=== PATIENT | male | born 1980 | race Caucasian/White ===

== ENCOUNTER 2016-10-19 15:09 | Emergency (ER) | payer OTHER ==
[2016-10-19 16:30] VITALS: BP 153/84
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
[2016-10-19] MEDS: Ibuprofen TAB* 400 MG PO ONE (16:56)
[2016-10-19] MEDS ORDERED: Ibuprofen TAB* 400 MG ONE (16:58)
== END 2016-10-19 17:45 | disposition home or self-care (01) ==
LOC: UCEAST 15:09
DX: H61.22 Impacted cerumen, left ear (principal); H92.01 Otalgia, right ear; H91.91 Unspecified hearing loss, right ear; F17.210 Nicotine dependence, cigarettes, uncomplicated; Z71.6 Tobacco abuse counseling
CPT/HCPCS: 99203; A9270-GY; G0463

== ENCOUNTER 2017-03-23 13:06 | Emergency (ER) | payer SELFPAY ==
[2017-03-23 13:47] VITALS: BP 110/72
--- NOTE | 2017-03-23 16:43 | UC ---
Johnson Barton Benjamin, scribed for Dudley Rainey MD on 03/23/17 at 1600 . Skin Complaint HPI - HPI Summary HPI Summary: 36yo male c/o of a tick bite on the left inner thigh Pt found the tick on him on Thursday. Pt reports BERGMAN and body ache, also had red rash initially, but not now. Hx of previous Lyme dz. - History of Current Complaint Chief Complaint: UCSkin Time Seen by Provider: 03/23/17 15:54 Stated Complaint: TICK BITE Hx Obtained From: Patient Onset/Duration: Sudden Onset, Lasting Days - 3 days, Still Present, Worse Since - progressing Timing: Constant Onset Severity: Mild Current Severity: Moderate Pain Scale Used: 0-10 Numeric Location: Other - left thigh Aggravating: Nothing Alleviating: Nothing Associated Signs & Symptoms: Positive: Rash - red rash on left thigh - Allergy/Home Medications Allergies/Adverse Reactions: Allergies Allergy/AdvReac Type Severity Reaction Status Date / Time No Known Allergies Allergy Verified 05/24/15 14:53 Home Medications: Home Medications Acetaminophen [Tylenol] 325 mg PO 03/23/17 [History] Ibuprofen TAB* [Advil TAB*] 400 mg PO Q6H PRN 03/23/17 [History Confirmed ] Review of Systems Constitutional: Fatigue Skin: Negative Eyes: Negative ENT: Negative Respiratory: Negative Cardiovascular: Negative Gastrointestinal: Negative Genitourinary: Negative Motor: Negative Neurovascular: Negative Musculoskeletal: Other: - neck tenderness Neurological: Negative, Other - Headache Psychological: Negative All Other Systems Reviewed And Are Negative: Yes PMH/Surg Hx/FS Hx/Imm Hx Previously Healthy: No - Lyme Dz. - Surgical History Surgical History: None - Family History Known Family History: Positive: Diabetes Negative: Cardiac Disease, Hypertension - Social History Alcohol Use: None Substance Use Type: None Smoking Status (MU): Heavy Every Day Tobacco Smoker Type: Cigarettes Amount Used/How Often: 1 ppd Length of Time of Smoking/Using Tobacco: Began at 27 years of age Have You Smoked in the Last Year: Yes - Immunization History Most Recent Influenza Vaccination: "not sure" Most Recent Tetanus Shot: 2010 Most Recent Pneumonia Vaccination: "not sure" Physical Exam Triage Information Reviewed: Yes Appearance: Well-Appearing, No Pain Distress, Well-Nourished Vital Signs: Initial Vital Signs Temp 98.3 F 03/23/17 13:41 Pulse 81 03/23/17 13:41 Resp 18 03/23/17 13:41 BP 110/72 03/23/17 13:41 Pulse Ox 100 03/23/17 13:41 Vital Signs Reviewed: Yes Eyes: Positive: Conjunctiva Clear ENT: Positive: Normal ENT inspection Neck: Positive: Supple, Nontender Respiratory: Positive: Chest non-tender, Lungs clear, Normal breath sounds Cardiovascular: Positive: RRR, No Murmur Musculoskeletal: Positive: Strength Intact, ROM Intact Neurological: Positive: Alert, Muscle Tone Normal Psychological: Positive: Age Appropriate Behavior Skin: Negative: rashes Course/Dx - Course Course Of Treatment: Reviewed medications list. PATIENT REPORTS THE SAME SX PRIOR LYME DISEASE AFTER A TICK BITE. WILL TREAT FOR LYME. - Diagnoses Provider Diagnoses: TICK BITE, ARTHRALGIA Discharge - Discharge Plan Condition: Stable Disposition: HOME Prescriptions: DOXYcycline CAP(*) [DOXYcycline 100MG CAP(*)] 100 mg PO BID #42 cap Patient Education Materials: Tick Bite (ED) Referrals: No Primary Care Phys,NOPCP [Primary Care Provider] - Additional Instructions: FOLLOW UP WITH YOUR DOCTOR. GO TO THE EMERGENCY DEPARTMENT FOR ANY WORSENING OF YOUR CONDITION OR QUESTIONS OR CONCERNS. The documentation as recorded by the Johnson barker Benjamin accurately reflects the service I personally performed and the decisions made by , Dudley Rainey MD.
== END 2017-03-23 16:14 | disposition home or self-care (01) ==
LOC: UCEAST 13:06
DX: S70.362A Insect bite (nonvenomous), left thigh, initial encounter (principal); W57.XXXA Bitten or stung by nonvenomous insect and other nonvenomous arthropods, initial encounter; Y92.9 Unspecified place or not applicable; M25.50 Pain in unspecified joint; F17.210 Nicotine dependence, cigarettes, uncomplicated
CPT/HCPCS: 99212; G0463

== ENCOUNTER 2018-02-16 02:42 | Inpatient (IN) | payer OTHER ==
[2018-02-16 03:26] LABS: ABS Basophils 0 10^3/ul (0-0.2); ABS Eosinophils 0.1 10^3/ul (0-0.6); ABS Lymphocytes 2.1 10^3/ul (1.0-4.8); ABS Monocytes 0.5 10^3/ul (0-0.8); ABS Neutrophils 4.2 10^3/ul (1.5-7.7); ABS Nucleated RBC 0 10^3/ul; Hematocrit 42 % (42-52); Hemoglobin 14.3 g/dl (14.0-18.0); Lymphocyte % 30.4 % (25-47); Mean Corpuscular HGB Conc 34 g/dl (31-36); Mean Corpuscular Hemoglobin 32 pg (27-31); Mean Corpuscular Volume 94 fL (80-94); Mean Platelet Volume 8.4 um3 (7.4-10.4); Nucleated Red Blood Cells % 0; Platelet Count 191 10^3/ul (150-450); Red Blood Count 4.46 10^6/ul (4.0-5.4); Red Cell Distribution Width 14 % (10.5-15); White Blood Count 6.8 10^3/ul (3.5-10.8)
[2018-02-16 03:27] LABS: Urine Appearance Clear; Urine Blood Negative (Negative); Urine Color Straw; Urine Ketones Negative (Negative); Urine Protein Negative (Negative); Urine Specific Gravity 1.006 (1.010-1.030); Urine Urobilinogen Negative (Negative)
[2018-02-16 03:43] LABS: EGFR Non-African American 81.7 (>60)
--- NOTE | 2018-02-16 06:51 | ED ---
Jyoti Barton Emily, scribed for Jordan Hough MD on 02/16/18 at 0319 . Psychiatric Complaint - HPI Summary HPI Summary: This patient is a 37 year old M presenting to [facility] with a chief complaint of SI with plan that began SUSTAINABLE AGRICULTURE FACULTY. Pt reports [place] bridge [place] 2 hours SUSTAINABLE AGRICULTURE FACULTY thinking about hanging himself. The patient rates the pain 0/10 in severity. Symptoms aggravated by nothing. Symptoms alleviated by nothing. Patient denies auditory hallucination. Pt reports he does not take his medication because it doesnt change his outcome. - History Of Current Complaint Chief Complaint: EDMentalHealth Hx Obtained From: Patient Onset/Duration: Sudden Onset, Lasting Hours, Still Present Timing: Constant Severity Initially: Moderate Severity Currently: Moderate Character: Depressed Aggravating Factor(s): Nothing Alleviating Factor(s): Nothing Has Suicidal: Reports: Thoughts, With A Plan - Allergies/Home Medications Allergies/Adverse Reactions: Allergies Allergy/AdvReac Type Severity Reaction Status Date / Time No Known Allergies Allergy Verified 02/16/18 04:16 Home Medications: Home Medications Wellbutrin TAB* 02/16/18 [History] PMH/Surg Hx/FS Hx/Imm Hx Previously Healthy: No Musculoskeletal History: Reports: Other Musculoskeletal History - broke right hand last year Neurological History: Denies: Hx Dementia, Hx Developmental Delay, Hx Headaches, Hx Migraine, Hx Nerve Disease, Hx Seizures, Hx Spinal Cord Injury, Hx Transient Ischemic Attacks (TIA), Other Neuro Impairments/Disorders Psychiatric History: Denies: Hx Eating Disorder, Hx of Violent Episodes Against Others Infectious Disease History: No Infectious Disease History: Denies: Hx Clostridium Difficile, Hx Hepatitis, Hx Human Immunodeficiency Virus (HIV), Hx of Known/Suspected MRSA, Hx Shingles, Hx Tuberculosis, Hx Known/ Suspected VRE, Hx Known/Suspected VRSA, History Other Infectious Disease, Traveled Outside the [place] in Last 30 Days - Family History Known Family History: Positive: Diabetes Negative: Cardiac Disease, Hypertension - Social History Occupation: Employed Full-time Lives: Long Term Alcohol Use: None Hx Substance Use: No Substance Use Type: Reports: None Hx Tobacco Use: Yes Smoking Status (MU): Heavy Every Day Tobacco Smoker Type: Cigarettes Amount Used/How Often: 1 ppd Length of Time of Smoking/Using Tobacco: Began at 27 years of age Have You Smoked in the Last Year: Yes Review of Systems Negative: Fever Psychological: Other - Positive SI All Other Systems Reviewed And Are Negative: Yes Physical Exam - Summary Physical Exam Summary: VITAL SIGNS: Reviewed. GENERAL: ~Patient is a well-developed and nourished male who is lying comfortable in the stretcher. Patient is not in any acute respiratory distress. HEAD AND FACE: No signs of trauma. No ecchymosis, hematomas or skull depressions. No sinus tenderness. EYES: PERRLA, EOMI x 2, No injected conjunctiva, no nystagmus. EARS: Hearing grossly intact. Ear canals and tympanic membranes are within normal limits. MOUTH: Oropharynx within normal limits. NECK: Supple, trachea is midline, no adenopathy, no JVD, no carotid bruit, no c- spine tenderness, neck with full ROM. CHEST: Symmetric, no tenderness at palpation LUNGS: Clear to auscultation bilaterally. No wheezing or crackles. CVS: Regular rate and rhythm, S1 and S2 present, no murmurs or gallops appreciated. ABDOMEN: Soft, non-tender. No signs of distention. No rebound no guarding, and no masses palpated. Bowel sounds are normal. EXTREMITIES: FROM in all major joints, no edema, no cyanosis or clubbing. NEURO: Alert and oriented x 3. No acute neurological deficits. Speech is normal and follows commands. PSYCH: Cooperative, seems sad, withdrawn SKIN: Dry and warm Triage Information Reviewed: Yes Vital Signs On Initial Exam: Initial Vitals Temp Pulse Resp BP Pulse Ox 97.5 F 93 16 140/89 98 02/16/18 02:44 02/16/18 02:44 02/16/18 02:44 02/16/18 02:44 02/16/18 02:44 Vital Signs Reviewed: Yes Diagnostics - Vital Signs Vital Signs Temp Pulse Resp BP Pulse Ox 02/16/18 02:44 97.5 F 93 16 140/89 98 - Laboratory Result Diagrams: 02/16/18 03:13 02/16/18 03:13 Lab Statement: Any lab studies that have been ordered have been reviewed, and results considered in the medical decision making process. Course/Dx - Course Course Of Treatment: This patient is a 37 year old M presenting to [facility] with a chief complaint of SI with plan that began SUSTAINABLE AGRICULTURE FACULTY. Pt reports [place] was [place] bridge for 2 hours SUSTAINABLE AGRICULTURE FACULTY thinking about hanging himself. Per [facility], the patient will be admitted for further evaluation. The patient is agreeable with this plan. - Differential Dx/Clinical Impression Provider Diagnosis: Depression Discharge - Sign-Out/Discharge Documenting (check all that apply): Discharge/Admit/Transfer - Admit to [facility] [place] - Discharge Plan Condition: Stable Disposition: ADMITTED TO [facility] documentation as recorded by the Jyoti barker Emily accurately reflects the service I personally performed and the decisions made by me, Jordan Hough MD.
[2018-02-16] MEDS ORDERED: Acetaminophen TAB* 325 MG PO ONE (06:52)
--- NOTE | 2018-02-16 07:27 | PN ---
ED Flex Patient Progress Note Subjective: This is a 37 year-old M who is pending admission to [facility] secondary to SI w/ plan . Pt offers no complaints at this time. Admits he's not been taking his Wellbutrin for the past month. Has not had anything to eat or drink since he's been here but would like breakfast this morning. Objective: Vitals: Most recent vital signs documented below. General patient sleeping upon entrance term however he is easily arousable with vocal stimulation - NAD, Alert and oriented x3. Heart: rrr, S1-S2 Lungs: CTA, breathing easily AB: Soft, nontender to palpation, positive bowel sounds Integ: Warm, dry, well perfused Assessment: SI with plan Plan: Pending psychiatric admit (voluntary). While in ED Will follow up daily . Vital Signs Temp Pulse Resp BP Pulse Ox 97.5 F 93 16 140/89 98 02/16/18 02:44 02/16/18 02:44 02/16/18 02:44 02/16/18 02:44 02/16/18 02:44 Lab Results - Entire Visit 02/16/18 02/16/18 02/16/18 03:13 03:13 03:13 WBC RBC Hgb Hct MCV MCH MCHC RDW Plt Count MPV Neut % (Auto) Lymph % (Auto) [place] % (Auto) Eos % (Auto) Baso % (Auto) Absolute Neuts (auto) Absolute Lymphs (auto) Absolute Monos (auto) Absolute Eos (auto) Absolute Basos (auto) Absolute Nucleated RBC Nucleated RBC % Sodium 141 Potassium 3.9 Chloride 107 Carbon Dioxide 24 Anion Gap 10 BUN 15 Creatinine 1.02 Est GFR ( Amer) 105.1 Est GFR (Non-Af Amer) 81.7 BUN/Creatinine Ratio 14.7 Glucose 106 H Calcium 8.7 Total Bilirubin 0.60 AST 32 ALT 31 Alkaline Phosphatase 45 Total Protein 6.7 Albumin 4.3 Globulin 2.4 Albumin/Globulin Ratio 1.8 TSH 1.45 Urine Color Straw Urine Appearance Clear Urine pH 6.0 Ur Specific [place] 1.006 L Urine Protein Negative Urine Ketones Negative Urine Blood Negative Urine Nitrate Negative Urine Bilirubin Negative Urine Urobilinogen Negative Ur Leukocyte Esterase Negative Urine Glucose Negative Salicylates < 2.50 Urine Opiates Screen None detected Acetaminophen < 15 Ur Barbiturates Screen None detected Ur Phencyclidine Scrn None detected Ur Amphetamines Screen None detected U Benzodiazepines Scrn None detected [place] < 0.10 L Urine Cocaine Screen Presumptive positive A U Cannabinoids Screen None detected Serum Alcohol 144 H 02/16/18 03:13 WBC 6.8 RBC 4.46 Hgb 14.3 Hct 42 MCV 94 MCH 32 H MCHC 34 RDW 14 Plt Count 191 MPV 8.4 Neut % (Auto) 61.3 Lymph % (Auto) 30.4 [place] % (Auto) 6.8 Eos % (Auto) 1.0 Baso % (Auto) 0.5 Absolute Neuts (auto) 4.2 Absolute Lymphs (auto) 2.1 Absolute Monos (auto) 0.5 Absolute Eos (auto) 0.1 Absolute Basos (auto) 0 Absolute Nucleated RBC 0 Nucleated RBC % 0 Sodium Potassium Chloride Carbon Dioxide Anion Gap BUN Creatinine Est GFR ( Amer) Est GFR (Non-Af Amer) BUN/Creatinine Ratio Glucose Calcium Total Bilirubin AST ALT Alkaline Phosphatase Total Protein Albumin Globulin Albumin/Globulin Ratio TSH Urine Color Urine Appearance Urine pH Ur Specific [place] Urine Protein Urine Ketones Urine Blood Urine Nitrate Urine Bilirubin Urine Urobilinogen Ur Leukocyte Esterase Urine Glucose Salicylates Urine Opiates Screen Acetaminophen Ur Barbiturates Screen Ur Phencyclidine Scrn Ur Amphetamines Screen U Benzodiazepines Scrn [place] Urine Cocaine Screen U Cannabinoids Screen Serum Alcohol
[2018-02-16] MEDS ORDERED: Nicotine Inhaler* 10 MG AMP INH PRN (10:54)
[2018-02-16] MEDS ORDERED: Al Hydrox/Mg Hydrox/Simet LIQ* 30 ML UDC PO PRN (10:54)
[2018-02-16] MEDS ORDERED: Acetaminophen TAB* 325 MG PO PRN (10:54)
[2018-02-16] MEDS ORDERED: Mouth Piece, Nicotine* 1 EACH CARTRIDGE INH ONE (11:00)
[2018-02-16] MEDS: Vitamin THERAPEUTIC TAB PO SCH (13:10)
[2018-02-16] MEDS: Nicotine GUM* 2 MG PO PRN ×2 (15:12→19:04)
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
[2018-02-16] MEDS: Lithium Carbonate TAB* 300 MG PO SCH (21:47)
[2018-02-17] MEDS: Nicotine PATCH 21 MG/24 HR* PATCH TRANSDERM SCH (08:46)
[2018-02-17] MEDS: buPROPion SR TAB.SR* 100 MG PO SCH (08:47)
[2018-02-17] MEDS: Vitamin THERAPEUTIC TAB PO SCH (08:47)
[2018-02-17] MEDS: Nicotine GUM* 2 MG PO PRN ×5 (08:47→23:21)
--- NOTE | 2018-02-17 16:05 | PN ---
Subjective - Subjective Date of Service: 02/17/18 Service Type: 29739 Hosp care 25 min moderate complexity Subjective: Patient reports continued frustrated mood in regards to stressor of family court. He minimizes recent use of alcohol and cocaine and blames various external factors. Patient identifies needing spirituality and that his discussion with chief deputyAlan was extremely helpful. Patient denies need for medications and cites history of months at a time of sobriety and mental stability without prescription medications. Patient denies suicidal ideation or passive wish. Executive Marketing Assistant discussed importance of 1-2 years of abstinence to differentiate between substance induced mood disorders and other psychiatric diagnoses. Objective - Appearance Appearance: Well Developed/Nourished Dysmorphic Features: No Hygiene: Normal Grooming: Well Kept - Behavior Psychomotor Activities: Normal Exhibits Abnormal Movement: No - Attitude and Relatedness Attitude and Relatedness: Superficially Cooperative Eye Contact: Good - Speech Quality: Unpressured Latencies: Normal Quantity: Appropriate - Mood Patient's Decription of Mood: "frustrated" - Affect Observed Affect: Good Affect Consistent with: Euthymia - Thought Process Patient's Thought Process: Coherent, Goal Directed Thought Content: No Passive Wish, No Suicidal Planning, No Homicidal Ideation, No Paranoid Ideation - Sensorium Experiencing Hallucinations: No, Sensorium is Clear Type of Hallucinations: Visual: No, Auditory: No, Command: No - Level of Consciousness Level of Consciousness: Alert Orientation: Yes Intact, Yes Orientated to Time, Yes Orientated to Place, Yes Orientated to Person - Impulse Control Impulse Control: Intact - Insight and Judgement Insight and Judgement: Fair - Group Participation Particating in Group Activities: Yes - Medication Management Medication Management Adherence: Yes Assessment - Assessment Merits Inpatient Hospitalization: For Immediate Safety, For Stabilization, For Discharge Planning Inpatient DSM-V Dx: F43.25 Clinical Impression: 37yo white male who presented to ED with suicidal ideation and recent relapse with alcohol and cocaine. He is court-ordered to probation and [facility] outpatient treatment. He merits hospitalization for immediate safety and stabilization. Plan - Plan Treatment Plan: Name: BRITTNEY RICE Birthdate: 1980 [id number] continue acute intensive psychiatric treatment. continue medications as prescribed. discharge planning to include outpatient providers. Continued Medication Management: Different Medication Medications: Current Medications Acetaminophen (Tylenol Tab*) 650 mg PO Q4H PRN PRN Reason: for pain; or Temp >101 F Last Admin: 02/16/18 15:11 Dose: 650 mg Al Hydrox/Mg Hydrox/Simethicone (Maalox Plus*) 30 ml PO Q4H PRN PRN Reason: INDIGESTION Bupropion HCl (Wellbutrin Sr Tab*) 100 mg PO DAILY [facility] Last Admin: 02/17/18 08:47 Dose: 100 mg Witt Carbonate (Witt Carbonate Tab*) 300 mg PO BEDTIME [facility] Last Admin: 02/16/18 21:47 Dose: 300 mg Multivitamins (Theragran Tab*) 1 tab PO DAILY [facility] Last Admin: 02/17/18 08:47 Dose: 1 tab Nicotine (Nicotine Inhaler*) 10 mg INH Q2H PRN PRN Reason: CRAVING Nicotine (Nicotine Patch 21 Mg/24 Hr*) 1 patch TRANSDERM DAILY@0800 [facility] Last Admin: 02/17/18 08:46 Dose: 1 patch Nicotine Polacrilex (Nicotine Gum*) 2 mg PO Q2H PRN PRN Reason: CRAVING Last Admin: 02/17/18 12:11 Dose: 2 mg Pharmacy Profile Note (Nicotine Patch Removal Note*) 1 note PATCH OFF 2100 [facility] - Discharge Plan Discharge Plan: Outpatient Follow Up Outpatient Program: Private Clinician(s)
[2018-02-17] MEDS ORDERED: Nicotine Patch Removal NOTE PATCH OFF SCH (21:00)
[2018-02-17] MEDS: Lithium Carbonate TAB* 300 MG PO SCH (21:02)
[2018-02-17] MEDS ORDERED: diPHENhydraMINE PO* 50 MG PO PRN (21:24)
[2018-02-18 07:29] VITALS: BP 114/63
[2018-02-18] MEDS: buPROPion SR TAB.SR* 100 MG PO SCH (09:35)
[2018-02-18] MEDS: Vitamin THERAPEUTIC TAB PO SCH (09:35)
[2018-02-18] MEDS: Nicotine PATCH 21 MG/24 HR* PATCH TRANSDERM SCH (09:36)
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
== END 2018-02-18 14:15 | disposition home or self-care (01) | DRG 755 ==
LOC: ED 02:42 → BSU 10:34
PROVIDERS: ADMIT Psychiatry & Neurology Psychiatry; ATTEND Psychiatry & Neurology Psychiatry
DX: F43.25 Adjustment disorder with mixed disturbance of emotions and conduct (principal); R45.851 Suicidal ideations; Y90.6 Blood alcohol level of 120-199 mg/100 ml; F17.210 Nicotine dependence, cigarettes, uncomplicated; F90.9 Attention-deficit hyperactivity disorder, unspecified type; F31.9 Bipolar disorder, unspecified; F14.94 Cocaine use, unspecified with cocaine-induced mood disorder; Z91.14 Patient's other noncompliance with medication regimen; Z91.5 Personal history of self-harm; Z91.19 Patient's noncompliance with other medical treatment and regimen; Z91.410 Personal history of adult physical and sexual abuse; Z72.89 Other problems related to lifestyle; Z83.3 Family history of diabetes mellitus
CPT/HCPCS: 36415; 80053; 80061; 80178; 80307; 80320; 80329; 81003; 83036; 84443; 85025; 99222; 99232; 99238; 99284; A9270-GY; G0480

== ENCOUNTER 2018-08-09 20:59 | Inpatient (IN) | payer OTHER ==
--- NOTE | 2018-08-09 21:16 | ED ---
Psychiatric Complaint - HPI Summary HPI Summary: A 37 y/o M presents to ED brought in by ambulance and police for 941 mental health evaluation, SI with attempt. Per EMS: pt made attempts to hang himself today. At bedside, pt is handcuffed, avoiding eye contact and answering questions quietly. He states drinking ETOH today but denies using drugs. Pt is not medication compliant. Mother told nurse that patient took an unknown amount of Klonopin tonight. Pert PMHx: anxiety, ADHD, in-patient mental health treatment, suicide attempts. - History Of Current Complaint Chief Complaint: EDMentalHealth Time Seen by Provider: 08/09/18 21:10 Hx Obtained From: Patient, EMS, Other: - nurse Onset/Duration: Still Present Timing: Constant Related History: Positive For: Prior Psychiatric Issues Has Suicidal: Reports: Thoughts, Demonstrates Gesture - Allergies/Home Medications Allergies/Adverse Reactions: Allergies Allergy/AdvReac Type Severity Reaction Status Date / Time No Known Allergies Allergy Verified 08/09/18 22:49 Home Medications: Home Medications NK [No Home Medications Reported] 08/09/18 [History Confirmed 08/09/18] PMH/Surg Hx/FS Hx/Imm Hx Previously Healthy: No Musculoskeletal History: Reports: Other Musculoskeletal History - broke right hand last year Sensory History: Denies: Hx Contacts or Glasses, Hx Hearing Aid Opthamlomology History: Denies: Hx Contacts or Glasses Neurological History: Denies: Hx Dementia, Hx Developmental Delay, Hx Headaches, Hx Migraine, Hx Nerve Disease, Hx Seizures, Hx Spinal Cord Injury, Hx Transient Ischemic Attacks (TIA), Other Neuro Impairments/Disorders Psychiatric History: Reports: Hx Anxiety, Hx Attention Deficit Hyperactivity Disorder, Hx Depression, Hx Inpatient Treatment, Hx Community Mental Health Tx, Hx Suicide Attempt, Hx Substance Abuse Denies: Hx Eating Disorder, Hx of Violent Episodes Against Others Infectious Disease History: No Infectious Disease History: Reports: History Other Infectious Disease - varicella as a kid Denies: Hx Clostridium Difficile, Hx Hepatitis, Hx Human Immunodeficiency Virus (HIV), Hx of Known/Suspected MRSA, Hx Shingles, Hx Tuberculosis, Hx Known/ Suspected VRE, Hx Known/Suspected VRSA, Traveled Outside the [place] in Last 30 Days - Family History Known Family History: Positive: Diabetes Negative: Cardiac Disease, Hypertension - Social History Occupation: Unemployed - OTHER Lives: With Family Alcohol Use: ETOH 144 Hx Substance Use: No Substance Use Type: Reports: Cocaine Substance Use Comment - Amount & Last Used: Lab results was positive for cocaine Hx Tobacco Use: Yes Smoking Status (MU): Heavy Every Day Tobacco Smoker Type: Cigarettes Amount Used/How Often: 1 ppd Length of Time of Smoking/Using Tobacco: Began at 27 years of age Have You Smoked in the Last Year: Yes Review of Systems Negative: Fever Negative: Cough Psychological: Other - pos: SI with gesture All Other Systems Reviewed And Are Negative: Yes Physical Exam - Summary Physical Exam Summary: Appearance: Well-appearing, Well-nourished, lying in bed comfortable Skin: Warm, dry, no obvious rash Eyes: sclera anicteric, no conjunctival pallor ENT: mucous membranes moist Neck: deferred Respiratory: No signs of respiratory distress Cardiovascular: Appears well perfused, pulses are nml Abdomen: deferred Musculoskeletal: Moving all 4 extremities without obvious discomfort Neurological: Awake and alert, mentation is normal, speech is fluent and appropriate Psychiatric: affect is guarded Triage Information Reviewed: Yes Vital Signs On Initial Exam: Initial Vitals Temp Pulse Resp BP Pulse Ox 99.2 F 91 16 129/89 97 08/09/18 21:06 08/09/18 21:06 08/09/18 21:06 08/09/18 21:06 08/09/18 21:06 Vital Signs Reviewed: Yes Diagnostics - Vital Signs Vital Signs Temp Pulse Resp BP Pulse Ox 08/09/18 21:06 99.2 F 91 16 129/89 97 - Laboratory Result Diagrams: 08/09/18 21:38 08/09/18 21:38 Lab Statement: Any lab studies that have been ordered have been reviewed, and results considered in the medical decision making process. Course/Dx - Course Course Of Treatment: This is a 29-year-old male with history of mental illness presents with suicidal behaviors. His lab work is unremarkable with an alcohol level that is only 40. He is medically cleared for mental health evaluation. At 0135, spoke with network lead: pt will be an involuntary admission per Dr. Kaye, psych. - Differential Dx/Clinical Impression Provider Diagnosis: Substance induced mood disorder Discharge - Sign-Out/Discharge Documenting (check all that apply): Patient Departure - ADM - BHU - Discharge Plan Condition: Fair Disposition: PSYCHIATRIC FACILITY-[facility] Referrals: No Primary Care Phys,NOPCP [Primary Care Provider] - - Billing Disposition and Condition Condition: FAIR Disposition: Psychiatric Facility [facility] - Attestation Statements Document Initiated by Lucero: Yes Documenting Scribe: Krystin Gordillo Provider For Whom Lucero is Documenting (Include Credential): Dr. Elliott Levi MD Scribe Attestation: IKrystin, scribed for Dr. Elliott Levi MD on 08/10/18 at 0512. Scribe Documentation Reviewed: Yes Provider Attestation: The documentation as recorded by the lucero, Krystin Gordillo accurately reflects the service I personally performed and the decisions made by me, Dr. Elliott Levi MD
[2018-08-09 21:48] LABS: ABS Basophils 0.1 10^3/ul (0-0.2); ABS Eosinophils 0.1 10^3/ul (0-0.6); ABS Lymphocytes 2.4 10^3/ul (1.0-4.8); ABS Monocytes 0.6 10^3/ul (0-0.8); ABS Neutrophils 4.5 10^3/ul (1.5-7.7); ABS Nucleated RBC 0 10^3/ul; Eosinophil % 0.8 %; Hematocrit 42 % (42-52); Hemoglobin 14.3 g/dl (14.0-18.0); Lymphocyte % 30.8 %; Mean Corpuscular HGB Conc 34 g/dl (31-36); Mean Corpuscular Hemoglobin 32 pg (27-31); Mean Corpuscular Volume 95 fL (80-94); Mean Platelet Volume 7.9 fL (7.4-10.4); Nucleated Red Blood Cells % 0.1; Platelet Count 232 10^3/ul (150-450); Red Blood Count 4.44 10^6/ul (4.00-5.40); Red Cell Distribution Width 14 % (10.5-15); White Blood Count 7.6 10^3/ul (3.5-10.8)
[2018-08-09 21:53] LABS: Urine Appearance Clear; Urine Blood Negative (Negative); Urine Color Yellow; Urine Ketones Negative (Negative); Urine Protein Negative (Negative); Urine Specific Gravity 1.009 (1.010-1.030); Urine Urobilinogen Negative (Negative)
[2018-08-09 22:08] LABS: EGFR Non-African American 80.8 (>60); Lithium < 0.10 mmol/L (0.6-1.2)
[2018-08-09] MEDS ORDERED: Mouth Piece, Nicotine* 1 EACH CARTRIDGE INH ONE (23:00)
[2018-08-10] MEDS ORDERED: Nicotine Inhaler* 10 MG AMP INH PRN (07:58)
[2018-08-10] MEDS ORDERED: Al Hydrox/Mg Hydrox/Simet LIQ* 30 ML UDC PO PRN (07:58)
[2018-08-10] MEDS ORDERED: Acetaminophen TAB* 325 MG PO PRN (07:58)
[2018-08-10] MEDS ORDERED: Mouth Piece, Nicotine* 1 EACH CARTRIDGE INH SCH (07:58)
[2018-08-10] MEDS: Nicotine GUM* 2 MG PO PRN ×4 (13:35→21:19)
[2018-08-10] MEDS: Nicotine Inhaler* 10 MG AMP INH PRN ×2 (13:36→19:08)
[2018-08-10] MEDS: Vitamin THERAPEUTIC TAB PO SCH (13:39)
[2018-08-10] MEDS: Nicotine PATCH 21 MG/24 HR* PATCH TRANSDERM SCH (13:39)
[2018-08-10] MEDS ORDERED: Nicotine Patch Removal NOTE PATCH OFF SCH (21:00)
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
[2018-08-11 10:44] VITALS: BP 106/52
[2018-08-11] MEDS: Nicotine PATCH 21 MG/24 HR* PATCH TRANSDERM SCH (10:50)
[2018-08-11] MEDS: Vitamin THERAPEUTIC TAB PO SCH (10:51)
--- NOTE | 2018-08-12 10:54 | DS ---
DISCHARGE SUMMARY: DATE OF ADMISSION: 08/10/18 DATE OF DISCHARGE: 08/11/18 SUPERVISING PSYCHIATRIST: Teja Rascon MD DIAGNOSES: 1. Substance-induced mood disorder. 2. Adjustment disorder. 3. Tobacco use disorder. 4. Cocaine use disorder. 5. Alcohol use disorder. CONDITION AT THE TIME OF DISCHARGE: Unchanged. Patient denies depression, gilma. He reports suicidal ideation contingent upon being placed in longterm. Investigation Division Lieutenant has informed law enforcement of patient's statements and suggested increased monitoring while patient is incarcerated. He was discharged to [place] [employer] and is knowledgeable of pending legal implications. The patient has declined offers for mental health or substance use treatment. The patient has declined release of information to speak with any family members or providers. He has refused offer of medications and denies mental health symptoms. Without giving specific details, teletypewriter installer spoke with psychiatrist who covers senior living to inform him of patient's reason for hospitalization. MENTAL STATUS EXAM: The patient is lying in bed upon approach, easy to rouse. During conversation, he participates in superficial ADLs. He is alert and oriented x3. Eye contact is poor. Speech is soft and mumbled. He declines to engage in conversation. Mood is irritable. Affect is restricted. Thought process is circumstantial. Thought content is negative for AH, VH, or delusions. He denies HI or . He threatened suicidal ideation if placed in longterm. Concentration is adequate. Memory is 3/3. Insight and judgment are fair. Fund of knowledge is adequate. INSTRUCTIONS GIVEN TO PATIENT: A. Medications: None. B. Diet is regular. C. Activity: Ambulation as tolerated. Tobacco cessation declined by patient. There are no pending labs or diagnostic studies at the time of discharge. D. Followup Care: The patient declines offer of followup. He is actively engaged in probation and most recently [facility]. E. Substance use followup: The patient is a client of [facility]. He declined offer of medications for alcohol or substance use disorder. HOSPITAL COURSE: Part A: Reason for admission: Please see full H and P dictated by this teletypewriter installer on 08/10/18. The patient presented to the emergency department via police after his mother phoned due to concern of suicidal ideation and an interrupted attempt. The patient was admitted to the adult behavioral services unit on an involuntary status. Code status was full. He was placed on 15-minute checks for his safety. Part B: Psychiatric treatment rendered: The patient was encouraged to participate in supportive milieu, individual sessions with staff and psychoeducational groups. He was resistant to meeting with treatment team or other staff members. He declined offer of medications. He declined mental health symptoms. He declined to sign release of information for family members or outpatient providers. The patient was seclusive to his room. He refused meals. He was notified of information obtained from [place] [employer] that he will be discharged to them and stated prior knowledge of this. During discharge process, the patient was irritable, but cooperative. As stated above, teletypewriter installer notified police officers of patient's threats. ISAAC MUNGUIA, KENISHA [id number]/CPS #: [id number] [place]
== END 2018-08-11 11:32 | DRG 774 ==
LOC: ED 20:59 → BSU 08-10 01:25
PROVIDERS: ADMIT Psychiatry & Neurology Psychiatry; ATTEND Psychiatry & Neurology Psychiatry
DX: F14.94 Cocaine use, unspecified with cocaine-induced mood disorder (principal); R45.851 Suicidal ideations; F10.10 Alcohol abuse, uncomplicated; Y90.2 Blood alcohol level of 40-59 mg/100 ml; F12.90 Cannabis use, unspecified, uncomplicated; F17.210 Nicotine dependence, cigarettes, uncomplicated; F60.2 Antisocial personality disorder; Z83.3 Family history of diabetes mellitus
CPT/HCPCS: 36415; 80053; 80178; 80307; 80320; 80329; 81003; 84443; 85025; 99284; A9270-GY; G0480

== ENCOUNTER 2018-10-12 23:00 | Emergency (ER) | payer OTHER ==
--- NOTE | 2018-10-12 23:21 | ED ---
Substance Abuse/Use - HPI Summary HPI Summary: Pt is a 37 y/o male brought in by EMS and police who presents to the ED s/p overdose. He took 5-6 pills each around 1 hour ago of the following medications : .1 mg Clonidine, 5 mg Valium, and 350 mg Soma. Police brought a bottle of Demorest as well, but pt denies taking any pills. Pt states he took the pills because he ran out of heroin and is suicidal. He was recently in longterm and was on suicide watch while in there. Pt was brought here by ambulance 1.5 months ago for a suicide attempt via hanging. At that time, he overdosed on Klonopin. He is currently on house arrest. PMHx anxiety, depression, bipolar disorder, and ADHD. - History Of Current Complaint Stated Complaint: OVERDOSE Time Seen by Provider: 10/12/18 23:05 Hx Obtained From: Patient, EMS Ingestion History: Type/Name Of Drug - Soma, clonidine, diazepam, Amount Ingested - 5-6 pills each, Approximate Time Of Ingestion - 1 hour ago Overdose Characteristics: Oral Character: Lethargic Aggravating Factor(s): Nothing Alleviating Factor(s): Nothing Associated Signs And Symptoms: Intentional Ingestion, Other: - SI Related Hx: Suicidal: Prior Attempt(s), Prior Psych Admission, Suicidal: Thoughts, Suicidal: Gesture - Allergies/Home Medications Allergies/Adverse Reactions: Allergies Allergy/AdvReac Type Severity Reaction Status Date / Time No Known Allergies Allergy Verified 10/12/18 23:17 Home Medications: Home Medications Diazepam TAB(*) 5 mg PO BID 10/13/18 [History Confirmed 10/13/18] Demorest Carbonate ER TAB* 300 mg PO QAM 10/13/18 [History Confirmed 10/13/18] Demorest Carbonate ER TAB* 600 mg PO BEDTIME 10/13/18 [History Confirmed 10/13/18 ] Soma TAB* 350 mg PO QID 10/13/18 [History Confirmed 10/13/18] cloNIDine TAB* 0.1 mg PO QID PRN MDD 4 10/13/18 [History Confirmed 10/13/18] PMH/Surg Hx/FS Hx/Imm Hx Endocrine/Hematology History: Denies: Hx Diabetes Musculoskeletal History: Reports: Other Musculoskeletal History - broke right hand last year Sensory History: Denies: Hx Contacts or Glasses, Hx Hearing Aid Opthamlomology History: Denies: Hx Contacts or Glasses Neurological History: Denies: Hx Dementia, Hx Developmental Delay, Hx Headaches, Hx Migraine, Hx Nerve Disease, Hx Seizures, Hx Spinal Cord Injury, Hx Transient Ischemic Attacks (TIA), Other Neuro Impairments/Disorders Psychiatric History: Reports: Hx Anxiety, Hx Attention Deficit Hyperactivity Disorder, Hx Depression, Hx Inpatient Treatment, Hx Community Mental Health Tx, Hx Bipolar Disorder, Hx Suicide Attempt, Hx Substance Abuse - alcohol and cocaine Denies: Hx Eating Disorder, Hx of Violent Episodes Against Others Infectious Disease History: No Infectious Disease History: Reports: Hx Hepatitis - Hep C, History Other Infectious Disease - varicella as a kid Denies: Hx Clostridium Difficile, Hx Human Immunodeficiency Virus (HIV), Hx of Known/Suspected MRSA, Hx Shingles, Hx Tuberculosis, Hx Known/Suspected VRE, Hx Known/Suspected VRSA, Traveled Outside the [place] in Last 30 Days - Family History Known Family History: Positive: Diabetes Negative: Cardiac Disease, Hypertension - Social History Alcohol Use: Daily Hx Substance Use: Yes Substance Use Type: Reports: Cocaine Substance Use Comment - Amount & Last Used: Lab results was positive for cocaine Hx Tobacco Use: Yes Smoking Status (MU): Current Every Day Smoker Type: Cigarettes Amount Used/How Often: 1 ppd Length of Time of Smoking/Using Tobacco: Began at 27 years of age Have You Smoked in the Last Year: Yes Review of Systems Negative: Fever Positive: Other - SI All Other Systems Reviewed And Are Negative: Yes Physical Exam - Summary Physical Exam Summary: Appearance: Well appearing, no pain distress Skin: warm, dry, reflects adequate perfusion Head/face: normal Eyes: EOMI, CARLOS ENRIQUE ENT: mucous membranes moist Neck: supple, non-tender Respiratory: CTA, breath sounds present Cardiovascular: bradycardic but regular rhythm, pulses symmetrical Abdomen: non-tender, soft Bowel Sounds: present Musculoskeletal: normal, strength/ROM intact Neuro: sensory motor intact, A&Ox3, drowsy Psych: SI Triage Information Reviewed: Yes Vital Signs On Initial Exam: Initial Vitals Temp Pulse Resp BP Pulse Ox 97.3 F 68 16 115/80 99 10/12/18 23:00 10/12/18 23:00 10/12/18 23:00 10/12/18 23:00 10/12/18 23:00 Vital Signs Reviewed: Yes Diagnostics - Vital Signs Vital Signs Temp Pulse Resp BP Pulse Ox 10/12/18 23:07 58 16 115/80 98 10/12/18 23:06 54 11 97 10/12/18 23:00 97.3 F 68 16 115/80 99 - Laboratory Result Diagrams: 10/12/18 23:15 10/12/18 23:15 Lab Statement: Any lab studies that have been ordered have been reviewed, and results considered in the medical decision making process. - EKG 23:07 Cardiac Rate: Bradycardia - 57 bpm EKG Rhythm: Sinus Rhythm ST Segment: Normal Summary of EKG Findings: Nl axis, nl intervals Re-Evaluation - Re-Evaluation First Eval Re-Evaluation Time: 03:30 Change: Unchanged Comment: Pt is stable and arousable. His vital signs remain stable. Second Eval Re-Evaluation Time: 05:50 Change: Unchanged Comment: Pt is medically cleared for a MHE. Course/Dx - Course Course Of Treatment: Nurse's notes reviewed. Patient with mixed ingestion 1 hour prior to arrival. Patient is drowsy but able to give us some history. He is persistently suicidal and has recently been discharged from the mental health su. Following discussion with poison control they recommend 6 hour observation in the ER as well as lithium to be repeated at 4 hours. His levels were nontoxic 2. Patient also reports recent heroin use. His vital signs remained stable over about a hours of observation pending mental health evaluation. He was cleared medically for mental health evaluation which is expected to occur after the 7:00 shift change. Patient will be signed out to oncoming ER physician Dr. Travis. - Diagnoses Differential Diagnosis/HQI/PQRI: Positive: Acute Psychosis, Alcohol Abuse, Alcohol Withdrawal, Bipolar Disorder, Depression, Drug Abuse, Suicidal Risk, Other - Suicide attempt, polypharmacy ingestion, cardiovascular collapse/shock Provider Diagnoses: Suicide attempt, Polysubstance overdose - Physician Notifications Discussed Care Of Patient With: Savita Poison Control Time Discussed With Above Provider: 23:30 Instructed by Provider To: Other - Observe for 6 hours. Repeat Demorest test in 4 hours. Narcan as needed for hypotension. Atropine and benzos as needed. - Critical Care Time Critical Care Time: 30-74 min - CCT is EXCLUSIVE of separately billable procedures. Discharge - Sign-Out/Discharge Documenting (check all that apply): Sign-Out Patient Signing out patient TO: Carlos Travis - Discharge Plan Condition: Stable Referrals: No Primary Care Phys,NOPCP [Primary Care Provider] - - Billing Disposition and Condition Condition: STABLE - Attestation Statements Document Initiated by Miranda: Yes Documenting Scribe: Claudia Marr Provider For Whom Miranda is Documenting (Include Credential): Santos Hawthorne MD Scribe Attestation: Claudia Barton, scribed for Santos Hawthorne MD on 10/13/18 at 0611. Scribe Documentation Reviewed: Yes Provider Attestation: The documentation as recorded by the Claudia barker accurately reflects the service I personally performed and the decisions made by me, Santos Hawthorne MD Status of Scribe Document: Viewed
[2018-10-12] MEDS ORDERED: NS 0.9% 1000 ML** 1,000 ML IV ONE ×2 (23:25→23:26)
[2018-10-12] MEDS ORDERED: Charcoal ACTIVATED* 25 GM/120 ML BTL PO ONE (23:27)
[2018-10-12] MEDS: NS 0.9% 1000 ML** 1,000 ML IV ONE (23:32)
[2018-10-12 23:36] LABS: ABS Basophils 0 10^3/ul (0-0.2); ABS Eosinophils 0.1 10^3/ul (0-0.6); ABS Lymphocytes 1.8 10^3/ul (1.0-4.8); ABS Monocytes 0.5 10^3/ul (0-0.8); ABS Neutrophils 3.4 10^3/ul (1.5-7.7); ABS Nucleated RBC 0 10^3/ul; Eosinophil % 1.7 %; Hematocrit 43 % (42-52); Hemoglobin 14.5 g/dl (14.0-18.0); Lymphocyte % 30.8 %; Mean Corpuscular HGB Conc 34 g/dl (31-36); Mean Corpuscular Hemoglobin 32 pg (27-31); Mean Corpuscular Volume 95 fL (80-94); Mean Platelet Volume 8.4 fL (7.4-10.4); Nucleated Red Blood Cells % 0; Platelet Count 205 10^3/ul (150-450); Red Blood Count 4.56 10^6/ul (4.00-5.40); Red Cell Distribution Width 13 % (10.5-15); White Blood Count 5.9 10^3/ul (3.5-10.8)
[2018-10-12 23:55] LABS: ALT 19 U/L (7-52); AST 14 U/L (13-39); Albumin/Globulin Ratio 1.7 (1-3); Alkaline Phosphatase 54 U/L (34-104); Anion Gap 7 mmol/L (2-11); BUN/Creatinine Ratio 12.1 (8-20); Blood Urea Nitrogen 14 mg/dL (6-24); CO2 Carbon Dioxide 27 mmol/L (22-32); Calcium 9.3 mg/dL (8.6-10.3); Chloride 105 mmol/L (101-111); Creatine Kinase 53 U/L (10-223); EGFR African American 85.3 (>60); EGFR Non-African American 70.5 (>60); Globulin 2.3 g/dL (2-4); Glucose 96 mg/dL (70-100); Potassium 3.8 mmol/L (3.5-5.0); Sodium 139 mmol/L (135-145); Total Protein 6.3 g/dL (6.4-8.9)
[2018-10-13 00:03] LABS: Acetaminophen < 15 mcg/mL; Alcohol < 10 mg/dL (<10); Lithium < 0.10 mmol/L (0.6-1.2); Salicylate < 2.50 mg/dL (<30)
[2018-10-13 00:18] LABS: TSH (Thyroid Stimulating Horm) 0.42 mcIU/mL (0.34-5.60)
[2018-10-13 06:19] VITALS: BP 113/71
[2018-10-13 06:38] LABS: Urine Appearance Clear; Urine Bilirubin Negative (Negative); Urine Blood Negative (Negative); Urine Color Yellow; Urine Glucose Negative (Negative); Urine Ketones Negative (Negative); Urine Nitrite Negative (Negative); Urine Protein Negative (Negative); Urine Specific Gravity 1.013 (1.010-1.030); Urine Urobilinogen Negative (Negative)
[2018-10-13 06:54] LABS: Barbiturates Urine Screen None Detected (None Detect); Benzodiazepine Urine Screen Presumptive Positive (None Detect); Urine Cannabinoids Screen Presumptive Positive (None Detect)
--- NOTE | 2018-10-13 07:07 | ED ---
Progress - Progress Note Progress Note: This patient was signed out from Dr. Hawthorne to Dr. Travis upon shift change at 07:00 10/14/[address] Rascon, the patient has been cleared for discharge. Dx: malingering. Course/Dx - Course Course Of Treatment: This patient was signed out from Dr. Hawthorne to Dr. Travis upon shift change at 07:00 10/14/[address] Rascon, the patient has been cleared for discharge. Dx: malingering. - Diagnoses Provider Diagnoses: Malingering - Provider Notifications Discussed Care Of Patient With: Teja Rascon Time Discussed With Above Provider: 09:17 Instructed by Provider To: Other - Per Dr. Rascon, the patient has been cleared for discharge. Dx: malingering. Discharge - Sign-Out/Discharge Documenting (check all that apply): Patient Departure - DC Patient Received Moderate/Deep Sedation with Procedure: No - Discharge Plan Condition: Stable Disposition: HOME Referrals: [facility] [Outside] - Billing Disposition and Condition Condition: STABLE Disposition: Home - Attestation Statements Document Initiated by Scribe: Yes Documenting Scribe: Karsten Mullins Provider For Whom Scribe is Documenting (Include Credential): Carlos Travis MD Scribe Attestation: Karsten Barton scribed for Carlos Travis MD on 10/13/18 at 1744. Scribe Documentation Reviewed: Yes Provider Attestation: The documentation as recorded by the Karsten barker accurately reflects the service I personally performed and the decisions made by Stephanie cruz MD Status of Scribe Document: Viewed
--- NOTE | 2018-10-13 15:04 | PN ---
Progress Note - Progress Note Date of Service: 10/13/18 Note: After this patient's departure from the ED this clinician received further collateral information pertaining to his case. I spoke with his outpatient psychiatric nurse practitioner, Genevieve Tony, who expressed significant concern about his safety. She last saw him in person on October 06 and spoke with him on the phone on October 10. She reports he is increasingly desperate, but was willing to pursue inpatient dual-diagnosis [substance abuse and mental health] treatment at the [facility] in [place], [place]. She had made the arrangements and the patient was accepted and offered a bed-date of October 22. Unfortunately, the sheet metal smith in the patient's felony case would not allow him to go [place] State lines. Ms. Tony strongly supports admission [facility] with follow on substance abuse inpatient rehab thereafter. This clinician then spoke in person to the patient's parents, Mother Fifi Lamas ([phone]) and step-Father Guanaco Abraham ([phone]), who had come to the hospital to alert us to Josse's dangerousness. They report that Josse posted a suicidal message on the social media site [employer] and showed me the posting which made clear reference to ending his own life. They are absolutely supportive of inpatient psychiatric care followed by inpatient drug rehabilitation. They report to me that Josse is likely back at his hotel, accompanied by another family member. I strongly advised them to have him return to the hospital where I agree to treat him as his attending. In the event that he refuses to come or they cannot locate him I encourage them to call the police and have him picked up. I have also collected the contact information for the patient's litigation attorney, Aniya Austin ([phone]), who would likely know more about what sheet metal smith is presiding over his criminal case.
== END 2018-10-13 12:14 | disposition home or self-care (01) ==
LOC: ED 23:00
DX: T46.5X2A Poisoning by other antihypertensive drugs, intentional self-harm, initial encounter (principal); T42.4X2A Poisoning by benzodiazepines, intentional self-harm, initial encounter; T42.8X2A Poisoning by antiparkinsonism drugs and other central muscle-tone depressants, intentional self-harm, initial encounter; Y92.009 Unspecified place in unspecified non-institutional (private) residence as the place of occurrence of the external cause; R00.1 Bradycardia, unspecified; F90.9 Attention-deficit hyperactivity disorder, unspecified type; F41.9 Anxiety disorder, unspecified; F17.210 Nicotine dependence, cigarettes, uncomplicated
CPT/HCPCS: 36415; 80053; 80178; 80307; 80320; 80329; 81003; 82550; 83605; 83930; 84443; 84484; 85025; 93005; 96360; 99284; A9270-GY; G0480

== ENCOUNTER 2018-10-13 16:46 | Inpatient (IN) | payer OTHER ==
[2018-10-13] MEDS ORDERED: Al Hydrox/Mg Hydrox/Simet LIQ* 30 ML UDC PO PRN (16:58)
--- NOTE | 2018-10-13 17:24 | ED ---
Psychiatric Complaint - HPI Summary HPI Summary: A 37 y/o male presents to [facility] with a chief complaint of requesting a mental health re-evaluation on 10/13/18. This patient was evaluated the night of post suicide attempt by overdosing on a mix of drugs. Per triage note, "Pt here for reevaluation post discharge, pt brought in by his sister in law and his mother Pt c/o full body pain "it's like I'm detoxing off of heroin"". The patient claims that he is "pissed off" because he was discharged when he thought he should have been admitted. He claims that this is the 5th or 6th time he has been hospitalized. He has a Hx of depression. He denies any current SI, but is just "pissed off". - History Of Current Complaint Chief Complaint: EDMentalHealth Hx Obtained From: Patient, Family/Battery Repairer Onset/Duration: Sudden Onset, Lasting Hours Timing: Hours Severity Initially: Mild Severity Currently: Mild Character: Angry Aggravating Factor(s): Nothing Alleviating Factor(s): Nothing Associated Signs And Symptoms: Positive: Hostile Has Suicidal: Denies: Thoughts Has Homicidal: Denies: Thoughts - Allergies/Home Medications Allergies/Adverse Reactions: Allergies Allergy/AdvReac Type Severity Reaction Status Date / Time No Known Allergies Allergy Verified 10/13/18 16:52 PMH/Surg Hx/FS Hx/Imm Hx Endocrine/Hematology History: Denies: Hx Diabetes Musculoskeletal History: Reports: Other Musculoskeletal History - broke right hand last year Sensory History: Denies: Hx Contacts or Glasses, Hx Hearing Aid Opthamlomology History: Denies: Hx Contacts or Glasses Neurological History: Denies: Hx Dementia, Hx Developmental Delay, Hx Headaches, Hx Migraine, Hx Nerve Disease, Hx Seizures, Hx Spinal Cord Injury, Hx Transient Ischemic Attacks (TIA), Other Neuro Impairments/Disorders Psychiatric History: Reports: Hx Anxiety, Hx Attention Deficit Hyperactivity Disorder, Hx Depression, Hx Inpatient Treatment, Hx Community Mental Health Tx, Hx Bipolar Disorder, Hx Suicide Attempt, Hx Substance Abuse - alcohol and cocaine Denies: Hx Eating Disorder, Hx of Violent Episodes Against Others Infectious Disease History: No Infectious Disease History: Reports: Hx Hepatitis - Hep C, History Other Infectious Disease - varicella as a kid Denies: Hx Clostridium Difficile, Hx Human Immunodeficiency Virus (HIV), Hx of Known/Suspected MRSA, Hx Shingles, Hx Tuberculosis, Hx Known/Suspected VRE, Hx Known/Suspected VRSA, Traveled Outside the [place] in Last 30 Days - Family History Known Family History: Positive: Diabetes Negative: Cardiac Disease, Hypertension - Social History Alcohol Use: Daily Hx Substance Use: Yes Substance Use Type: Reports: Cocaine Substance Use Comment - Amount & Last Used: Lab results was positive for cocaine Hx Tobacco Use: Yes Smoking Status (MU): Current Every Day Smoker Type: Cigarettes Amount Used/How Often: 1 ppd Length of Time of Smoking/Using Tobacco: Began at 27 years of age Have You Smoked in the Last Year: Yes Review of Systems Negative: Fever Psychological: Other - Negative: SI Positive: Other - Positive: "pissed off" All Other Systems Reviewed And Are Negative: Yes Physical Exam - Summary Physical Exam Summary: GENERAL: Patient is a well-developed and nourished M who is lying comfortable in the stretcher. Patient is not in any acute respiratory distress. HEAD AND FACE: Normocephalic EYES: PERRLA, EOMI x 2. EARS: Hearing grossly intact. MOUTH: Oropharynx within normal limits. NECK: Supple, trachea is midline, no adenopathy, no JVD, no carotid bruit. CHEST: Symmetric, no tenderness at palpation LUNGS: Clear to auscultation bilaterally. No wheezing or crackles. CVS: Regular rate and rhythm, S1 and S2 present, no murmurs or gallops appreciated. ABDOMEN: Soft, non-tender. Bowel sounds are normal. No abdominal abnormal pulsations. EXTREMITIES: Full ROM in all major joints, no edema, no cyanosis or clubbing. NEURO: Alert and oriented x 3. No acute neurological deficits. Speech is normal and follows commands. SKIN: Dry and warm Triage Information Reviewed: Yes Vital Signs On Initial Exam: Initial Vitals Temp Pulse Resp BP Pulse Ox 97.1 F 82 19 165/93 100 10/13/18 16:50 10/13/18 16:50 10/13/18 16:50 10/13/18 16:50 10/13/18 16:50 Vital Signs Reviewed: Yes Diagnostics - Vital Signs Vital Signs Temp Pulse Resp BP Pulse Ox 10/13/18 16:50 97.1 F 82 19 165/93 100 - Laboratory Lab Statement: Any lab studies that have been ordered have been reviewed, and results considered in the medical decision making process. Re-Evaluation - Re-Evaluation First Eval Re-Evaluation Time: 17:20 Change: Unchanged Comment: Cleared for MHE. Course/Dx - Course Course Of Treatment: A 37 y/o male presents to [facility] with a chief complaint of requesting a mental health re-evaluation on 10/13/18. This patient was evaluated the night of 10/12/18 post suicide attempt by overdosing on a mix of drugs. Workup is unremarkable. The physical exam was unremarkable. He denied any currnet SI just claiming that he is currently "pissed off". Per ice cream scooper, Dr. Rascon has decided that the patient will be an involuntary admit. Dx: bipolar - Differential Dx/Clinical Impression Provider Diagnosis: Bipolar disorder - Physician Notifications Discussed Care Of Patient With: Teja Rascon Time Discussed With Above Provider: 17:35 Instructed by Provider To: Other - Per ice cream scooper, Dr. Rascon has decided that the patient will be an involuntary admit. Dx: bipolar Discharge - Sign-Out/Discharge Documenting (check all that apply): Patient Departure - admit - Discharge Plan Condition: Fair Disposition: [facility]CHIATRIC FACILITY[facility] [place] - Billing Disposition and Condition Condition: FAIR Disposition: Psychiatric Facility [facility] [place] - Attestation Statements Document Initiated by Scribe: Yes Documenting Scribe: Karsten Mullins Provider For Whom Miranda is Documenting (Include Credential): Carlos Travis Scribe Attestation: IKarsten, scribed for Carlos Travis on 10/13/18 at 1747. Scribe Documentation Reviewed: Yes Provider Attestation: The documentation as recorded by the Karsten barker accurately reflects the service I personally performed and the decisions made by Stephanie cruz Status of Scribe Document: Viewed
[2018-10-13] MEDS ORDERED: Mouth Piece, Nicotine* 1 EACH CARTRIDGE INH ONE (18:00)
[2018-10-13] MEDS: Lithium Carbonate ER (NF) 300 MG TAB.ER PO SCH (21:59)
[2018-10-13] MEDS: cloNIDine TAB* 0.1 MG PO PRN (23:45)
[2018-10-13] MEDS: Acetaminophen TAB* 325 MG PO PRN (23:45)
[2018-10-13] MEDS: hydrOXYzine HCL TAB* 50 MG PO PRN (23:45)
[2018-10-14] MEDS ORDERED: Carisoprodol TAB* 350 MG ONE (00:53)
[2018-10-14] MEDS ORDERED: LORazepam TAB(*) 1 MG ONE (00:56)
[2018-10-14] MEDS ORDERED: Loperamide CAP* 2 MG ONE (00:56)
[2018-10-14] MEDS ORDERED: Loperamide CAP* 2 MG PO ONE (02:05)
[2018-10-14] MEDS ORDERED: Carisoprodol TAB* 350 MG PO ONE (02:10)
[2018-10-14] MEDS: Acetaminophen TAB* 325 MG PO PRN ×3 (09:25→20:50)
[2018-10-14] MEDS: LORazepam PO 0-6 for WAM protocol PO SCH ×3 (09:26→22:17)
[2018-10-14] MEDS: Lithium Carbonate ER (NF) 300 MG TAB.ER PO SCH ×2 (09:26→20:47)
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
[2018-10-14] MEDS: ARIPiprazole TAB* 5 MG PO SCH (20:48)
[2018-10-14] MEDS: Nicotine GUM* 2 MG PO PRN (20:51)
[2018-10-15] MEDS: hydrOXYzine HCL TAB* 50 MG PO PRN (02:36)
[2018-10-15 08:18] LABS: HDL Cholesterol 42.9 mg/dL
[2018-10-15] MEDS: Lithium Carbonate ER (NF) 300 MG TAB.ER PO SCH ×2 (10:48→21:17)
--- NOTE | 2018-10-15 11:25 | PN ---
Subjective - Subjective Date of Service: 10/15/18 Service Type: 68136 Hosp care 25 min moderate complexity Subjective: I spoke with Josse this morning about a number of issues, starting with his suicidal gesture early this morning, in which he fashioned a noose out of a bed sheet and alerted staff that he had tried to hang himself with it. Josse was promptly placed on constant observations and remains on such at this time. He is sleeping when I enter and I point out that he is missing group therapy, which is essential to his treatment. "Oh, what group is it? I guess they did not tell me." Later, this assertion is contradicted by the 1:1 aide outside his door. 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 With that said, he is taking aripiprazole and lithium as directed and remains accepting of inpatient drug rehab referral. I did speak with unit SW Inga Apple, who contacted [facility] and discovered that they have no knowledge of the patient and do not have a bed date for him on October 22, as was suggested by Josse's outpatient Nurse Practitioner, Genevieve Tony. I left a message with Ms. Tony to clarify. The patient continues to endorse passive SI at this time, saying "I've tried all of this before. It's not going to work." He is encouraged to go to group but falls back asleep after our encounter. Objective - Appearance Appearance: Well Developed/Nourished Dysmorphic Features: No Hygiene: Normal Grooming: Well Kept - Behavior Psychomotor Activities: Abnormal-Decreased Exhibits Abnormal Movement: No - Attitude and Relatedness Attitude and Relatedness: Cooperative Eye Contact: Fair - Speech Quality: Unpressured Latencies: Normal Quantity: Terse - Mood Patient's Decription of Mood: "Irritable" - Affect Observed Affect: Tense Affect Consistent with: Dysphoria - Thought Process Patient's Thought Process: Coherent Thought Content: Yes Passive Wish, No Suicidal Planning, No Homicidal Ideation, No Paranoid Ideation - Sensorium Experiencing Hallucinations: No, Sensorium is Clear Type of Hallucinations: Visual: No, Auditory: No, Command: No - Level of Consciousness Level of Consciousness: Alert Orientation: Yes Intact, Yes Orientated to Time, Yes Orientated to Place, Yes Orientated to Person - Impulse Control Impulse Control: Poor - Insight and Judgement Insight and Judgement: Impaired - Group Participation Particating in Group Activities: No - Medication Management Medication Management Adherence: Yes Assessment - Assessment Merits Inpatient Hospitalization: For Immediate Safety, For Stabilization Inpatient DSM-V Dx: F31.4 Clinical Impression: 37 y.o. , white male with a history of bipolar disorder and polysubstance misuse (opioids, cocaine, alcohol and cannabis) arrives brought in by his parents, seeking admission due to depressed mood, hopelessness about his pending felony legal situation, and suicidal thoughts with recent intentional overdose on alcohol and medication. BSU: Problem List - Patient Problems (1) Bipolar affective, depress, severe Current Visit: Yes Status: Acute Code(s): F31.4 - BIPOLAR DISORD, CRNT EPSD DEPRESS, SEV, W/O PSYCH FEATURES SNOMED Code(s): 534522432 Plan - Plan Treatment Plan: Name: JOSSE RICE Birthdate: 1980 [id number] The patient is on constant observations due to suicidal gestures on the unit. We have resumed bipolar medications including lithium 300mg PO qam/600mg PO qhs and aripiprazole 5mg PO qhs. He is receiving WAM and clonidine detox protocols for alcohol/benzo and opioid withdrawals respectively. He presents as drug- seeking but also acknowledging the need for substance abuse recovery. We will send referrals to various inpatient rehab facilities, including [facility]. Continue to encourage group participation. Continue inpatient level care. Continued Medication Management: Start Medication Medications: Current Medications Acetaminophen (Tylenol Tab*) 650 mg PO Q4H PRN PRN Reason: for pain; or Temp >101 F Last Admin: 10/14/18 20:50 Dose: 650 mg Al Hydrox/Mg Hydrox/Simethicone (Maalox Plus*) 30 ml PO Q4H PRN PRN Reason: INDIGESTION Aripiprazole (Abilify Tab*) 5 mg PO BEDTIME SHALA Last Admin: 10/14/18 20:48 Dose: 5 mg Clonidine HCl (Catapres Tab*) 0.1 mg PO QID PRN PRN Reason: AGITATION Last Admin: 10/13/18 23:45 Dose: 0.1 mg Hydroxyzine HCl (Atarax Tab*) 50 mg PO Q6H PRN PRN Reason: ANXIETY Last Admin: 10/15/18 02:36 Dose: 50 mg [place] Carbonate ([place] Carbonate Er (Nf)) 300 mg PO QAM [facility] Last Admin: 10/15/18 10:48 Dose: 300 mg [place] Carbonate ([place] Carbonate Er (Nf)) 600 mg PO BEDTIME [facility] Last Admin: 10/14/18 20:47 Dose: 600 mg Lorazepam (Ativan Tab(*)) 0 - 6 mg PO .PER [place] PARAMETERS [facility]; Protocol Last Admin: 10/14/18 22:17 Dose: 2 mg Nicotine (Nicotine Inhaler*) 10 mg INH Q2H PRN PRN Reason: CRAVING Nicotine Polacrilex (Nicotine Gum*) 2 mg PO Q2H PRN PRN Reason: CRAVING Last Admin: 10/14/18 20:51 Dose: 2 mg - Discharge Plan Discharge Plan: Drug/Alcohol Rehab Lab Results - Lab Results Lab Results: 10/15/18 10/15/18 07:17 07:18 Hemoglobin A1c 4.9 Triglycerides 144 Cholesterol 138 LDL Cholesterol 66 HDL Cholesterol 42.9
[2018-10-15] MEDS ORDERED: Nicotine PATCH 21 MG/24 HR* PATCH ONE (12:59)
[2018-10-15] MEDS: Acetaminophen TAB* 325 MG PO PRN (12:59)
[2018-10-15] MEDS: Nicotine PATCH 21 MG/24 HR* PATCH TRANSDERM SCH (14:23)
[2018-10-15] MEDS: LORazepam PO 0-6 for WAM protocol PO SCH ×2 (16:04→21:18)
[2018-10-15] MEDS: Nicotine Patch Removal NOTE PATCH OFF SCH (21:17)
[2018-10-15] MEDS: ARIPiprazole TAB* 5 MG PO SCH (21:17)
[2018-10-15] MEDS: Carisoprodol TAB* 350 MG PO SCH (21:17)
[2018-10-15] MEDS: Nicotine GUM* 2 MG PO PRN (21:21)
[2018-10-16] MEDS: LORazepam PO 0-6 for WAM protocol PO SCH ×4 (00:41→18:38)
[2018-10-16] MEDS: Nicotine PATCH 21 MG/24 HR* PATCH TRANSDERM SCH (08:33)
[2018-10-16] MEDS: Lithium Carbonate ER (NF) 300 MG TAB.ER PO SCH ×2 (08:33→20:11)
[2018-10-16] MEDS: Nicotine GUM* 2 MG PO PRN ×6 (10:06→22:03)
[2018-10-16] MEDS: Acetaminophen TAB* 325 MG PO PRN (13:14)
[2018-10-16] MEDS: hydrOXYzine HCL TAB* 50 MG PO PRN ×2 (13:14→22:03)
--- NOTE | 2018-10-16 18:58 | PN ---
Subjective - Subjective Date of Service: 10/16/18 Service Type: 98350 Hosp care 35 min high complexity Subjective: Mr Lamas reports feeling anxious and is feeling uncomfortable with a reduction of dose of carisoprodol from 4x the FDA maximum dose he had been receiving as an outpatient to the 1x FDA maximum dose he is receiving here. he would like to be able to have a visit with a 3 yo daughter on the unit. He requests also resumption of 5 mg bid Valium that he had been getting from his outpatient prescriber: he wants this in addition to the Ativan he receives on a [place] protocol. He would like to start suboxone. He would like to have the 1:1 stopped that was started after his suicidal gesture on the unit. He agrees to a trial of mirtazapine 15 mg HS against insomnia, reporting past trials of Seroquel had a paradoxical stimulating effect. He reports that he had his last suicidal thoughts 36 hours ago. Objective - Appearance Appearance: Well Developed/Nourished Dysmorphic Features: No Hygiene: Normal Grooming: Disheveled - Behavior Psychomotor Activities: Abnormal-Decreased Exhibits Abnormal Movement: No - Attitude and Relatedness Attitude and Relatedness: Cooperative Eye Contact: Fair - Speech Quality: Unpressured Latencies: Long Quantity: Appropriate - Mood Patient's Decription of Mood: "Anxious" - Affect Observed Affect: Depressed Affect Consistent with: Dysphoria - Thought Process Patient's Thought Process: Coherent, Goal Directed Thought Content: No Passive Wish, No Suicidal Planning, No Homicidal Ideation, No Paranoid Ideation - Sensorium Experiencing Hallucinations: No, Sensorium is Clear - Level of Consciousness Level of Consciousness: Lethargic Orientation: Yes Intact, Yes Orientated to Time, Yes Orientated to Place, Yes Orientated to Person - Impulse Control Impulse Control: Tenuous - Insight and Judgement Insight and Judgement: Poor - Group Participation Particating in Group Activities: Yes - Medication Management Medication Management Adherence: Yes Assessment - Assessment Merits Inpatient Hospitalization: For Immediate Safety, For Stabilization Inpatient DSM-V Dx: F31.4 Clinical Impression: 37 y.o. , white male with a history of bipolar disorder and polysubstance misuse (opioids, cocaine, alcohol and cannabis) arrives brought in by his parents, seeking admission due to depressed mood, hopelessness about his pending felony legal situation, and suicidal thoughts with recent intentional overdose on alcohol and medication. Plan - Plan Treatment Plan: Name: BRITTNEY LAMAS Birthdate: 1980 [id number] The patient is on constant observations due to suicidal gestures on the unit. We have resumed bipolar medications including lithium 300mg PO qam/600mg PO qhs and aripiprazole 5mg PO qhs. He is receiving WAM and clonidine detox protocols for alcohol/benzo and opioid withdrawals respectively. He presents as drug- seeking but also acknowledging the need for substance abuse recovery. We will send referrals to various inpatient rehab facilities, including [facility]. Continue to encourage group participation. Continue inpatient level care. On Thursday evening, added mirtazapine 15 mg HS for insomnia. Did not add back Valium nor Soma dosing exceeding FDA maximum dosing. Will consider with treatment team in the morning allowing visit from 3 year-old daughter on the unit and lifting of 1:1 observation. Medications: Current Medications Acetaminophen (Tylenol Tab*) 650 mg PO Q4H PRN PRN Reason: for pain; or Temp >101 F Last Admin: 10/16/18 13:14 Dose: 650 mg Al Hydrox/Mg Hydrox/Simethicone (Maalox Plus*) 30 ml PO Q4H PRN PRN Reason: INDIGESTION Aripiprazole (Abilify Tab*) 5 mg PO BEDTIME SHALA Last Admin: 10/15/18 21:17 Dose: 5 mg Carisoprodol (Soma Tab*) 350 mg PO BEDTIME SHALA Last Admin: 10/15/18 21:17 Dose: 350 mg Clonidine HCl (Catapres Tab*) 0.1 mg PO QID PRN PRN Reason: AGITATION Last Admin: 10/13/18 23:45 Dose: 0.1 mg Hydroxyzine HCl (Atarax Tab*) 50 mg PO Q6H PRN PRN Reason: ANXIETY Last Admin: 10/16/18 13:14 Dose: 50 mg [place] Carbonate ([place] Carbonate Er (Nf)) 300 mg PO QAM [facility] Last Admin: 10/16/18 08:33 Dose: 300 mg [place] Carbonate ([place] Carbonate Er (Nf)) 600 mg PO BEDTIME SHALA Last Admin: 10/15/18 21:17 Dose: 600 mg Lorazepam (Ativan Tab(*)) 0 - 6 mg PO .PER WAM PARAMETERS [facility]; Protocol Last Admin: 10/16/18 18:38 Dose: 2 mg Mirtazapine (Remeron Tab*) 15 mg PO BEDTIME PRN PRN Reason: SLEEP Nicotine (Nicotine Inhaler*) 10 mg INH Q2H PRN PRN Reason: CRAVING Nicotine (Nicotine Patch 21 Mg/24 Hr*) 1 patch TRANSDERM DAILY [facility] Last Admin: 10/16/18 08:33 Dose: 1 patch Nicotine Polacrilex (Nicotine Gum*) 2 mg PO Q2H PRN PRN Reason: CRAVING Last Admin: 10/16/18 17:43 Dose: 2 mg Pharmacy Profile Note (Nicotine Patch Removal Note*) 1 note PATCH OFF [address] [facility] Last Admin: 10/15/18 21:17 Dose: 1 note - Discharge Plan Discharge Plan: Drug/Alcohol Rehab
[2018-10-16] MEDS: ARIPiprazole TAB* 5 MG PO SCH (20:11)
[2018-10-16] MEDS: Carisoprodol TAB* 350 MG PO SCH (20:11)
[2018-10-16] MEDS: Nicotine Patch Removal NOTE PATCH OFF SCH (22:00)
[2018-10-16] MEDS: Mirtazapine TAB* 15 MG PO PRN (22:03)
[2018-10-16] MEDS: cloNIDine TAB* 0.1 MG PO PRN (22:03)
[2018-10-17] MEDS: Nicotine PATCH 21 MG/24 HR* PATCH TRANSDERM SCH (09:08)
[2018-10-17] MEDS: Acetaminophen TAB* 325 MG PO PRN ×3 (09:09→19:43)
[2018-10-17] MEDS: Lithium Carbonate ER (NF) 300 MG TAB.ER PO SCH ×2 (09:09→21:28)
[2018-10-17] MEDS: Nicotine GUM* 2 MG PO PRN ×5 (10:05→21:33)
--- NOTE | 2018-10-17 12:35 | PN ---
Progress Note - Progress Note Date of Service: 10/17/18 Note: Met with patient after discussing case with weekend treatment team. will continue constant observation. will not order for 3 year-old daughter to visit on unit today. Encouraged use of clonidine against report of body aches, and did not add standing benzodiazepine as patient requested. Deferred to full treatment team decision re on unit visit with 3 year-old and reduction of level of observation, made patient aware of this. Mr Lamas continued to argue for receiving carisoprodol at dose beyond currenlty ordered FDA daily maximum and for valium. Explained to him that goal of treatment overall is to end dependence on addictive substances, and that benzodiazepine dependence risk is elevated in those with active abuse of opioids.
[2018-10-17] MEDS ORDERED: Mouth Piece, Nicotine* 1 EACH CARTRIDGE ONE (12:58)
[2018-10-17] MEDS: Nicotine Inhaler* 10 MG AMP INH PRN ×2 (13:00→16:56)
[2018-10-17] MEDS: cloNIDine TAB* 0.1 MG PO PRN ×3 (13:16→21:31)
[2018-10-17] MEDS: Carisoprodol TAB* 350 MG PO SCH (19:44)
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
[2018-10-17] MEDS: Ibuprofen TAB* 600 MG PO PRN (20:50)
[2018-10-17] MEDS: ARIPiprazole TAB* 5 MG PO SCH (21:28)
[2018-10-17] MEDS: Mirtazapine TAB* 15 MG PO PRN (21:31)
[2018-10-17] MEDS: hydrOXYzine HCL TAB* 50 MG PO PRN (21:31)
[2018-10-17] MEDS: Nicotine Patch Removal NOTE PATCH OFF SCH (21:35)
[2018-10-18] MEDS: Nicotine Inhaler* 10 MG AMP INH PRN ×3 (07:42→18:57)
[2018-10-18] MEDS: Lithium Carbonate ER (NF) 300 MG TAB.ER PO SCH ×2 (07:42→21:45)
[2018-10-18] MEDS: Nicotine PATCH 21 MG/24 HR* PATCH TRANSDERM SCH (07:42)
[2018-10-18] MEDS: Ibuprofen TAB* 600 MG PO PRN ×2 (07:42→18:57)
[2018-10-18] MEDS: Nicotine GUM* 2 MG PO PRN ×5 (07:42→18:57)
[2018-10-18] MEDS: cloNIDine TAB* 0.1 MG PO PRN ×3 (09:42→18:57)
[2018-10-18] MEDS: Acetaminophen TAB* 325 MG PO PRN (11:21)
--- NOTE | 2018-10-18 11:51 | PN ---
Subjective - Subjective Date of Service: 10/18/18 Service Type: 75149 Hosp care 25 min moderate complexity Subjective: Josse continues to be irritable and med-seeking, however, he states that his mood is improving and he has not voiced SI throughout the weekend. Today he demonstrates future oriented thinking, saying "I just want to get into rehab and move forward." I did ask him about a conflict with his mother over the weekend and he denies threatening her, presenting her as controlling and overly involved in his life. I also asked about the conflict with a peer yesterday and he states that he understands the young man is mentally ill and has "let it go." He continues to request further lorazepam and Soma. He is requesting visitation by his 3 y.o. daughter and states the child's grandfather can bring her in for a visit. He is tolerating his medications well and feels "more settled." Objective - Appearance Appearance: Well Developed/Nourished Dysmorphic Features: No Hygiene: Normal Grooming: Well Kept - Behavior Psychomotor Activities: Normal Exhibits Abnormal Movement: No - Attitude and Relatedness Attitude and Relatedness: Cooperative Eye Contact: Fair - Speech Quality: Unpressured Latencies: Normal Quantity: Appropriate - Mood Patient's Decription of Mood: "Fine" - Affect Observed Affect: Fair Affect Consistent with: Euthymia - Thought Process Patient's Thought Process: Coherent Thought Content: No Passive Wish, No Suicidal Planning, No Homicidal Ideation, No Paranoid Ideation - Sensorium Experiencing Hallucinations: No, Sensorium is Clear Type of Hallucinations: Visual: No, Auditory: No, Command: No - Level of Consciousness Level of Consciousness: Alert Orientation: Yes Intact, Yes Orientated to Time, Yes Orientated to Place, Yes Orientated to Person - Impulse Control Impulse Control: Poor - Insight and Judgement Insight and Judgement: Impaired - Group Participation Particating in Group Activities: No - Medication Management Medication Management Adherence: Yes Assessment - Assessment Merits Inpatient Hospitalization: For Immediate Safety, For Stabilization Inpatient DSM-V Dx: F31.4 Clinical Impression: 37 y.o. , white male with a history of bipolar disorder and polysubstance misuse (opioids, cocaine, alcohol and cannabis) arrives brought in by his parents, seeking admission due to depressed mood, hopelessness about his pending felony legal situation, and suicidal thoughts with recent intentional overdose on alcohol and medication. BSU: Problem List - Patient Problems (1) Bipolar affective, depress, severe Current Visit: Yes Status: Acute Code(s): F31.4 - BIPOLAR DISORD, CRNT EPSD DEPRESS, SEV, W/O PSYCH FEATURES SNOMED Code(s): 319388208 Plan - Plan Treatment Plan: Name: JOSSE RICE Birthdate: 1980 [id number] The patient was on constant observations due to suicidal gestures on the unit, however, he has gone 4 days without SI and we will place him back on q15min checks. We have resumed bipolar medications including lithium 300mg PO qam/ 600mg PO qhs and aripiprazole 5mg PO qhs. He is receiving WAM and clonidine detox protocols for alcohol/benzo and opioid withdrawals respectively. Mirtazapine was started over the weekend for sleep. He is being referred to inpatient drug rehab, which I think he would benefit from greatly. Continue to encourage group participation. Continue inpatient level care. Continued Medication Management: Start Medication Medications: Current Medications Acetaminophen (Tylenol Tab*) 650 mg PO Q4H PRN PRN Reason: for pain; or Temp >101 F Last Admin: 10/18/18 11:21 Dose: 650 mg Al Hydrox/Mg Hydrox/Simethicone (Maalox Plus*) 30 ml PO Q4H PRN PRN Reason: INDIGESTION Aripiprazole (Abilify Tab*) 5 mg PO BEDTIME [facility] Last Admin: 10/17/18 21:28 Dose: 5 mg Carisoprodol (Soma Tab*) 350 mg PO BEDTIME [facility] Last Admin: 10/17/18 19:44 Dose: 350 mg Clonidine HCl (Catapres Tab*) 0.1 mg PO QID PRN PRN Reason: AGITATION Last Admin: 10/18/18 09:42 Dose: 0.1 mg Hydroxyzine HCl (Atarax Tab*) 50 mg PO Q6H PRN PRN Reason: ANXIETY Last Admin: 10/17/18 21:31 Dose: 50 mg Ibuprofen (Motrin Tab*) 600 mg PO TID PRN PRN Reason: PAIN Last Admin: 10/18/18 07:42 Dose: 600 mg [place] Carbonate ([place] Carbonate Er (Nf)) 300 mg PO QAM [facility] Last Admin: 10/18/18 07:42 Dose: 300 mg [place] Carbonate ([place] Carbonate Er (Nf)) 600 mg PO BEDTIME [facility] Last Admin: 10/17/18 21:28 Dose: 600 mg Lorazepam (Ativan Tab(*)) 0 - 6 mg PO .PER WAM PARAMETERS [facility]; Protocol Last Admin: 10/16/18 18:38 Dose: 2 mg Mirtazapine (Remeron Tab*) 15 mg PO BEDTIME PRN PRN Reason: SLEEP Last Admin: 10/17/18 21:31 Dose: 15 mg Nicotine (Nicotine Inhaler*) 10 mg INH Q2H PRN PRN Reason: CRAVING Last Admin: 10/18/18 07:42 Dose: 10 mg Nicotine (Nicotine Patch 21 Mg/24 Hr*) 1 patch TRANSDERM DAILY [facility] Last Admin: 10/18/18 07:42 Dose: 1 patch Nicotine Polacrilex (Nicotine Gum*) 2 mg PO Q2H PRN PRN Reason: CRAVING Last Admin: 10/18/18 09:42 Dose: 2 mg Pharmacy Profile Note (Nicotine Patch Removal Note*) 1 note PATCH OFF 2100 [facility] Last Admin: 10/17/18 21:35 Dose: 1 note - Discharge Plan Discharge Plan: Drug/Alcohol Rehab
[2018-10-18] MEDS: Naproxen TAB* 250 MG PO SCH ×2 (12:23→21:46)
[2018-10-18] MEDS: ARIPiprazole TAB* 5 MG PO SCH (21:46)
[2018-10-18] MEDS: Carisoprodol TAB* 350 MG PO SCH (21:46)
[2018-10-18] MEDS: Nicotine Patch Removal NOTE PATCH OFF SCH (21:47)
[2018-10-19] MEDS: Nicotine PATCH 21 MG/24 HR* PATCH TRANSDERM SCH (08:45)
[2018-10-19] MEDS: Lithium Carbonate ER (NF) 300 MG TAB.ER PO SCH ×2 (08:46→20:40)
[2018-10-19] MEDS: Naproxen TAB* 250 MG PO SCH ×2 (08:46→20:41)
[2018-10-19] MEDS: Ibuprofen TAB* 600 MG PO PRN ×2 (08:48→14:44)
[2018-10-19] MEDS: Nicotine GUM* 2 MG PO PRN ×4 (10:04→20:44)
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
[2018-10-19] MEDS: Acetaminophen TAB* 325 MG PO PRN (12:35)
--- NOTE | 2018-10-19 13:12 | PN ---
Subjective - Subjective Date of Service: 10/19/18 Service Type: 19382 Hosp care 25 min moderate complexity Subjective: I met with Josse today, along with unit TOSHIA Xiong, to discuss his progress and strategize his future course of treatment. Josse continues to deny SI and is focussed on getting into an inpatient rehab. "Most of the time I'll tell you that I can get out of a place like this and not use, but not right now!" His mood is improving with time, medication and inpatient milieu care, however, he continues to crave drugs. 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 We have sent out referrals to inpatient rehab options and await a bed offer. Objective - Appearance Appearance: Well Developed/Nourished Dysmorphic Features: No Hygiene: Normal Grooming: Well Kept - Behavior Psychomotor Activities: Normal Exhibits Abnormal Movement: No - Attitude and Relatedness Attitude and Relatedness: Cooperative Eye Contact: Fair - Speech Quality: Unpressured Latencies: Normal Quantity: Appropriate - Mood Patient's Decription of Mood: "Good" - Affect Observed Affect: Good Affect Consistent with: Euthymia - Thought Process Patient's Thought Process: Coherent Thought Content: Yes Passive Wish, Yes Suicidal Planning, Yes Homicidal Ideation, Yes Paranoid Ideation - Sensorium Experiencing Hallucinations: Yes Type of Hallucinations: Visual: Yes, Auditory: Yes, Command: Yes - Level of Consciousness Level of Consciousness: Alert Orientation: Yes Intact, Yes Orientated to Time, Yes Orientated to Place, Yes Orientated to Person - Impulse Control Impulse Control: Tenuous - Insight and Judgement Insight and Judgement: Fair - Group Participation Particating in Group Activities: Yes - Medication Management Medication Management Adherence: Yes Assessment - Assessment Merits Inpatient Hospitalization: For Immediate Safety, For Stabilization Inpatient DSM-V Dx: F31.4 Clinical Impression: 37 y.o. , white male with a history of bipolar disorder and polysubstance misuse (opioids, cocaine, alcohol and cannabis) arrives brought in by his parents, seeking admission due to depressed mood, hopelessness about his pending felony legal situation, and suicidal thoughts with recent intentional overdose on alcohol and medication. BSU: Problem List - Patient Problems (1) Bipolar affective, depress, severe Current Visit: Yes Status: Acute Code(s): F31.4 - BIPOLAR DISORD, CRNT EPSD DEPRESS, SEV, W/O PSYCH FEATURES SNOMED Code(s): 111742453 Plan - Plan Treatment Plan: Name: JOSSE RICE Birthdate: 1980 [id number] The patient continues to deny SI and is now on q15min checks. We have resumed bipolar medications including lithium 300mg PO qam/600mg PO qhs and aripiprazole 5mg PO qhs. His lithium level this AM was subtherapeutic at 0.54 and we'll increase the dose to 600mg PO BID. He is receiving WAM and clonidine detox protocols for alcohol/benzo and opioid withdrawals respectively. Mirtazapine was started over the weekend for sleep. He is being referred to inpatient drug rehab, which I think he would benefit from greatly. Continue inpatient level care. Continued Medication Management: Start Medication Medications: Current Medications Acetaminophen (Tylenol Tab*) 650 mg PO Q4H PRN PRN Reason: for pain; or Temp >101 F Last Admin: 10/19/18 12:35 Dose: 650 mg Al Hydrox/Mg Hydrox/Simethicone (Maalox Plus*) 30 ml PO Q4H PRN PRN Reason: INDIGESTION Aripiprazole (Abilify Tab*) 5 mg PO BEDTIME [facility] Last Admin: 10/18/18 21:46 Dose: 5 mg Carisoprodol (Soma Tab*) 350 mg PO BEDTIME [facility] Last Admin: 10/18/18 21:46 Dose: 350 mg Clonidine HCl (Catapres Tab*) 0.1 mg PO QID PRN PRN Reason: AGITATION Last Admin: 10/18/18 18:57 Dose: 0.1 mg Hydroxyzine HCl (Atarax Tab*) 50 mg PO Q6H PRN PRN Reason: ANXIETY Last Admin: 10/17/18 21:31 Dose: 50 mg Ibuprofen (Motrin Tab*) 600 mg PO TID PRN PRN Reason: PAIN Last Admin: 10/19/18 08:48 Dose: 600 mg [place] Carbonate ([place] Carbonate Er (Nf)) 600 mg PO BID [facility] Mirtazapine (Remeron Tab*) 15 mg PO BEDTIME PRN PRN Reason: SLEEP Last Admin: 10/17/18 21:31 Dose: 15 mg Naproxen (Naprosyn Tab*) 250 mg PO BID [facility] Last Admin: 10/19/18 08:46 Dose: 250 mg Nicotine (Nicotine Inhaler*) 10 mg INH Q2H PRN PRN Reason: CRAVING Last Admin: 10/18/18 18:57 Dose: 10 mg Nicotine (Nicotine Patch 21 Mg/24 Hr*) 1 patch TRANSDERM DAILY [facility] Last Admin: 10/19/18 08:45 Dose: 1 patch Nicotine Polacrilex (Nicotine Gum*) 2 mg PO Q2H PRN PRN Reason: CRAVING Last Admin: 10/19/18 12:36 Dose: 2 mg Pharmacy Profile Note (Nicotine Patch Removal Note*) 1 note PATCH OFF 2100 [facility] Last Admin: 10/18/18 21:47 Dose: 1 note - Discharge Plan Discharge Plan: Drug/Alcohol Rehab Lab Results - Lab Results Lab Results: 10/19/18 08:08 [place] 0.54 L
[2018-10-19] MEDS: cloNIDine TAB* 0.1 MG PO PRN (14:47)
[2018-10-19] MEDS: ARIPiprazole TAB* 5 MG PO SCH (20:40)
[2018-10-19] MEDS: Carisoprodol TAB* 350 MG PO SCH (20:41)
[2018-10-19] MEDS: Nicotine Patch Removal NOTE PATCH OFF SCH (21:20)
[2018-10-19] MEDS: hydrOXYzine HCL TAB* 50 MG PO PRN (21:40)
[2018-10-19] MEDS ORDERED: Ondansetron ODT TAB* 4 MG PO PRN (22:30)
[2018-10-19] MEDS ORDERED: Ondansetron ODT TAB* 4 MG ONE (22:34)
--- NOTE | 2018-10-20 10:35 | PN ---
Subjective - Subjective Date of Service: 10/20/18 Service Type: [id number] Hosp care 15 min low complexity Subjective: Josse has a stomach bug and spent the night with significant nausea and vomiting. He regrets taking Zofran because, as he states it "It just kept all that yuck just gurgling inside me so that I couldn't get it out." He is fatigued and excused from group expectations for the remainder of today. My understanding is that he was accepted by [facility] with a bed date of October 26, which is next Thursday. I received a message from his senior officer, Le Dupont ([phone]) that she got approval from the software sales consultant to remove his ankle bracelet and allow [place] out of [place] for treatment, however, the electronic monitoring device must be refastened to his ankle upon his return to the community after rehab. Josse continues to deny SI and has been appropriate on the unit. Objective - Appearance Appearance: Well Developed/Nourished Dysmorphic Features: No Hygiene: Normal Grooming: Well Kept - Behavior Psychomotor Activities: Normal Exhibits Abnormal Movement: No - Attitude and Relatedness Attitude and Relatedness: Cooperative Eye Contact: Good - Speech Quality: Unpressured Latencies: Normal Quantity: Appropriate - Mood Patient's Decription of Mood: "Okay" - Affect Observed Affect: Fair Affect Consistent with: Euthymia - Thought Process Patient's Thought Process: Coherent Thought Content: No Passive Wish, No Suicidal Planning, No Homicidal Ideation, No Paranoid Ideation - Sensorium Experiencing Hallucinations: No, Sensorium is Clear Type of Hallucinations: Visual: No, Auditory: No, Command: No - Level of Consciousness Level of Consciousness: Alert Orientation: Yes Intact, Yes Orientated to Time, Yes Orientated to Place, Yes Orientated to Person - Impulse Control Impulse Control: Tenuous - Insight and Judgement Insight and Judgement: Fair - Group Participation Particating in Group Activities: Yes - Medication Management Medication Management Adherence: Yes Assessment - Assessment Merits Inpatient Hospitalization: For Immediate Safety, For Stabilization Inpatient DSM-V Dx: F31.4 Clinical Impression: 37 y.o. , white male with a history of bipolar disorder and polysubstance misuse (opioids, cocaine, alcohol and cannabis) arrives brought in by his parents, seeking admission due to depressed mood, hopelessness about his pending felony legal situation, and suicidal thoughts with recent intentional overdose on alcohol and medication. BSU: Problem List - Patient Problems (1) Bipolar affective, depress, severe Current Visit: Yes Status: Acute Code(s): F31.4 - BIPOLAR DISORD, CRNT EPSD DEPRESS, SEV, W/O PSYCH FEATURES SNOMED Code(s): 521996960 Plan - Plan Treatment Plan: Name: JOSSE RICE Birthdate: 1980 [id number] The patient continues to deny SI and is now on q15min checks. We will decrease observations status to q30min checks to reduce unit restrictions for him. Bipolar medications, including lithium 600mg PO BID and aripiprazole 5mg PO qhs , have been resumed. There is no longer evidence of opioid, alcohol or benzodiazepine withdrawal. Mirtazapine was started over the weekend for sleep. He is being referred to inpatient drug rehab, which I think he would benefit from greatly. Continue inpatient level care. Continued Medication Management: Start Medication Medications: Current Medications Acetaminophen (Tylenol Tab*) 650 mg PO Q4H PRN PRN Reason: for pain; or Temp >101 F Last Admin: 10/19/18 12:35 Dose: 650 mg Al Hydrox/Mg Hydrox/Simethicone (Maalox Plus*) 30 ml PO Q4H PRN PRN Reason: INDIGESTION Aripiprazole (Abilify Tab*) 5 mg PO BEDTIME [facility] Last Admin: 10/19/18 20:40 Dose: 5 mg Carisoprodol (Soma Tab*) 350 mg PO BEDTIME [facility] Last Admin: 10/19/18 20:41 Dose: 350 mg Clonidine HCl (Catapres Tab*) 0.1 mg PO QID PRN PRN Reason: AGITATION Last Admin: 10/19/18 14:47 Dose: 0.1 mg Hydroxyzine HCl (Atarax Tab*) 50 mg PO Q6H PRN PRN Reason: ANXIETY Last Admin: 10/19/18 21:40 Dose: 50 mg Ibuprofen (Motrin Tab*) 600 mg PO TID PRN PRN Reason: PAIN Last Admin: 10/19/18 14:44 Dose: 600 mg [place] Carbonate ([place] Carbonate Er (Nf)) 600 mg PO BID [facility] Last Admin: 10/19/18 20:40 Dose: 600 mg Mirtazapine (Remeron Tab*) 15 mg PO BEDTIME PRN PRN Reason: SLEEP Last Admin: 10/17/18 21:31 Dose: 15 mg Naproxen (Naprosyn Tab*) 250 mg PO BID [facility] Last Admin: 10/19/18 20:41 Dose: 250 mg Nicotine (Nicotine Inhaler*) 10 mg INH Q2H PRN PRN Reason: CRAVING Last Admin: 10/18/18 18:57 Dose: 10 mg Nicotine (Nicotine Patch 21 Mg/24 Hr*) 1 patch TRANSDERM DAILY [facility] Last Admin: 10/19/18 08:45 Dose: 1 patch Nicotine Polacrilex (Nicotine Gum*) 2 mg PO Q2H PRN PRN Reason: CRAVING Last Admin: 10/19/18 20:44 Dose: 2 mg Ondansetron HCl (Zofran Odt Tab*) 4 mg PO Q4H PRN PRN Reason: NAUSEA/VOMITING Pharmacy Profile Note (Nicotine Patch Removal Note*) 1 note PATCH OFF 2100 [facility] Last Admin: 10/19/18 21:20 Dose: 1 note - Discharge Plan Discharge Plan: Drug/Alcohol Rehab
[2018-10-20] MEDS: Naproxen TAB* 250 MG PO SCH ×2 (10:49→20:07)
[2018-10-20] MEDS: Lithium Carbonate ER (NF) 300 MG TAB.ER PO SCH ×2 (10:49→20:07)
[2018-10-20] MEDS: Nicotine PATCH 21 MG/24 HR* PATCH TRANSDERM SCH (10:53)
[2018-10-20] MEDS: Ibuprofen TAB* 600 MG PO PRN (14:50)
--- NOTE | 2018-10-20 16:00 | PN ---
MHU: Group Therapy Note - Service Type Service Type: [id number] Group Psychotherapy - Medication Education Group: Patient attended group and presented with flat affect that did not vary with discussion. Although responsive to direct prompts to respond to questions, patient did not engage in spontaneous conversation.
[2018-10-20] MEDS: Acetaminophen TAB* 325 MG PO PRN (16:59)
[2018-10-20] MEDS: cloNIDine TAB* 0.1 MG PO PRN (18:00)
[2018-10-20] MEDS: ARIPiprazole TAB* 5 MG PO SCH (20:08)
[2018-10-20] MEDS: Carisoprodol TAB* 350 MG PO SCH (20:08)
[2018-10-20] MEDS: Mirtazapine TAB* 15 MG PO PRN (20:09)
[2018-10-20] MEDS: Nicotine Patch Removal NOTE PATCH OFF SCH (20:10)
[2018-10-21] MEDS: Naproxen TAB* 250 MG PO SCH ×2 (10:12→21:57)
[2018-10-21] MEDS: Lithium Carbonate ER (NF) 300 MG TAB.ER PO SCH ×2 (10:12→21:56)
[2018-10-21] MEDS: Nicotine GUM* 2 MG PO PRN ×3 (10:13→17:28)
[2018-10-21] MEDS: Nicotine PATCH 21 MG/24 HR* PATCH TRANSDERM SCH (10:13)
--- NOTE | 2018-10-21 13:13 | PN ---
MHU: Group Therapy Note - Service Type Service Type: [id number] Group Psychotherapy - Cognitive Behavioral Group Therapy ( CBT):Patient was attentive and participatory in CBT programming this morning, and remained in good behavioral control. Patient expressed positive insights regarding relevant treatment interventions and goals.
[2018-10-21] MEDS: Ibuprofen TAB* 600 MG PO PRN ×2 (13:39→17:31)
[2018-10-21] MEDS: cloNIDine TAB* 0.1 MG PO PRN ×2 (15:11→21:58)
[2018-10-21] MEDS: Acetaminophen TAB* 325 MG PO PRN (15:11)
[2018-10-21] MEDS: ARIPiprazole TAB* 5 MG PO SCH (21:57)
[2018-10-21] MEDS: Carisoprodol TAB* 350 MG PO SCH (21:57)
[2018-10-21] MEDS: Mirtazapine TAB* 15 MG PO PRN (21:58)
[2018-10-21] MEDS: Nicotine Patch Removal NOTE PATCH OFF SCH (22:00)
[2018-10-22] MEDS: Naproxen TAB* 250 MG PO SCH ×2 (08:52→20:24)
[2018-10-22] MEDS: Lithium Carbonate ER (NF) 300 MG TAB.ER PO SCH ×2 (08:52→20:24)
[2018-10-22] MEDS: Nicotine PATCH 21 MG/24 HR* PATCH TRANSDERM SCH (08:52)
[2018-10-22] MEDS: Ibuprofen TAB* 600 MG PO PRN (08:52)
[2018-10-22] MEDS: Nicotine GUM* 2 MG PO PRN ×2 (08:53→18:07)
--- NOTE | 2018-10-22 14:27 | PN ---
Subjective - Subjective Date of Service: 10/22/18 Service Type: 87040 Hosp care 15 min low complexity Subjective: Josse has been cooperative and interactive on the unit, going to groups and taking medications as prescribed. He is requesting suboxone therapy, however, we have not yet gotten confirmation from [facility] that they would allow him to have this while in their rehab, where he is scheduled to be transferred to next Thursday (10/26). The patient admits that he would likely relapse on drugs and become suicidal again if discharged over the weekend while awaiting his bed at [place]. He denies active SI on the unit though. Objective - Appearance Appearance: Well Developed/Nourished Dysmorphic Features: No Hygiene: Normal Grooming: Well Kept - Behavior Psychomotor Activities: Normal Exhibits Abnormal Movement: No - Attitude and Relatedness Attitude and Relatedness: Cooperative Eye Contact: Fair - Speech Quality: Unpressured Latencies: Normal Quantity: Appropriate - Mood Patient's Decription of Mood: "Okay" - Affect Observed Affect: Fair Affect Consistent with: Euthymia - Thought Process Patient's Thought Process: Coherent Thought Content: No Passive Wish, No Suicidal Planning, No Homicidal Ideation, No Paranoid Ideation - Sensorium Experiencing Hallucinations: No, Sensorium is Clear Type of Hallucinations: Visual: No, Auditory: No, Command: No - Level of Consciousness Level of Consciousness: Alert Orientation: Yes Intact, Yes Orientated to Time, Yes Orientated to Place, Yes Orientated to Person - Impulse Control Impulse Control: Tenuous - Insight and Judgement Insight and Judgement: Fair - Group Participation Particating in Group Activities: Yes - Medication Management Medication Management Adherence: Yes Assessment - Assessment Merits Inpatient Hospitalization: For Immediate Safety, For Stabilization Inpatient DSM-V Dx: F31.4 Clinical Impression: 37 y.o. , white male with a history of bipolar disorder and polysubstance misuse (opioids, cocaine, alcohol and cannabis) arrives brought in by his parents, seeking admission due to depressed mood, hopelessness about his pending felony legal situation, and suicidal thoughts with recent intentional overdose on alcohol and medication. BSU: Problem List - Patient Problems (1) Bipolar affective, depress, severe Current Visit: Yes Status: Acute Code(s): F31.4 - BIPOLAR DISORD, CRNT EPSD DEPRESS, SEV, W/O PSYCH FEATURES SNOMED Code(s): 964229565 Plan - Plan Treatment Plan: Name: JOSSE RICE Birthdate: 1980 [id number] The patient has been resumed on lithium 600mg PO BID and aripiprazole 5mg PO qhs. Mirtazapine was started over the weekend for sleep. The patient has been accepted for a dual-diagnosis bed at the [facility] in [place], [place] and we are making arrangements with his family and the court to have him transferred there on October 26. Continue to treat on the unit to reduce risk of imminent relapse and to keep his alleged victim safe as his ankle monitoring device has been removed in advance of rehab. Continued Medication Management: Start Medication Medications: Current Medications Acetaminophen (Tylenol Tab*) 650 mg PO Q4H PRN PRN Reason: for pain; or Temp >101 F Last Admin: 10/21/18 15:11 Dose: 650 mg Al Hydrox/Mg Hydrox/Simethicone (Maalox Plus*) 30 ml PO Q4H PRN PRN Reason: INDIGESTION Aripiprazole (Abilify Tab*) 5 mg PO BEDTIME SHALA Last Admin: 10/21/18 21:57 Dose: 5 mg Carisoprodol (Soma Tab*) 350 mg PO BEDTIME SHALA Last Admin: 10/21/18 21:57 Dose: 350 mg Clonidine HCl (Catapres Tab*) 0.1 mg PO QID PRN PRN Reason: AGITATION Last Admin: 10/21/18 21:58 Dose: 0.1 mg Hydroxyzine HCl (Atarax Tab*) 50 mg PO Q6H PRN PRN Reason: ANXIETY Last Admin: 10/19/18 21:40 Dose: 50 mg Ibuprofen (Motrin Tab*) 600 mg PO TID PRN PRN Reason: PAIN Last Admin: 10/22/18 08:52 Dose: 600 mg [place] Carbonate ([place] Carbonate Er (Nf)) 600 mg PO BID SHALA Last Admin: 10/22/18 08:52 Dose: 600 mg Mirtazapine (Remeron Tab*) 15 mg PO BEDTIME PRN PRN Reason: SLEEP Last Admin: 10/21/18 21:58 Dose: 15 mg Naproxen (Naprosyn Tab*) 250 mg PO BID SHALA Last Admin: 10/22/18 08:52 Dose: 250 mg Nicotine (Nicotine Inhaler*) 10 mg INH Q2H PRN PRN Reason: CRAVING Last Admin: 10/18/18 18:57 Dose: 10 mg Nicotine (Nicotine Patch 21 Mg/24 Hr*) 1 patch TRANSDERM DAILY [facility] Last Admin: 10/22/18 08:52 Dose: 1 patch Nicotine Polacrilex (Nicotine Gum*) 2 mg PO Q2H PRN PRN Reason: CRAVING Last Admin: 10/22/18 08:53 Dose: 2 mg Ondansetron HCl (Zofran Odt Tab*) 4 mg PO Q4H PRN PRN Reason: NAUSEA/VOMITING Last Admin: 10/20/18 14:51 Dose: 4 mg Pharmacy Profile Note (Nicotine Patch Removal Note*) 1 note PATCH OFF 2099 [facility] Last Admin: 10/21/18 22:00 Dose: 1 note - Discharge Plan Discharge Plan: Drug/Alcohol Rehab
[2018-10-22] MEDS: Acetaminophen TAB* 325 MG PO PRN (18:06)
[2018-10-22] MEDS: Carisoprodol TAB* 350 MG PO SCH (20:24)
[2018-10-22] MEDS: ARIPiprazole TAB* 5 MG PO SCH (20:24)
[2018-10-22] MEDS: Mirtazapine TAB* 15 MG PO PRN (22:05)
[2018-10-22] MEDS: Nicotine Patch Removal NOTE PATCH OFF SCH (22:51)
[2018-10-23] MEDS: Naproxen TAB* 250 MG PO SCH ×2 (10:43→20:44)
[2018-10-23] MEDS: Lithium Carbonate ER (NF) 300 MG TAB.ER PO SCH ×2 (10:43→20:44)
[2018-10-23] MEDS: Nicotine PATCH 21 MG/24 HR* PATCH TRANSDERM SCH (10:44)
[2018-10-23] MEDS: Nicotine GUM* 2 MG PO PRN ×4 (10:45→19:16)
[2018-10-23] MEDS: Ibuprofen TAB* 600 MG PO PRN (13:01)
[2018-10-23] MEDS: Acetaminophen TAB* 325 MG PO PRN (15:54)
[2018-10-23] MEDS: ARIPiprazole TAB* 5 MG PO SCH (20:44)
[2018-10-23] MEDS: Carisoprodol TAB* 350 MG PO SCH (20:44)
[2018-10-23] MEDS: Nicotine Patch Removal NOTE PATCH OFF SCH (22:40)
[2018-10-23] MEDS: Mirtazapine TAB* 15 MG PO PRN (22:40)
[2018-10-24] MEDS: Ibuprofen TAB* 600 MG PO PRN (10:17)
[2018-10-24] MEDS: Lithium Carbonate ER (NF) 300 MG TAB.ER PO SCH ×2 (10:18→21:13)
[2018-10-24] MEDS: Naproxen TAB* 250 MG PO SCH ×2 (10:18→21:12)
[2018-10-24] MEDS: Nicotine PATCH 21 MG/24 HR* PATCH TRANSDERM SCH (10:19)
[2018-10-24] MEDS: Nicotine GUM* 2 MG PO PRN ×3 (11:26→21:16)
[2018-10-24] MEDS: Acetaminophen TAB* 325 MG PO PRN (15:14)
[2018-10-24] MEDS: ARIPiprazole TAB* 5 MG PO SCH (21:12)
[2018-10-24] MEDS: Carisoprodol TAB* 350 MG PO SCH (21:13)
[2018-10-24] MEDS: Mirtazapine TAB* 15 MG PO PRN (23:10)
[2018-10-24] MEDS: Nicotine Patch Removal NOTE PATCH OFF SCH (23:10)
[2018-10-25] MEDS: Naproxen TAB* 250 MG PO SCH ×2 (09:53→20:14)
[2018-10-25] MEDS: Lithium Carbonate ER (NF) 300 MG TAB.ER PO SCH ×2 (09:53→20:14)
[2018-10-25] MEDS: Nicotine PATCH 21 MG/24 HR* PATCH TRANSDERM SCH (10:14)
--- NOTE | 2018-10-25 11:50 | PN ---
MHU: Group Therapy Note - Service Type Service Type: 11057 Group Psychotherapy - Cognitive Behavioral Group Therapy ( CBT):Patient was attentive and participatory in CBT programming this morning, and remained in good behavioral control. Patient expressed positive insights regarding relevant treatment interventions and goals.
[2018-10-25] MEDS: Nicotine GUM* 2 MG PO PRN ×3 (12:15→20:14)
--- NOTE | 2018-10-25 12:30 | PN ---
Subjective - Subjective Date of Service: 10/25/18 Service Type: 97101 Hosp care 15 min low complexity Subjective: Josse continues to deny SI and is forward looking and eager to pursue and complete inpatient drug treatment at the [facility]. We were able to confirm independently that both Panda and Dr. Gillespie at [facility] were willing to continue buprenorphine treatment. We will therefor start a trial of this. We are working with Josse's mother to have her provide transportation to [place] tomorrow. Josse expresses understanding that his ankle bracelet monitoring device will need to be reattached once he's back in the [facility] after rehab. He's been adherent with milieu expectations over the weekend. Objective - Appearance Appearance: Well Developed/Nourished Dysmorphic Features: No Hygiene: Normal Grooming: Well Kept - Behavior Psychomotor Activities: Normal Exhibits Abnormal Movement: No - Attitude and Relatedness Attitude and Relatedness: Cooperative Eye Contact: Good - Speech Quality: Unpressured Latencies: Normal Quantity: Appropriate - Mood Patient's Decription of Mood: "Good" - Affect Observed Affect: Good Affect Consistent with: Euthymia - Thought Process Patient's Thought Process: Coherent Thought Content: No Passive Wish, No Suicidal Planning, No Homicidal Ideation, No Paranoid Ideation - Sensorium Experiencing Hallucinations: No, Sensorium is Clear Type of Hallucinations: Visual: No, Auditory: No, Command: No - Level of Consciousness Level of Consciousness: Alert Orientation: Yes Intact, Yes Orientated to Time, Yes Orientated to Place, Yes Orientated to Person - Impulse Control Impulse Control: Intact - Insight and Judgement Insight and Judgement: Good - Group Participation Particating in Group Activities: Yes - Medication Management Medication Management Adherence: Yes Assessment - Assessment Merits Inpatient Hospitalization: Consolidate Improvements, Pending Safe DC Plan Inpatient DSM-V Dx: F31.4 Clinical Impression: 37 y.o. , white male with a history of bipolar disorder and polysubstance misuse (opioids, cocaine, alcohol and cannabis) arrives brought in by his parents, seeking admission due to depressed mood, hopelessness about his pending felony legal situation, and suicidal thoughts with recent intentional overdose on alcohol and medication. BSU: Problem List - Patient Problems (1) Bipolar affective, depress, severe Current Visit: Yes Status: Acute Code(s): F31.4 - BIPOLAR DISORD, CRNT EPSD DEPRESS, SEV, W/O PSYCH FEATURES SNOMED Code(s): 805105659 Plan - Plan Treatment Plan: Name: JOSSE RICE Birthdate: 1980 [id number] The patient has been resumed on lithium 600mg PO BID and aripiprazole 5mg PO qhs. Mirtazapine was started over the weekend for sleep. The patient has been accepted for a dual-diagnosis bed at the [facility] in [place], [place] and we are making arrangements with his family and the court to have him transferred there tomorrow, October 26. Continued Medication Management: Start Medication Medications: Current Medications Acetaminophen (Tylenol Tab*) 650 mg PO Q4H PRN PRN Reason: for pain; or Temp >101 F Last Admin: 10/24/18 15:14 Dose: 650 mg Al Hydrox/Mg Hydrox/Simethicone (Maalox Plus*) 30 ml PO Q4H PRN PRN Reason: INDIGESTION Aripiprazole (Abilify Tab*) 5 mg PO BEDTIME SHALA Last Admin: 10/24/18 21:12 Dose: 5 mg Buprenorphine/Naloxone (Suboxone 8 Mg-2 Mg Sl Film) 1 each SL FILM DAILY [facility] Clonidine HCl (Catapres Tab*) 0.1 mg PO QID PRN PRN Reason: AGITATION Last Admin: 10/21/18 21:58 Dose: 0.1 mg Hydroxyzine HCl (Atarax Tab*) 50 mg PO Q6H PRN PRN Reason: ANXIETY Last Admin: 10/19/18 21:40 Dose: 50 mg Ibuprofen (Motrin Tab*) 600 mg PO TID PRN PRN Reason: PAIN Last Admin: 10/24/18 10:17 Dose: 600 mg [place] Carbonate ([place] Carbonate Er (Nf)) 600 mg PO BID SHALA Last Admin: 10/25/18 09:53 Dose: 600 mg Mirtazapine (Remeron Tab*) 15 mg PO BEDTIME PRN PRN Reason: SLEEP Last Admin: 10/24/18 23:10 Dose: 15 mg Naproxen (Naprosyn Tab*) 250 mg PO BID SHALA Last Admin: 10/25/18 09:53 Dose: 250 mg Nicotine (Nicotine Inhaler*) 10 mg INH Q2H PRN PRN Reason: CRAVING Last Admin: 10/18/18 18:57 Dose: 10 mg Nicotine (Nicotine Patch 21 Mg/24 Hr*) 1 patch TRANSDERM DAILY [facility] Last Admin: 10/25/18 10:14 Dose: 1 patch Nicotine Polacrilex (Nicotine Gum*) 2 mg PO Q2H PRN PRN Reason: CRAVING Last Admin: 10/25/18 12:15 Dose: 2 mg Ondansetron HCl (Zofran Odt Tab*) 4 mg PO Q4H PRN PRN Reason: NAUSEA/VOMITING Last Admin: 10/20/18 14:51 Dose: 4 mg Pharmacy Profile Note (Nicotine Patch Removal Note*) 1 note PATCH OFF 2100 [facility] Last Admin: 10/24/18 23:10 Dose: 1 note - Discharge Plan Discharge Plan: Drug/Alcohol Rehab
[2018-10-25] MEDS: Buprenorp/Nalox 8-2 MG FILM 1 EACH SL FILM SCH (12:42)
[2018-10-25] MEDS: ARIPiprazole TAB* 5 MG PO SCH (20:14)
[2018-10-25] MEDS: Mirtazapine TAB* 15 MG PO PRN (22:46)
[2018-10-25] MEDS: Nicotine Patch Removal NOTE PATCH OFF SCH (22:47)
[2018-10-26 08:12] VITALS: BP 125/71
[2018-10-26] MEDS: Lithium Carbonate ER (NF) 300 MG TAB.ER PO SCH (08:27)
[2018-10-26] MEDS: Naproxen TAB* 250 MG PO SCH (08:27)
[2018-10-26] MEDS: Buprenorp/Nalox 8-2 MG FILM 1 EACH SL FILM SCH (08:28)
[2018-10-26] MEDS: Nicotine PATCH 21 MG/24 HR* PATCH TRANSDERM SCH (08:30)
[2018-10-26] MEDS: Nicotine GUM* 2 MG PO PRN (08:31)
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
== END 2018-10-26 11:00 | DRG 753 ==
LOC: ED 16:46 → BSU 16:58
PROVIDERS: ADMIT Psychiatry & Neurology Psychiatry; ATTEND Psychiatry & Neurology Psychiatry
PROC: HZ2ZZZZ Detoxification Services for Substance Abuse Treatment (ICD-10-PCS; principal; 2018-10-14)
DX: F31.4 Bipolar disorder, current episode depressed, severe, without psychotic features (principal); R45.851 Suicidal ideations; F11.10 Opioid abuse, uncomplicated; F10.10 Alcohol abuse, uncomplicated; F14.10 Cocaine abuse, uncomplicated; F12.10 Cannabis abuse, uncomplicated; F17.210 Nicotine dependence, cigarettes, uncomplicated; Z81.8 Family history of other mental and behavioral disorders; Z81.1 Family history of alcohol abuse and dependence
CPT/HCPCS: 36415; 80061; 80178; 83036; 90834; 90853; 99222; 99231; 99232; 99233; 99238; 99284; A9270-GY

== ENCOUNTER 2019-02-25 13:40 | Emergency (ER) | payer OTHER ==
--- NOTE | 2019-02-25 14:22 | ED ---
Psychiatric Complaint - HPI Summary HPI Summary: 38-year-old presents with suicidal ideation for past 2 weeks. He states that he has started to drink more to deal with the increase depression. He states has never drank this much in his life. He states that he has been increasing his alcohol consumption to cope with the depression. He states he has gone through withdrawal before and has had seizures in the past but at that time also was going through opioid and cocaine withdrawal. He states his last drink was last night. He is currently seen by a therapist. He states he just feels anxious than normal. Admits to mild nausea. No vomiting. No headache. No hallucinations. - History Of Current Complaint Chief Complaint: EDMentalHealth Time Seen by Provider: 02/25/19 14:01 - Allergies/Home Medications Allergies/Adverse Reactions: Allergies Allergy/AdvReac Type Severity Reaction Status Date / Time No Known Allergies Allergy Verified 02/25/19 13:48 Home Medications: Home Medications Topiramate TAB(*) [Topamax 100 mg tab] 100 mg PO DAILY 02/25/19 [History Confirmed 02/25/19] PMH/Surg Hx/FS Hx/Imm Hx Endocrine/Hematology History: Denies: Hx Diabetes Musculoskeletal History: Reports: Other Musculoskeletal History - broke right hand last year Sensory History: Denies: Hx Contacts or Glasses, Hx Hearing Aid Opthamlomology History: Denies: Hx Contacts or Glasses Neurological History: Denies: Hx Dementia, Hx Developmental Delay, Hx Headaches, Hx Migraine, Hx Nerve Disease, Hx Seizures, Hx Spinal Cord Injury, Hx Transient Ischemic Attacks (TIA), Other Neuro Impairments/Disorders Psychiatric History: Reports: Hx Anxiety, Hx Attention Deficit Hyperactivity Disorder, Hx Depression, Hx Inpatient Treatment, Hx Community Mental Health Tx, Hx Bipolar Disorder, Hx Suicide Attempt, Hx Substance Abuse - alcohol and cocaine Denies: Hx Eating Disorder, Hx of Violent Episodes Against Others Infectious Disease History: No Infectious Disease History: Reports: Hx Hepatitis - Hep C, History Other Infectious Disease - varicella as a kid Denies: Hx Clostridium Difficile, Hx Human Immunodeficiency Virus (HIV), Hx of Known/Suspected MRSA, Hx Shingles, Hx Tuberculosis, Hx Known/Suspected VRE, Hx Known/Suspected VRSA, Traveled Outside the [place] in Last 30 Days - Family History Known Family History: Positive: Diabetes Negative: Cardiac Disease, Hypertension - Social History Alcohol Use: Pt states alcohol amount depends on drug use Hx Substance Use: Yes Substance Use Type: Reports: Cocaine, Heroin, Marijuana, Other Substance Use Comment - Amount & Last Used: LSD Hx Tobacco Use: Yes Smoking Status (MU): Current Every Day Smoker Type: Cigarettes Amount Used/How Often: 1 ppd Length of Time of Smoking/Using Tobacco: Began at 27 years of age Have You Smoked in the Last Year: Yes Review of Systems Negative: Fever Negative: Chest Pain Negative: Shortness Of Breath Positive: Depressed All Other Systems Reviewed And Are Negative: Yes Physical Exam Triage Information Reviewed: Yes Vital Signs On Initial Exam: Initial Vitals Temp Pulse Resp BP Pulse Ox 97.7 F 69 15 117/75 97 02/25/19 13:46 02/25/19 13:46 02/25/19 13:46 02/25/19 13:46 02/25/19 13:46 Vital Signs Reviewed: Yes Appearance: Positive: Well-Appearing Skin: Positive: Warm, Dry Head/Face: Positive: Normal Head/Face Inspection Eyes: Positive: Normal, Conjunctiva Clear ENT: Positive: Pharynx normal Respiratory/Lung Sounds: Positive: Clear to Auscultation, Breath Sounds Present Cardiovascular: Positive: Normal, RRR Abdomen Description: Positive: Nontender, Soft Bowel Sounds: Positive: Present Musculoskeletal: Positive: Normal Neurological: Positive: Normal Psychiatric: Positive: Depressed Diagnostics - Vital Signs Vital Signs Temp Pulse Resp BP Pulse Ox 02/25/19 13:46 97.7 F 69 15 117/75 97 - Laboratory Result Diagrams: 02/25/19 14:18 02/25/19 14:18 Lab Statement: Any lab studies that have been ordered have been reviewed, and results considered in the medical decision making process. Re-Evaluation - Re-Evaluation First Eval Re-Evaluation Time: 16:32 Comment: patient states anxiety has gotten worst along with nausea but no vomiting or increase tremor. patient would like something for anxiety so will dose of ativan which will help with alcohol withdrawal Second Eval Re-Evaluation Time: 20:58 Comment: spoke with dr tarango who states that wants to hold patient and does not want patient admitted at this time. Third Eval Re-Evaluation Time: 21:44 Comment: currently sleeping Course/Dx - Course Course Of Treatment: 38-year-old presents with suicidal ideation for past 2 weeks. He states that he has started to drink more to deal with the increase depression. He states has never drank this much in his life. He states that he has been increasing his alcohol consumption to cope with the depression. He states he has gone through withdrawal before and has had seizures in the past but at that time also was going through opioid and cocaine withdrawal. He states his last drink was last night. He is currently seen by a therapist. He states he just feels anxious than normal. Admits to mild nausea. No vomiting. No headache. No hallucinations. On exam no tremor noted but can be felt. CIWA-Ar 8 currently. poor eye contact. alcohol zero. patient was evaulated by [facility] and will be held till tomorrow. spoke with dr tarango about patient who says will see tomorrow. patient signed out to dr hough pending re- evaulation by dr tarango in morning. - Differential Dx/Clinical Impression Differential Diagnosis/HQI/PQRI: Positive: Alcohol Intoxication, Anxiety, Depression, Suicidal Ideation Provider Diagnosis: Alcohol withdrawal, Depression Discharge - Sign-Out/Discharge Documenting (check all that apply): Sign-Out Patient Signing out patient TO: Jordan Hough - Discharge Plan Referrals: No Primary Care Phys,NOPCP [Primary Care Provider] -
[2019-02-25 14:27] LABS: ABS Lymphocytes 1.1 10^3/ul (1.0-4.8); ABS Monocytes 0.3 10^3/ul (0-0.8); ABS Neutrophils 6.3 10^3/ul (1.5-7.7); Eosinophil % 0.2 %; Hematocrit 44 % (42-52); Hemoglobin 14.6 g/dL (14.0-18.0); Lymphocyte % 13.9 %; Mean Corpuscular HGB Conc 33 g/dL (31-36); Mean Corpuscular Hemoglobin 31 pg (27-31); Mean Corpuscular Volume 94 fL (80-94); Platelet Count 246 10^3/uL (150-450); Red Blood Count 4.68 10^6 /uL (4.18-5.48); Red Cell Distribution Width 14 % (10-15); White Blood Count 7.7 10^3/uL (3.5-10.8)
[2019-02-25 14:33] LABS: Urine Appearance Clear; Urine Bacteria Absent (Absent); Urine Bilirubin Negative (Negative); Urine Blood Negative (Negative); Urine Color Yellow; Urine Glucose Negative (Negative); Urine Ketones Negative (Negative); Urine Nitrite Negative (Negative); Urine Protein Negative (Negative); Urine Red Blood Cell 1+(3-5/hpf) (Absent); Urine Specific Gravity 1.014 (1.010-1.030); Urine Urobilinogen Negative (Negative); Urine White Blood Cell 1+(6-10/hpf) (Absent)
[2019-02-25 14:49] LABS: ALT 20 U/L (7-52); AST 19 U/L (13-39); Albumin 4.2 g/dL (3.2-5.2); Albumin/Globulin Ratio 1.6 (1-3); Alkaline Phosphatase 74 U/L (34-104); Anion Gap 5 mmol/L (2-11); BUN/Creatinine Ratio 12.8 (8-20); Blood Urea Nitrogen 16 mg/dL (6-24); CO2 Carbon Dioxide 30 mmol/L (22-32); Calcium 9.4 mg/dL (8.6-10.3); Chloride 105 mmol/L (101-111); EGFR African American 77.8 (>60); EGFR Non-African American 64.3 (>60); Globulin 2.6 g/dL (2-4); Glucose 148 mg/dL (70-100); Potassium 4.2 mmol/L (3.5-5.0); Sodium 140 mmol/L (135-145); Total Protein 6.8 g/dL (6.4-8.9)
[2019-02-25 15:09] LABS: Acetaminophen < 15 mcg/mL; Alcohol < 10 mg/dL (<10); Salicylate < 2.50 mg/dL (<30)
[2019-02-25 15:16] LABS: Magnesium 2.1 mg/dL (1.9-2.7)
[2019-02-25 15:19] LABS: TSH (Thyroid Stimulating Horm) 1.34 mcIU/mL (0.34-5.60)
[2019-02-25 16:29] LABS: Urine Benzodiazepine Screen None Detected (None Detect); Urine Opiates Screen None Detected (None Detect)
[2019-02-25] MEDS ORDERED: LORazepam TAB(*) 1 MG PO ONE (16:32)
--- NOTE | 2019-02-25 22:52 | ED ---
Progress - Progress Note Progress Note: Receiving sign out from Radha VALDES at 2200 pending MHU Hold. This patient will be signed out to Dr. Fischer at shift change 0700 pending MHU hold. - Consult/PCP Time Called: 07:00 Re-Evaluation - Re-Evaluation First Eval Re-Evaluation Time: 16:32 Comment: patient states anxiety has gotten worst along with nausea but no vomiting or increase tremor. patient would like something for anxiety so will dose of ativan which will help with alcohol withdrawal Second Eval Re-Evaluation Time: 20:58 Comment: spoke with dr tarango who states that wants to hold patient and does not want patient admitted at this time. Third Eval Re-Evaluation Time: 21:44 Comment: currently sleeping Course/Dx - Course Course Of Treatment: Receiving sign out from Radha VALDES at 2200 pending MHU Hold. This patient will be signed out to Dr. Fischer at shift change 0700 pending MHU hold. - Diagnoses Provider Diagnoses: Alcohol withdrawal, Depression Discharge - Sign-Out/Discharge Documenting (check all that apply): Sign-Out Patient, Receiving Sign-Out Signing out patient TO: Jonas Fischer - At 0700 Receiving patient FROM: Holly Garcia - At 2200 - Discharge Plan Referrals: No Primary Care Phys,NOPCP [Primary Care Provider] - - Attestation Statements Document Initiated by Scribe: Yes Documenting Scribe: Mejia Forde Provider For Whom Scribe is Documenting (Include Credential): Jordan Hough MD Scribe Attestation: I, Mejia Forde, scribed for Jordan Hough MD on 02/26/19 at 0622. Status of Scribe Document: Ready
[2019-02-26] MEDS ORDERED: LORazepam TAB(*) 1 MG PO ONE (01:20)
--- NOTE | 2019-02-26 07:16 | ED ---
Progress - Progress Note Progress Note: The patient is a sign-out to Dr. Bassam Arnett MD, from Dr. Jordan Hough MD, at change of shift at 0700 pending MHU hold and disposition. Dr. Tarango, psychiatry , came to the ED at 1400 and states that he believes the patient is clear for discharge. The patient is denying hallucinations, SI, and HI at this time, but he reports being sad due to his time that he will have to serve in halfway. Dr. Tarango also requests that the patient's prescription for Fellows be held due to the amount of EtOH the patient consumes; the patient should be placed on Depakote 500mg BID for 7 days instead. The patient is diagnosed with alcohol use disorder, and he will follow up with his PCP. He agrees with the plan for discharge. - Consult/PCP Time Called: 07:00 Re-Evaluation - Re-Evaluation First Eval Re-Evaluation Time: 16:32 Comment: patient states anxiety has gotten worst along with nausea but no vomiting or increase tremor. patient would like something for anxiety so will dose of ativan which will help with alcohol withdrawal Second Eval Re-Evaluation Time: 20:58 Comment: spoke with dr tarango who states that wants to hold patient and does not want patient admitted at this time. Third Eval Re-Evaluation Time: 21:44 Comment: currently sleeping Course/Dx - Course Course Of Treatment: The patient is a sign-out to Dr. Bassam Arnett MD, from Dr. Jordan Hough MD, at change of shift at 0700 pending MHU hold and disposition. Dr. Tarango, psychiatry, came to the ED at 1400 and states that he believes the patient is clear for discharge. The patient is denying hallucinations, SI, and HI at this time, but he reports being sad due to his time that he will have to serve in halfway. Dr. Tarango also requests that the patient's prescription for Fellows be held due to the amount of EtOH the patient consumes; the patient should be placed on Depakote 500mg BID for 7 days instead. The patient is diagnosed with alcohol use disorder, and he will follow up with his PCP. He agrees with the plan for discharge. - Diagnoses Provider Diagnoses: Alcohol withdrawal, Depression, Alcohol use disorder - Provider Notifications Discussed Care Of Patient With: Sharath Tarango - psychiatry Time Discussed With Above Provider: 14:00 Instructed by Provider To: Other - Dr. Tarango believes the patient is clear for discharge with dx of alcohol use disorder and follow up with PCP. He requests that the pt's medications be changed from lithium to Depakote 500mg BID for 7 days. Discharge - Sign-Out/Discharge Documenting (check all that apply): Patient Departure - Patient will be discharged home., Receiving Sign-Out Receiving patient FROM: Jordan Hough - Patient is a sign-out from Dr. Hough at change of shift pending MHU hold and disposition. Patient Received Moderate/Deep Sedation with Procedure: No - Discharge Plan Condition: Stable Disposition: HOME Patient Education Materials: Alcohol Use Disorder (ED) Referrals: [facility] [Outside] - 3 Days Additional Instructions: FOLLOW UP WITH YOUR PRIMARY CARE PROVIDER IN ONE WEEK. RETURN TO THE EMERGENCY DEPARTMENT FOR ANY NEW OR WORSENING SYMPTOMS. - Billing Disposition and Condition Condition: STABLE Disposition: Home - Attestation Statements Document Initiated by Miranda: Yes Documenting Scribe: Gilma Brown Provider For Whom Miranda is Documenting (Include Credential): Dr. Bassam Arnett MD Scribe Attestation: Gilma Barton scribed for Dr. Bassam Arnett MD on 03/02/19 at 0713. Scribe Documentation Reviewed: Yes Provider Attestation: The documentation as recorded by the Gilma barker accurately reflects the service I personally performed and the decisions made by me, Dr. Bassam Arnett MD Status of Scribe Document: Viewed
--- NOTE | 2019-02-26 08:12 | PN ---
ED Flex Patient Progress Note Subjective: This is a 38 year-old M who is pending psychiatric evaluation by Dr. Rangel secondary to ____SI w/ increased substance use to cope . Admission is recommended based on hx. Pt offers no complaints at this time. Objective: Vitals: Most recent vital signs documented below. General NAD, Alert and oriented x3, resting comfortably on stretcher. EENT: mucosa moist, EOMI Heart: rrr S1/S2 Lungs: CTA, breathing easily AB: + BS, soft INTEG: no acute injuries identified DEBI: moving well NEURO: CN II-XII grossly intact Extremities: no edema, well perfused PSYCH: low mood, poor eye contact Assessment: SI w/ increased substance use Plan: Pending psychiatric evaluation by psychiatrist who opted to wait until today to eval. Recommend admission. Will follow up daily . Vital Signs Temp Pulse Resp BP Pulse Ox 97.8 F 68 16 101/62 98 02/26/19 07:38 02/26/19 07:38 02/26/19 07:38 02/26/19 07:38 02/26/19 07:38 Lab Results - Entire Visit 02/25/19 02/25/19 02/25/19 15:40 14:18 14:18 WBC 7.7 RBC 4.68 Hgb 14.6 Hct 44 MCV 94 MCH 31 MCHC 33 RDW 14 Plt Count 246 MPV 8.0 Neut % (Auto) 81.5 Lymph % (Auto) 13.9 Smyth % (Auto) 4.2 Eos % (Auto) 0.2 Baso % (Auto) 0.2 Absolute Neuts (auto) 6.3 Absolute Lymphs (auto) 1.1 Absolute Monos (auto) 0.3 Absolute Eos (auto) 0.0 Absolute Basos (auto) 0.0 Absolute Nucleated RBC 0.0 Nucleated RBC % 0.0 Sodium 140 Potassium 4.2 Chloride 105 Carbon Dioxide 30 Anion Gap 5 BUN 16 Creatinine 1.25 H Est GFR ( Amer) 77.8 Est GFR (Non-Af Amer) 64.3 BUN/Creatinine Ratio 12.8 Glucose 148 H Calcium 9.4 Magnesium 2.1 Total Bilirubin 1.30 H AST 19 ALT 20 Alkaline Phosphatase 74 Total Protein 6.8 Albumin 4.2 Globulin 2.6 Albumin/Globulin Ratio 1.6 TSH 1.34 Urine Color Urine Appearance Urine pH Ur Specific Palms Urine Protein Urine Ketones Urine Blood Urine Nitrate Urine Bilirubin Urine Urobilinogen Ur Leukocyte Esterase Urine WBC (Auto) Urine RBC (Auto) Urine Bacteria Urine Glucose Salicylates < 2.50 Urine Opiates Screen None detected Acetaminophen < 15 Ur Barbiturates Screen None detected Ur Phencyclidine Scrn None detected Ur Amphetamines Screen None detected U Benzodiazepines Scrn None detected Urine Cocaine Screen None detected U Cannabinoids Screen Presumptive positive A Serum Alcohol < 10 02/25/19 14:17 WBC RBC Hgb Hct MCV MCH MCHC RDW Plt Count MPV Neut % (Auto) Lymph % (Auto) Smyth % (Auto) Eos % (Auto) Baso % (Auto) Absolute Neuts (auto) Absolute Lymphs (auto) Absolute Monos (auto) Absolute Eos (auto) Absolute Basos (auto) Absolute Nucleated RBC Nucleated RBC % Sodium Potassium Chloride Carbon Dioxide Anion Gap BUN Creatinine Est GFR ( Amer) Est GFR (Non-Af Amer) BUN/Creatinine Ratio Glucose Calcium Magnesium Total Bilirubin AST ALT Alkaline Phosphatase Total Protein Albumin Globulin Albumin/Globulin Ratio TSH Urine Color Yellow Urine Appearance Clear Urine pH 6.0 Ur Specific Palms 1.014 Urine Protein Negative Urine Ketones Negative Urine Blood Negative Urine Nitrate Negative Urine Bilirubin Negative Urine Urobilinogen Negative Ur Leukocyte Esterase 1+ A Urine WBC (Auto) 1+(6-10/hpf) A Urine RBC (Auto) 1+(3-5/hpf) A Urine Bacteria Absent Urine Glucose Negative Salicylates Urine Opiates Screen Acetaminophen Ur Barbiturates Screen Ur Phencyclidine Scrn Ur Amphetamines Screen U Benzodiazepines Scrn Urine Cocaine Screen U Cannabinoids Screen Serum Alcohol
[2019-02-26 14:18] VITALS: BP 126/78
--- NOTE | 2019-02-26 14:43 | PN ---
Subjective - Subjective Date of Service: 02/26/19 Service Type: 98059 Hosp care 35 min high complexity - Saw patient in The ED Bedside. Subjective: This 38 y/o WM with known h/o polysubstance use, few prior psychiatric admissions to [facility] mainly due to either threatening or gesturing to kill himself in the context of impending [facility] time. He has a long track record of drug related crime and imprisonment. This time also he just pleaded guilty for burglary and violation of order of protection. He says he will go to [facility] soon and has been feeling sad about that. Although he had suicidal thoughts for about a week he didn't have any active plans. He denies any suicidal/homicidal thoughts today. Also denies hallucinations or delusions. Reports that he has been drinking one bottle of Vodka a day lately. However, his BAL was < 10. Rest of his lab report was unremarkable. Objective - General Observations Appearance: Neat Appears Stated Age: Yes Stature: WNL Posture: WNL Eye Contact: Avoidant Behavior/Activity: WNL - Interaction Observations Attitude Towards Examiner: Cooperative Stated Mood: Anxious Affect: Restricted Speech Pattern/Tone: Clear, Appropriate, Normal Volume Thought Process: Coherent, Goal Directed Thought Content: WNL Hallucination Type: None Delusion Type: None - Cognitive Function Orientation: Person, Place, Time, Situation Level of Consciousness: Awake, Alert, Appropriate Cognition: WNL Estimated Intelligence: Normal Insight: WNL Judgment Within Normal Limits: Yes Assessment - Assessment Clinical Impression: This 38 y/o male with polysubstance use d/o was brought to the ED by his family due to the concern that he might be suicidal which he denies today. He spent the night in the ED without any agitation, aggression or other disorganized behaviors. Didn't have any withdrawal symptoms. He hasn't been verbalizing or exhibiting severe mental health symptoms or posing an imminent risk for suicide / homicide. Plan - Plan Treatment Plan: Name: BRITTNEY RICE Birthdate: 1980 [id number] Continued Medication Management: Continue Outpt Medication - Discontinued [place] and started Depakote ER 500mg PO BID. - Discharge Plan Discharge Plan: Outpatient Follow Up Outpatient Program: Private Clinician(s)
== END 2019-02-26 08:08 | disposition home or self-care (01) ==
LOC: ED 13:40
DX: F10.239 Alcohol dependence with withdrawal, unspecified (principal); F32.9 Major depressive disorder, single episode, unspecified; F17.210 Nicotine dependence, cigarettes, uncomplicated; Z79.899 Other long term (current) drug therapy
CPT/HCPCS: 36415; 80053; 80307; 80320; 80329; 81003; 81015; 83735; 84443; 85025; 87086; 99285; A9270-GY; G0480

== ENCOUNTER 2019-02-28 15:09 | Inpatient (IN) | payer OTHER ==
--- NOTE | 2019-02-28 15:40 | ED ---
Psychiatric Complaint - HPI Summary HPI Summary: This pt is a 38 y/o male presenting to [facility] for worsening SI thoughts and plan. Pt states he has been drinking a "massive amount" of vodka and recently stopped abruptly. He notes drinking alcohol was making him suicidal. His last drink was last night around 19:30. Pt currently reports abd pain and nausea, he does not know if he's going through alcohol withdrawal. Denies vomiting, tremors. Pt denies any fever, chills, erythema of eyes, sore throat, chest pain , SOB, cough, vomiting, dysuria, hematuria, myalgia, edema, rash, or dizziness. Pt was recently seen at [facility] on 02/25/17 and was cleared for discharge on . Pt reports when asked if he had an exact SI plan, he told the warp bleaching vat tender he didn't and got discharged home. Since discharge his SI has been worsening. Pt reports sleeping well but has had decreased appetite. Pt has been admitted in the past for mental health, the last time was in September 2018. He has hx of overdose (took a bottle of clonidine). He has hx of snorting heroin. He is currently on suboxone. He admits to not taking all his medications as prescribed, he states due to drinking he has been forgetting to take them at night. Today he took all his morning medications. - History Of Current Complaint Chief Complaint: EDMentalHealth Time Seen by Provider: 02/28/19 15:26 Hx Obtained From: Patient Onset/Duration: Lasting Days, Still Present Timing: Days Severity Currently: Moderate Character: Depressed Aggravating Factor(s): Nothing Alleviating Factor(s): Nothing Associated Signs And Symptoms: Positive: Appetite Change. Negative: Sleep Disturbance Related History: Positive For: Prior Psychiatric Issues, Drug Abuse Counseling Has Suicidal: Reports: Thoughts, With A Plan Has Homicidal: Denies: Thoughts, With A Plan - Allergies/Home Medications Allergies/Adverse Reactions: Allergies Allergy/AdvReac Type Severity Reaction Status Date / Time No Known Allergies Allergy Verified 02/28/19 15:15 PMH/Surg Hx/FS Hx/Imm Hx Endocrine/Hematology History: Denies: Hx Diabetes Musculoskeletal History: Reports: Other Musculoskeletal History - broke right hand last year Sensory History: Denies: Hx Contacts or Glasses, Hx Hearing Aid Opthamlomology History: Denies: Hx Contacts or Glasses Neurological History: Denies: Hx Dementia, Hx Developmental Delay, Hx Headaches, Hx Migraine, Hx Nerve Disease, Hx Seizures, Hx Spinal Cord Injury, Hx Transient Ischemic Attacks (TIA), Other Neuro Impairments/Disorders Psychiatric History: Reports: Hx Anxiety, Hx Attention Deficit Hyperactivity Disorder, Hx Depression, Hx Inpatient Treatment, Hx Community Mental Health Tx, Hx Bipolar Disorder, Hx Suicide Attempt, Hx Substance Abuse - alcohol and cocaine Denies: Hx Eating Disorder, Hx of Violent Episodes Against Others Infectious Disease History: No Infectious Disease History: Reports: Hx Hepatitis - Hep C, History Other Infectious Disease - varicella as a kid Denies: Hx Clostridium Difficile, Hx Human Immunodeficiency Virus (HIV), Hx of Known/Suspected MRSA, Hx Shingles, Hx Tuberculosis, Hx Known/Suspected VRE, Hx Known/Suspected VRSA, Traveled Outside the [place] in Last 30 Days - Family History Known Family History: Positive: Diabetes Negative: Cardiac Disease, Hypertension - Social History Alcohol Use: Pt states alcohol amount depends on drug use Alcohol Amount: a bottle vodka a day Hx Substance Use: Yes Substance Use Type: Reports: Cocaine, Heroin, Marijuana, Other Substance Use Comment - Amount & Last Used: LSD Hx Tobacco Use: Yes Smoking Status (MU): Current Every Day Smoker Type: Cigarettes Amount Used/How Often: 1 ppd Length of Time of Smoking/Using Tobacco: Began at 27 years of age Have You Smoked in the Last Year: Yes Review of Systems Constitutional: Other - POSITIVE: appetite change Negative: Fever, Chills Negative: Erythema Negative: Sore Throat Negative: Chest Pain Negative: Shortness Of Breath, Cough Positive: Abdominal Pain, Nausea. Negative: Vomiting Negative: dysuria, hematuria Negative: Myalgia, Edema Negative: Rash Neurological: Other - NEGATIVE: dizziness Psychological: Other - POSITIVE: SI thoughts and plan Positive: Depressed All Other Systems Reviewed And Are Negative: Yes Physical Exam - Summary Physical Exam Summary: Constitutional: Well-developed, Well-nourished, Alert. (-) Distressed Skin: Warm, Dry HENT: Normocephalic; Atraumatic Eyes: Conjunctiva normal Neck: Musculoskeletal ROM normal neck. (-) JVD, (-) Stridor, (-) Tracheal deviation Cardio: Rhythm regular, rate normal, Heart sounds normal; Intact distal pulses; The pedal pulses are 2+ and symmetric. Radial pulses are 2+ and symmetric. (-) Murmur Pulmonary/Chest wall: Effort normal. (-) Respiratory distress, (-) Wheezes, (-) Rales Abd: Soft, (-) Tenderness, (-) Distension, (-) Guarding, (-) Rebound Musculoskeletal: (-) Edema Lymph: (-) Cervical adenopathy Neuro: Alert, Oriented x3 Psych: Mood and affect Normal. No signs of withdrawal. Triage Information Reviewed: Yes Vital Signs On Initial Exam: Initial Vitals Temp Pulse Resp BP Pulse Ox 97 F 70 16 116/75 98 02/28/19 15:11 02/28/19 15:11 02/28/19 15:11 02/28/19 15:11 02/28/19 15:11 Vital Signs Reviewed: Yes Diagnostics - Vital Signs Vital Signs Temp Pulse Resp BP Pulse Ox 02/28/19 15:11 97 F 70 16 116/75 98 - Laboratory Result Diagrams: 02/28/19 16:23 02/28/19 16:23 Lab Statement: Any lab studies that have been ordered have been reviewed, and results considered in the medical decision making process. Course/Dx - Course Assessment/Plan: Pt is a 38 y/[facility] male [facility] thoughts and plan. Pt states he has been drinking a "massive amount" of vodka and recently stopped abruptly. He notes drinking alcohol was making him suicidal. His last drink was last night around 19:30. Pt currently reports abd pain and nausea, he does not know if he's going through alcohol withdrawal. Denies vomiting, tremors. Pt was medically cleared. He had a mental health evaluation and his case was reviewed by Dr. Kaye, psychiatrist. Per warp bleaching vat tender, Dr. Kaye will admit the pt with dx depressive disorder. Due to no bed availability at [facility] at this time, pt will require transfer. Pt will be signed out to Dr. Hough, pending transfer. - Differential Dx/Clinical Impression Provider Diagnosis: Depressive disorder, Alcoholism Discharge - Sign-Out/Discharge Documenting (check all that apply): Sign-Out Patient Signing out patient TO: Jordan Hough - pending MH transfer Patient Received Moderate/Deep Sedation with Procedure: No - Discharge Plan Condition: Stable Referrals: No Primary Care Phys,NOPCP [Primary Care Provider] - - Attestation Statements Document Initiated by Scribe: Yes Documenting Scribe: Catherine Maciel Provider For Whom Scribe is Documenting (Include Credential): Jesu Almaguer MD Scribe Attestation: I, Catherine Maciel, scribed for Jesu Almaguer MD on 02/28/19 at 1934. Status of Scribe Document: Ready
[2019-02-28] MEDS ORDERED: Thiamine IV* 100 MG/ML 2 ML VIAL IM ONE (15:52)
[2019-02-28] MEDS ORDERED: LORazepam TAB(*) 1 MG PO ONE ×2 (15:53→17:18)
[2019-02-28 16:31] LABS: ABS Lymphocytes 1.2 10^3/ul (1.0-4.8); ABS Monocytes 0.5 10^3/ul (0-0.8); ABS Neutrophils 7.3 10^3/ul (1.5-7.7); Eosinophil % 0.4 %; Hematocrit 45 % (42-52); Hemoglobin 15.4 g/dL (14.0-18.0); Mean Corpuscular HGB Conc 34 g/dL (31-36); Mean Corpuscular Hemoglobin 32 pg (27-31); Mean Corpuscular Volume 94 fL (80-94); Mean Platelet Volume 8.2 fL (7.4-10.4); Nucleated Red Blood Cells % 0.1; Platelet Count 236 10^3/uL (150-450); Red Blood Count 4.81 10^6 /uL (4.18-5.48); Red Cell Distribution Width 14 % (10-15); White Blood Count 9.1 10^3/uL (3.5-10.8)
[2019-02-28 16:52] LABS: Albumin 4.6 g/dL (3.2-5.2); Anion Gap 6 mmol/L (2-11); CO2 Carbon Dioxide 29 mmol/L (22-32); Calcium 9.8 mg/dL (8.6-10.3); Chloride 102 mmol/L (101-111); Potassium 4.3 mmol/L (3.5-5.0); Sodium 137 mmol/L (135-145)
[2019-02-28 16:56] LABS: Acetaminophen < 15 mcg/mL; Alcohol < 10 mg/dL (<10); Salicylate < 2.50 mg/dL (<30)
[2019-02-28 16:58] LABS: ALT 22 U/L (7-52); AST 20 U/L (13-39); Albumin/Globulin Ratio 1.6 (1-3); Alkaline Phosphatase 70 U/L (34-104); BUN/Creatinine Ratio 13.6 (8-20); Blood Urea Nitrogen 16 mg/dL (6-24); EGFR African American 83.2 (>60); EGFR Non-African American 68.7 (>60); Globulin 2.8 g/dL (2-4); Glucose 106 mg/dL (70-100); Total Protein 7.4 g/dL (6.4-8.9)
[2019-02-28] MEDS: Thiamine TAB* 100 MG TAB PO SCH (17:26)
[2019-02-28] MEDS: Folic Acid TAB* 1 MG PO SCH (17:26)
[2019-02-28 17:39] LABS: TSH (Thyroid Stimulating Horm) 1.59 mcIU/mL (0.34-5.60)
[2019-02-28 18:13] LABS: Lithium 0.78 mmol/L (0.6-1.2)
[2019-02-28] MEDS ORDERED: Lorazepam PYXIS KEY PRN (19:07)
[2019-02-28] MEDS ORDERED: LORazepam INJ* 2 MG/ML 1 ML VIAL IM ONE (19:07)
[2019-02-28] MEDS: Multivitamins/Minerals TAB PO SCH (19:08)
[2019-02-28] MEDS ORDERED: Lorazepam PYXIS KEY ONE ×2 (19:15→19:17)
[2019-02-28] MEDS ORDERED: Divalproex DR TAB(*) 500 MG PO ONE (19:15)
[2019-02-28] MEDS ORDERED: Buprenorp/Nalox 8-2 MG FILM SL FILM ONE (19:16)
[2019-02-28] MEDS ORDERED: Lithium Carbonate TAB* 300 MG PO ONE ×2 (19:22→21:46)
--- NOTE | 2019-02-28 21:54 | ED ---
Progress - Progress Note Progress Note: Pt is received as a sign out from Dr Almaguer to Dr Hough at 1900 02/28/19 shift change pending disposition of this mental health patient. - Consult/PCP Time Called: 17:20 Course/Dx - Diagnoses Provider Diagnoses: Depressive disorder, Alcoholism Discharge - Discharge Plan Condition: Stable Referrals: No Primary Care Phys,NOPCP [Primary Care Provider] - - Attestation Statements Document Initiated by Scribe: Yes
[2019-02-28] MEDS ORDERED: Nicotine PATCH 21 MG/24 HR* PATCH TRANSDERM ONE (22:26)
[2019-03-01] MEDS ORDERED: Buprenorp/Nalox 8-2 MG SL TAB PO ONE (07:00)
--- NOTE | 2019-03-01 07:20 | ED ---
Progress - Progress Note Progress Note: Pt is received as a sign out to Dr. Almaguer from Dr. Hough at shift change 0700 pending transfer for this mental health pt. - Consult/PCP Time Called: 17:20 Re-Evaluation - Re-Evaluation First Eval Re-Evaluation Time: 08:10 Change: Unchanged Comment: Pt will be admitted to [facility] Psych per Dr. Kaye psychiatrist with a Dx of unspecified depression. Second Eval Re-Evaluation Time: 10:27 Change: Unchanged Comment: Pt refused certain medications even though they were on his MAR. He stated different values of medications than were listed. Course/Dx - Course Course Of Treatment: Pt is received as a sign out to Dr. Almaguer from Dr. Hough at shift change 0700 03/01/19 pending transfer for this mental health pt. Pt will be admitted to [facility] per Dr. Kaye Psychiatrist, with a Dx of unspecified depression. - Diagnoses Provider Diagnoses: Depressive disorder - Provider Notifications Discussed Care Of Patient With: Kev Kaye Time Discussed With Above Provider: 08:10 Instructed by Provider To: Admit As Inpatient Discharge - Sign-Out/Discharge Documenting (check all that apply): Patient Departure - admitted Patient Received Moderate/Deep Sedation with Procedure: No - Discharge Plan Condition: Stable Disposition: PSYCHIATRIC FACILITY-[facility] Referrals: No Primary Care Phys,NOPCP [Primary Care Provider] - - Attestation Statements Document Initiated by Scribe: Yes Documenting Scribe: Bharat Solano Provider For Whom Scribe is Documenting (Include Credential): Jesu Almaguer MD Scribe Attestation: Bharat Barton, scribed for Jesu Almaguer MD on 03/01/19 at 1029. Status of Scribe Document: Ready
[2019-03-01] MEDS: Folic Acid TAB* 1 MG PO SCH (10:17)
[2019-03-01] MEDS: Lithium Carbonate TAB* 300 MG PO SCH ×3 (10:18→23:38)
[2019-03-01] MEDS: Thiamine TAB* 100 MG TAB PO SCH (10:19)
[2019-03-01] MEDS: Divalproex DR TAB(*) 500 MG PO SCH (10:32)
[2019-03-01] MEDS ORDERED: Al Hydrox/Mg Hydrox/Simet LIQ* 30 ML UDC PO PRN (10:36)
[2019-03-01] MEDS ORDERED: LORazepam TAB(*) 1 MG PO ONE (10:47)
[2019-03-01] MEDS: Topiramate TAB(*) 100 MG PO SCH (11:15)
[2019-03-01] MEDS ORDERED: Nicotine PATCH 21 MG/24 HR* PATCH TRANSDERM ONE (11:18)
[2019-03-01] MEDS: Nicotine* 4MG (FRUIT FLAVOR) GUM PO PRN ×2 (11:24→14:37)
[2019-03-01] MEDS: LORazepam TAB(*) 1 MG PO SCH ×3 (14:28→23:33)
[2019-03-01 14:45] LABS: Urine Appearance Cloudy; Urine Bacteria Absent (Absent); Urine Bilirubin Negative (Negative); Urine Blood Negative (Negative); Urine Color Yellow; Urine Glucose Negative (Negative); Urine Ketones Negative (Negative); Urine Nitrite Negative (Negative); Urine Protein Negative (Negative); Urine Red Blood Cell Trace(0-2/hpf) (Absent); Urine Specific Gravity 1.008 (1.010-1.030); Urine Urobilinogen Negative (Negative); Urine White Blood Cell 1+(6-10/hpf) (Absent)
[2019-03-01 15:02] LABS: Urine Benzodiazepine Screen None Detected (None Detect); Urine Opiates Screen None Detected (None Detect)
[2019-03-02] MEDS: Multivitamins/Minerals TAB PO SCH ×4 (01:20→12:17)
[2019-03-02] MEDS ORDERED: LORazepam PO 0-6 for WAM protocol PO SCH (02:00)
[2019-03-02] MEDS: Divalproex DR TAB(*) 500 MG PO SCH (03:19)
[2019-03-02] MEDS: Thiamine TAB* 100 MG TAB PO SCH ×3 (08:44→12:17)
[2019-03-02] MEDS: Topiramate TAB(*) 100 MG PO SCH ×3 (08:44→12:17)
[2019-03-02] MEDS: Folic Acid TAB* 1 MG PO SCH ×3 (08:44→12:17)
[2019-03-02] MEDS: Lithium Carbonate TAB* 300 MG PO SCH ×4 (08:44→21:32)
[2019-03-02] MEDS: Buprenorp/Nalox 8-2 MG FILM SL FILM SCH ×3 (08:44→12:17)
[2019-03-02] MEDS ORDERED: LORazepam TAB(*) 1 MG PO PRN (11:41)
--- NOTE | 2019-03-02 11:52 | HP ---
H&P (Free Text) History and Physical: Justification for admission: Immediate Safety. CC " I have to do [facility] time" The patient was brought to [facility] by mother and girlfriend. He reported having plans to end his life by tieing a electrical cord around a rafter and hang himself. He reported current stressors to be going to [facility]ci for 4 months in March for violating a personal protection order. He reported being depressed lately and has been drinking a fifth of vodka on a daily basis. He denied access to firearms or stockpiles of medications. He reported excessive sleep and normal appetite. The patient denied homicidal ideation intent or plan. The patient denied auditory and/ or visual hallucinations. He denied recent seizures, agitation, shaking. He reported having alcohol cravings. MDD He reported feeling depressed for more than 2 weeks and is unable to keep up with taking care of himself. He reported feeling empty inside, feelings of hopelessness, and worthlessness. He denied unintentional weight loss and appetite. Denied interruption of sleep. He has been thinking of suicide lately. Bipolar He reported having a manic episode symptoms of gilma lasting more than a week, with the last episode being a year ago. He describes this as feeling indestructible, increased talkativeness, and going on a cleaning binge. Anxiety Denied having symptoms of anxiety such as having times where heart feels that it is beating out of chest , sweaty palms, or shallow breathing. Denied having uncomfortable or intrusive thoughts. Denied feeling restless, high strung, or worrying too much most of the time. He describes having panic attacks with the last episode being at age [age] years old. Psychosis Does not endorse hearing things that other people do not hear or seeing things other people do not see. Denied feeling that TV is making references. Denied feeling that people are spying , following , or reading their thoughts. Phobias: Patient denied having excessive fear of a particular thing or situation. Eating disorders: Patient denied having excessive eating habits or feelings of guilt after eating. Denied repeated episodes of self induced vomiting after eating. PTSD Denied flashbacks, nightmares and avoidance of a prior traumatic event. PAST PSYCHIATRIC HISTORY: Prior Diagnosis : Bipolar I, alcohol use disorder, cannabis use disorder, Opioid use disorder, antisocial personality disorder, attention deficit hyperactivity disorder, generalized anxiety disorder. History of past Psychiatric Hospitalizations: 5 x prior psychiatric hospitalizations [place] [facility] [place], [place], 2013 and twice in 2018 Last being in September 2018 History of past suicide/homicide attempts : 3 past suicide attempts. Overdose of pills October 13 and was hospitalized [place] [facility] Several attempts including placing a loaded gun to his head when he was in his 20s and intentional overdose in 2011, attempting to hang himself in November 2017 He denied past homicidal incidents. Outpatient follow-up: [facility] in the past Medications: Past trials of medications include [place], Ritalin, gabapentin, citalopram, bupropion, lamotrigine, aripiprazole, clonazepam, alprazolam, diazepam Guardianship: None. FAMILY HISTORY: - Suicide: Denied family history of suicide. - Mental illness: Mother bipolar disorder - Substance abuse: Grandfather alcoholism. SUBSTANCE ABUSE HISTORY: - EtOH: 750ml of vodka/ per day, for the last 4 months, no seizures, DTs , blackouts or legal issues - Tobacco: smokes 1/2 pack per day - Cannabis: occasional use - Opiate: In mid 20s abused oxycontin and heroin. He was placed on suboxone at [facility]. Currently receiving suboxone 8mg/ 2mg from Dr. Gillespie - Cocaine: used in his 20s, denied recent use. - Substance abuse treatment: Past substance abuse treatment at [facility] in [facility] 2008. In 2012, he had a hospitalization at the dual diagnosis recovery center in [place], [place] and in 2016, he was court ordered to treatment at the [facility] in [place], [place]. SOCIAL HISTORY: Grew up in [place] and raised by both parents until age of 12 when his parents . He has 3 sons and 1 daughter. 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 Currently living at a friends house in [place]. - Education: High school. - Relationship: . - Legal history: Multiple arrests. At this time he is court mandated to serve [facility] time in March for violation of protection order - service history: Denied PAST MEDICAL HISTORY: Denied heart disease, diabetes, cancer. Prior history of Lyme disease. - Allergies: Denied drug or other allergies. Physical Exam: Please see ED note Mental Status Exam on Admission APPEARANCE : 38 year old male who appears stated age. Patient has short hair appears to have fair hygiene and grooming. BEHAVIOR: Cooperative EYE CONTACT: fair PSYCHOMOTOR ACTIVITY: mild psychomotor retardation. MOVEMENTS: No abnormal movements observed. SPEECH : Slow rate, rhythm, volume and tone. MOOD : " Depressed " AFFECT : Type is depressed Range is restricted with shallow depth Mood Incongruent THOUGHT PROCESS: loose associations THOUGHT CONTENT: poverty of content PERCEPTION: No current auditory or visual hallucinations. Doesnt appear to be responding to internal cues. No evidence of depersonalization , de-realization, or illusions SUICIDALITY suicidal ideation with plan HOMICIDALITY Denied homicidal ideation, intent or plan. Insight/judgment: Poor insight and judgment ORIENTATION: Oriented to self, location, month not year. Diagnosis on Admission: Bipolar I disorder, currently depressed without psychotic features , Alcohol use disorder, Opioid use disorder. Tobacco use disorder. Antisocial personality disorder by history. Assessment: 38 year old male with history of Bipolar I disorder, and poly-substance abuse came to the hospital with suicidal ideation with plan to tie a electrical cord around a rafter and hang himself. Plan #Admit to [facility], Q15 minute observation. Start regular diet. Encourage participation in activities on the milieu. #Patient evaluated in ED and was determined by the emergency room Physician to be medically fit for admission to the [facility]. # Justification for Admission: For immediate safety per outlined in the [place] Mental Hygiene Code. # The patient requires inpatient admission at this time to assure safety, receive treatment and work toward stabilization. # Labs ordered: CBC, CMP, UDS, TSH, HBA1c, TSH, Toxicology screen, Urine analysis, and lipid profile. #EKG ordered # Obtain collateral information once release is signed. # Collaboration with Gaming Commissioner Inga Apple # WAM was discontinued and scheduled alcohol protocol with ativan taper was put in place for 8 doses over 2 days. # Substance Abuse resources offered and he is considering alcohol rehabilitation # Tobacco use disorder: Nicotine supplement offered and put in place. #ATHLETE MARKETING AGENT [place] was checked and verified suboxone dose. #Goals before discharge include: To eliminate/ reduce suicidal ideation The risks, benefits, and alternative treatment options were discussed as well as of the risks of refusing treatment. After this discussion and an acknowledgement of this understanding was made. A risk/ benefit assessment of treatment was considered and discussed with the patient. When comparing the risks of treatment with the dangers of not receiving treatment, the benefits of treatment outweigh the treatment risks at this time. Risks of allergy, suicidal ideation, behavioral changes, dystonia, rashes, electrolyte imbalances, movement disorders, cardiac conduction changes, serotonin syndrome, metabolic risks and NMS were among some of the risks discussed. Acetaminophen (Tylenol Tab*) 650 mg PO Q4H PRN PRN Reason: PAIN Al Hydrox/Mg Hydrox/Simethicone (Maalox Plus*) 30 ml PO Q4H PRN PRN Reason: INDIGESTION Aripiprazole (Abilify Tab*) 5 mg PO BEDTIME [facility] Buprenorphine/Naloxone (Suboxone 8 Mg-2 Mg Sl Film) 1 each SL FILM DAILY [facility] Last Admin: 03/02/19 12:17 Dose: 1 each Folic Acid (Folvite Tab*) 1 mg PO DAILY [facility] Last Admin: 03/02/19 12:17 Dose: 1 mg [place] Carbonate ([place] Carbonate Tab*) 600 mg PO BID [facility] Last Admin: 03/02/19 12:17 Dose: 600 mg Lorazepam (Ativan Tab(*)) 1 mg PO Q6H [facility] Stop: 03/03/19 11:59 Last Admin: 03/02/19 12:12 Dose: 1 mg Lorazepam (Ativan Tab(*)) 0.5 mg PO Q6H [facility] Stop: 03/04/19 12:00 Multivitamins/Minerals (Theragran/Minerals Tab*) 1 tab PO DAILY [facility] Last Admin: 03/02/19 12:17 Dose: 1 tab Nicotine Polacrilex (Nicotine Gum*) 4 mg PO Q2H PRN PRN Reason: CRAVING Last Admin: 03/01/19 14:37 Dose: 4 mg Thiamine HCl (Vitamin B-1 Tab*) 100 mg PO DAILY [facility] Last Admin: 03/02/19 12:17 Dose: 100 mg Topiramate (Topamax(*)) 200 mg PO DAILY [facility] Last Admin: 03/02/19 12:17 Dose: 200 mg Sodium 137 mmol/L (135-145) 02/28/19 16:23 Potassium 4.3 mmol/L (3.5-5.0) 02/28/19 16:23 BUN 16 mg/dL (6-24) 02/28/19 16:23 Creatinine 1.18 mg/dL (0.67-1.17) H 02/28/19 16:23 Calcium 9.8 mg/dL (8.6-10.3) 02/28/19 16:23 AST 20 U/L (13-39) 02/28/19 16:23 ALT 22 U/L (7-52) 02/28/19 16:23 Vital Signs Temp Pulse Resp BP Pulse Ox 98.5 F 94 16 108/66 100 03/02/19 06:00 03/02/19 06:00 03/02/19 12:12 03/02/19 06:00 03/02/19 06:00
[2019-03-02] MEDS ORDERED: LORazepam TAB(*) 0.5 MG PO SCH (12:00)
[2019-03-02] MEDS ORDERED: LORazepam TAB(*) 1 MG PO SCH (12:00)
[2019-03-02] MEDS: LORazepam TAB(*) 1 MG PO SCH ×2 (12:12→18:00)
[2019-03-02] MEDS: ARIPiprazole TAB* 5 MG PO SCH (21:31)
[2019-03-02] MEDS: Acetaminophen TAB* 325 MG PO PRN (21:35)
[2019-03-03] MEDS: LORazepam TAB(*) 1 MG PO SCH ×2 (00:23→06:47)
[2019-03-03 09:58] LABS: HDL Cholesterol 55.7 mg/dL
--- NOTE | 2019-03-03 11:27 | PN ---
Subjective - Subjective Date of Service: 03/03/19 Service Type: 31287 Hosp care 35 min high complexity Subjective: Nursing Report: Patient was visible on unit, no chemical restraints or PRNs. Isolating in his room. Not attending group activities. CC: "Okay" Patient was seen and evaluated in his room where he was observed sleeping. The patient reported that he is uncertain about going to substance abuse rehab, and is mostly concerned about doing [facility] time in April. He denied chest pain, sweating, tremors, seeing things other people do not see. He reported that he is depressed and that it will take him a day to "snap out of it." Objective - General Observations Appears Stated Age: Yes Stature: WNL Posture: Slumped Eye Contact: Avoidant Behavior/Activity: Slowed - Interaction Observations Attitude Towards Examiner: Confused Stated Mood: Dysphoric Affect: Blunted Speech Pattern/Tone: Delayed Thought Process: Impoverished Perception: WNL Thought Content: Depressive Hallucination Type: None Delusion Type: None - Cognitive Function Orientation: Confused Level of Consciousness: Awake Cognition: Impaired Memory Judgment Within Normal Limits: No Ability to Make Reasonable Decisions: Moderately Impaired - Medication Compliance Cooperative with Inpatient Medication Regimen: Yes - Group Participation Participates in Group Activities: No Assessment - Assessment Merits Inpatient Hospitalization: For Immediate Safety Plan - Plan Treatment Plan: Name: BRITTNEY RICE Birthdate: 1980 [id number] #Q15 minute observation. # The patient requires inpatient admission at this time to assure safety, receive treatment and work toward stabilization. #EKG results normal # Obtain collateral information once release is signed. # Collaboration with Civil Engineer In Training Inga Apple # Ativan taper will be discontinued tomorrow # Substance Abuse resources offered and he is considering alcohol rehabilitation # Tobacco use disorder: Nicotine supplement offered and put in place. #FILM WASHER [place] was checked and verified suboxone dose. # Hold ativan for BP <90 systolic and < 50 diastolic #Continue to monitor vital signs Goals before discharge: Sobriety, decrease/ eradicate suicidal ideation. Sodium 137 mmol/L (135-145) 02/28/19 16:23 Potassium 4.3 mmol/L (3.5-5.0) 02/28/19 16:23 BUN 16 mg/dL (6-24) 02/28/19 16:23 Creatinine 1.18 mg/dL (0.67-1.17) H 02/28/19 16:23 Calcium 9.8 mg/dL (8.6-10.3) 02/28/19 16:23 AST 20 U/L (13-39) 02/28/19 16:23 ALT 22 U/L (7-52) 02/28/19 16:23 Triglycerides 145 mg/dL 03/03/19 08:42 Cholesterol 153 mg/dL 03/03/19 08:42 LDL Cholesterol 68 mg/dL 03/03/19 08:42 Vital Signs Temp Pulse Resp BP Pulse Ox 98.5 F 94 16 108/66 100 03/02/19 06:00 03/02/19 06:00 03/03/19 09:00 03/02/19 06:00 03/02/19 06:00 Continued Medication Management: Continue Outpt Medication Medications: Current Medications Acetaminophen (Tylenol Tab*) 650 mg PO Q4H PRN PRN Reason: PAIN Last Admin: 03/02/19 21:35 Dose: 650 mg Al Hydrox/Mg Hydrox/Simethicone (Maalox Plus*) 30 ml PO Q4H PRN PRN Reason: INDIGESTION Aripiprazole (Abilify Tab*) 5 mg PO BEDTIME [facility] Last Admin: 03/02/19 21:31 Dose: 5 mg Buprenorphine/Naloxone (Suboxone 8 Mg-2 Mg Sl Film) 1 each SL FILM DAILY [facility] Last Admin: 03/02/19 12:17 Dose: 1 each Folic Acid (Folvite Tab*) 1 mg PO DAILY [facility] Last Admin: 03/02/19 12:17 Dose: 1 mg [place] Carbonate ([place] Carbonate Tab*) 600 mg PO BID [facility] Last Admin: 03/02/19 21:32 Dose: 600 mg Lorazepam (Ativan Tab(*)) 1 mg PO Q6H [facility] Stop: 03/03/19 11:59 Last Admin: 03/03/19 06:47 Dose: 1 mg Lorazepam (Ativan Tab(*)) 0.5 mg PO Q6H [facility] Stop: 03/04/19 12:00 Multivitamins/Minerals (Theragran/Minerals Tab*) 1 tab PO DAILY [facility] Last Admin: 03/02/19 12:17 Dose: 1 tab Nicotine Polacrilex (Nicotine Gum*) 4 mg PO Q2H PRN PRN Reason: CRAVING Last Admin: 03/01/19 14:37 Dose: 4 mg Thiamine HCl (Vitamin B-1 Tab*) 100 mg PO DAILY [facility] Last Admin: 03/02/19 12:17 Dose: 100 mg Topiramate (Topamax(*)) 200 mg PO DAILY [facility] Last Admin: 03/02/19 12:17 Dose: 200 mg - Discharge Plan Discharge Plan: Inpatient Hospitalization
[2019-03-03] MEDS ORDERED: LORazepam TAB(*) 0.5 MG PO SCH (12:00)
[2019-03-03] MEDS ORDERED: LORazepam TAB(*) 1 MG PO SCH (12:00)
[2019-03-03] MEDS: Lithium Carbonate TAB* 300 MG PO SCH ×2 (12:42→21:15)
[2019-03-03] MEDS: Thiamine TAB* 100 MG TAB PO SCH (12:42)
[2019-03-03] MEDS: Folic Acid TAB* 1 MG PO SCH (12:42)
[2019-03-03] MEDS: Topiramate TAB(*) 100 MG PO SCH (12:42)
[2019-03-03] MEDS: LORazepam TAB(*) 0.5 MG PO SCH ×3 (12:42→23:10)
[2019-03-03] MEDS: Multivitamins/Minerals TAB PO SCH (12:42)
[2019-03-03] MEDS: Buprenorp/Nalox 8-2 MG FILM SL FILM SCH (12:45)
[2019-03-03] MEDS ORDERED: LORazepam TAB(*) 1 MG PO ONE (13:56)
[2019-03-03] MEDS ORDERED: Thiamine IV* 100 MG/ML 2 ML VIAL IM SCH (14:00)
[2019-03-03] MEDS: Thiamine IV* 100 MG/ML 2 ML VIAL IM SCH (14:35)
[2019-03-03 14:37] LABS: ABS Eosinophils 0.1 10^3/ul (0-0.6); ABS Lymphocytes 1.2 10^3/ul (1.0-4.8); ABS Monocytes 0.4 10^3/ul (0-0.8); ABS Neutrophils 3.3 10^3/ul (1.5-7.7); Eosinophil % 2.1 %; Hematocrit 42 % (42-52); Hemoglobin 13.9 g/dL (14.0-18.0); Mean Corpuscular HGB Conc 33 g/dL (31-36); Mean Corpuscular Hemoglobin 31 pg (27-31); Mean Corpuscular Volume 93 fL (80-94); Mean Platelet Volume 8.5 fL (7.4-10.4); Platelet Count 199 10^3/uL (150-450); Red Blood Count 4.47 10^6 /uL (4.18-5.48); Red Cell Distribution Width 14 % (10-15)
[2019-03-03] MEDS: Nicotine* 4MG (FRUIT FLAVOR) GUM PO PRN ×3 (14:41→21:15)
[2019-03-03 14:53] LABS: Albumin 3.8 g/dL (3.2-5.2); Albumin/Globulin Ratio 1.7 (1-3); BUN/Creatinine Ratio 15.1 (8-20); Calcium 9.4 mg/dL (8.6-10.3); EGFR African American 94.1 (>60); EGFR Non-African American 77.8 (>60); Globulin 2.3 g/dL (2-4); Potassium 4.2 mmol/L (3.5-5.0); Total Bilirubin 0.4 mg/dL (0.2-1.0); Total Protein 6.1 g/dL (6.4-8.9)
[2019-03-03] MEDS: Nicotine PATCH 21 MG/24 HR* PATCH TRANSDERM SCH (15:04)
[2019-03-03 15:11] LABS: Free T4 0.62 ng/dL (0.61-1.12)
[2019-03-03] MEDS: ARIPiprazole TAB* 5 MG PO SCH (21:15)
[2019-03-04] MEDS: LORazepam TAB(*) 0.5 MG PO SCH ×3 (06:20→20:05)
[2019-03-04] MEDS: Nicotine Patch Removal NOTE FOLLOW UP SCH ×2 (07:55→20:06)
[2019-03-04] MEDS: Folic Acid TAB* 1 MG PO SCH (08:59)
[2019-03-04] MEDS: Lithium Carbonate TAB* 300 MG PO SCH ×2 (09:00→20:04)
[2019-03-04] MEDS: Multivitamins/Minerals TAB PO SCH (09:00)
[2019-03-04] MEDS: Topiramate TAB(*) 100 MG PO SCH (09:00)
[2019-03-04] MEDS: Thiamine TAB* 100 MG TAB PO SCH (09:00)
[2019-03-04] MEDS: Buprenorp/Nalox 8-2 MG FILM SL FILM SCH (09:01)
[2019-03-04] MEDS: Nicotine PATCH 21 MG/24 HR* PATCH TRANSDERM SCH (09:02)
[2019-03-04] MEDS: Thiamine IV* 100 MG/ML 2 ML VIAL IM SCH (09:03)
--- NOTE | 2019-03-04 12:05 | PN ---
Subjective - Subjective Service Type: 32393 Hosp care 35 min high complexity Subjective: Nursing Report: Patient mostly in his room , He is not attending group activities. CC: "I am better Patient was seen and evaluated in his room. The patient reported feeling better after he received the thiamine injection and is less confused. He reported having adequate appetite and sleep. Per nursing no behavioral issues or overnight events reported. Patient reported that he is tolerating medications without side effects. He is agreeable to outpatient rehabilitation. Objective - General Observations Appearance: Disheveled Appears Stated Age: Yes Stature: WNL Posture: WNL Eye Contact: Avoidant Behavior/Activity: Slowed - Interaction Observations Attitude Towards Examiner: Cooperative Stated Mood: Dysphoric Affect: Blunted Speech Pattern/Tone: Clear Thought Process: Coherent Perception: WNL Thought Content: WNL Hallucination Type: Denies Delusion Type: Denies - Cognitive Function Orientation: A&O x 4 Level of Consciousness: Awake - Medication Compliance Cooperative with Inpatient Medication Regimen: Yes - Group Participation Participates in Group Activities: No Assessment - Assessment Merits Inpatient Hospitalization: For Immediate Safety Plan - Plan Treatment Plan: Name: BRITTNEY RICE Birthdate: 1980 [id number] #Q15 minute observation. # The patient requires inpatient admission at this time to assure safety, receive treatment and work toward stabilization. #EKG results normal # Obtain collateral information once release is signed. # Collaboration with Relief Captain Inga Apple # Ativan taper will be discontinued tomorrow # Substance Abuse resources offered and he is considering alcohol rehabilitation # Tobacco use disorder: Nicotine supplement offered and put in place. #GLOVE EXAMINER [place] was checked and verified suboxone dose. # Hold ativan for BP <90 systolic and < 50 diastolic #Continue to monitor vital signs #Thiamine 250mg IM daily # He is agreeable to outpatient rehabilitation. Goals before discharge: Sobriety, decrease/ eradicate suicidal ideation. Sodium 137 mmol/L (135-145) 02/28/19 16:23 Potassium 4.3 mmol/L (3.5-5.0) 02/28/19 16:23 BUN 16 mg/dL (6-24) 02/28/19 16:23 Creatinine 1.18 mg/dL (0.67-1.17) H 02/28/19 16:23 Calcium 9.8 mg/dL (8.6-10.3) 02/28/19 16:23 AST 20 U/L (13-39) 02/28/19 16:23 ALT 22 U/L (7-52) 02/28/19 16:23 Triglycerides 145 mg/dL 03/03/19 08:42 Cholesterol 153 mg/dL 03/03/19 08:42 LDL Cholesterol 68 mg/dL 03/03/19 08:42 Vital Signs Temp Pulse Resp BP Pulse Ox 99.3 F 91 14 119/69 99 03/03/19 11:59 03/04/19 11:48 03/04/19 11:50 03/04/19 11:48 03/03/19 18:00 Continued Medication Management: Continue Outpt Medication Medications: Current Medications Acetaminophen (Tylenol Tab*) 650 mg PO Q4H PRN PRN Reason: PAIN Last Admin: 03/02/19 21:35 Dose: 650 mg Al Hydrox/Mg Hydrox/Simethicone (Maalox Plus*) 30 ml PO Q4H PRN PRN Reason: INDIGESTION Aripiprazole (Abilify Tab*) 5 mg PO BEDTIME [facility] Last Admin: 03/03/19 21:15 Dose: 5 mg Buprenorphine/Naloxone (Suboxone 8 Mg-2 Mg Sl Film) 1 each SL FILM DAILY [facility] Last Admin: 03/04/19 09:01 Dose: 1 each Folic Acid (Folvite Tab*) 1 mg PO DAILY [facility] Last Admin: 03/04/19 08:59 Dose: 1 mg [place] Carbonate ([place] Carbonate Tab*) 600 mg PO BID [facility] Last Admin: 03/04/19 09:00 Dose: 600 mg Multivitamins/Minerals (Theragran/Minerals Tab*) 1 tab PO DAILY [facility] Last Admin: 03/04/19 09:00 Dose: 1 tab Nicotine (Nicotine Patch 21 Mg/24 Hr*) 1 patch TRANSDERM DAILY [facility] Last Admin: 03/04/19 09:02 Dose: 1 patch Nicotine Polacrilex (Nicotine Gum*) 4 mg PO Q2H PRN PRN Reason: CRAVING Last Admin: 03/03/19 21:15 Dose: 4 mg Pharmacy Profile Note (Nicotine Patch Removal Note*) 1 note FOLLOW UP 2100 [facility] Last Admin: 03/04/19 07:55 Dose: Not Given Thiamine HCl (Vitamin B-1 Tab*) 100 mg PO DAILY [facility] Last Admin: 03/04/19 09:00 Dose: 100 mg Thiamine HCl (Vitamin B1 Iv*) 250 mg IM DAILY [facility] Last Admin: 03/04/19 09:03 Dose: 250 mg Topiramate (Topamax(*)) 200 mg PO DAILY [facility] Last Admin: 03/04/19 09:00 Dose: 200 mg - Discharge Plan Discharge Plan: Inpatient Hospitalization
[2019-03-04] MEDS: Nicotine* 4MG (FRUIT FLAVOR) GUM PO PRN ×3 (14:12→20:11)
[2019-03-04] MEDS ORDERED: LORazepam TAB(*) 0.5 MG PO ONE (17:00)
[2019-03-04] MEDS: ARIPiprazole TAB* 5 MG PO SCH (20:05)
[2019-03-05] MEDS: Thiamine TAB* 100 MG TAB PO SCH (11:40)
[2019-03-05] MEDS: Multivitamins/Minerals TAB PO SCH (11:40)
[2019-03-05] MEDS: Buprenorp/Nalox 8-2 MG FILM SL FILM SCH (11:40)
[2019-03-05] MEDS: Lithium Carbonate TAB* 300 MG PO SCH ×2 (11:40→20:23)
[2019-03-05] MEDS: Topiramate TAB(*) 100 MG PO SCH (11:40)
[2019-03-05] MEDS: Folic Acid TAB* 1 MG PO SCH (11:41)
[2019-03-05] MEDS: Nicotine PATCH 21 MG/24 HR* PATCH TRANSDERM SCH (11:43)
[2019-03-05] MEDS: LORazepam TAB(*) 0.5 MG PO SCH ×3 (12:41→20:22)
[2019-03-05] MEDS: Thiamine IV* 100 MG/ML 2 ML VIAL IM SCH ×2 (12:44→18:45)
[2019-03-05] MEDS: Nicotine* 4MG (FRUIT FLAVOR) GUM PO PRN ×2 (14:10→16:10)
[2019-03-05] MEDS: Acetaminophen TAB* 325 MG PO PRN ×2 (14:29→20:24)
--- NOTE | 2019-03-05 15:10 | PN ---
Subjective - Subjective Date of Service: 03/05/19 Service Type: 29993 Hosp care 15 min low complexity Subjective: Josse reports coping as best he can with a provocative and threatening patient on the unit. He reports otherwise doing OK, though feeling depressed, but no longer suicidal. Objective - General Observations Appearance: Disheveled - mildly Appears Stated Age: Yes Stature: WNL Posture: WNL Eye Contact: Average Behavior/Activity: Slowed - found in bed midday - Interaction Observations Attitude Towards Examiner: Cooperative Stated Mood: Dysphoric Speech Pattern/Tone: Clear, Appropriate, Normal Volume Thought Process: Coherent, Goal Directed Perception: WNL Thought Content: WNL Hallucination Type: None Delusion Type: None - Cognitive Function Orientation: A&O x 4 Level of Consciousness: Awake, Alert, Appropriate Cognition: WNL Estimated Intelligence: Normal Insight: WNL Judgment Within Normal Limits: Yes Ability to Make Reasonable Decisions: Mildly Impaired - Medication Compliance Cooperative with Inpatient Medication Regimen: Yes Assessment - Assessment Merits Inpatient Hospitalization: For Stabilization, Consolidate Improvements, For Discharge Planning Inpatient DSM-V Dx: F31.4 Clinical Impression: Josse reports continued depressed mood, but no intent or plan today toward suicide. Plan - Plan Treatment Plan: Name: JOSSE RICE Birthdate: 1980 [id number] #Q15 minute observation. # The patient requires inpatient admission at this time to assure safety, receive treatment and work toward stabilization. #EKG results normal # Obtain collateral information once release is signed. # Collaboration with Typists Supervisor Inga Apple # Ativan taper will be discontinued tomorrow # Substance Abuse resources offered and he is considering alcohol rehabilitation # Tobacco use disorder: Nicotine supplement offered and put in place. #[place] was checked and verified suboxone dose. # Hold ativan for BP <90 systolic and < 50 diastolic #Continue to monitor vital signs #Thiamine 250mg IM daily # He is agreeable to outpatient rehabilitation. Goals before discharge: Sobriety, decrease/ eradicate suicidal ideation. Vital signs restabilized after hypotensive reading yesterday morning. Will continue to follow. Missed 9am lorazepam dose. Given one-time 0.5 mg dose. Vital Signs 02/28/19 02/28/19 02/28/19 15:11 17:26 19:21 Temperature 97 F Pulse Rate 70 Respiratory 16 18 18 Rate Blood Pressure 116/75 (mmHg) O2 Sat by Pulse 98 Oximetry 03/01/19 03/01/19 03/01/19 11:15 14:28 15:22 Temperature 98.4 F Pulse Rate 101 Respiratory 16 16 16 Rate Blood Pressure 94/54 (mmHg) O2 Sat by Pulse 99 Oximetry 03/01/19 03/01/19 03/01/19 15:46 15:48 23:16 Temperature 97.4 F Pulse Rate 90 Respiratory 16 16 16 Rate Blood Pressure 101/75 (mmHg) O2 Sat by Pulse 100 Oximetry 03/01/19 03/02/19 03/02/19 23:30 06:00 12:12 Temperature 98.5 F Pulse Rate 69 94 Respiratory 20 16 Rate Blood Pressure 105/72 108/66 (mmHg) O2 Sat by Pulse 100 100 Oximetry 03/02/19 03/02/19 03/02/19 14:55 18:00 20:06 Temperature Pulse Rate Respiratory 16 16 16 Rate Blood Pressure (mmHg) O2 Sat by Pulse Oximetry 03/02/19 03/03/19 03/03/19 21:48 00:23 05:37 Temperature Pulse Rate Respiratory 16 16 18 Rate Blood Pressure (mmHg) O2 Sat by Pulse Oximetry 03/03/19 03/03/19 03/03/19 06:47 09:00 11:59 Temperature 99.3 F Pulse Rate 100 Respiratory 16 16 16 Rate Blood Pressure 105/63 (mmHg) O2 Sat by Pulse 97 Oximetry 03/03/19 03/03/19 03/03/19 12:42 14:34 14:47 Temperature Pulse Rate Respiratory 16 16 16 Rate Blood Pressure (mmHg) O2 Sat by Pulse Oximetry 03/03/19 03/03/19 03/03/19 16:57 16:58 18:00 Temperature Pulse Rate 78 Respiratory 16 16 Rate Blood Pressure 110/45 (mmHg) O2 Sat by Pulse 99 Oximetry 03/03/19 03/03/19 03/03/19 18:02 21:02 23:10 Temperature Pulse Rate Respiratory 16 16 16 Rate Blood Pressure (mmHg) O2 Sat by Pulse Oximetry 03/04/19 03/04/19 03/04/19 06:20 08:58 09:00 Temperature Pulse Rate 80 Respiratory 16 18 14 Rate Blood Pressure 103/66 (mmHg) O2 Sat by Pulse Oximetry 03/04/19 03/04/19 03/04/19 11:48 11:50 13:56 Temperature Pulse Rate 91 Respiratory 14 16 Rate Blood Pressure 119/69 (mmHg) O2 Sat by Pulse Oximetry 03/04/19 03/04/19 03/05/19 17:18 20:05 08:00 Temperature 98.9 F Pulse Rate 63 Respiratory 16 20 16 Rate Blood Pressure 78/44 (mmHg) O2 Sat by Pulse 98 Oximetry 03/05/19 03/05/19 11:48 13:15 Temperature Pulse Rate 74 Respiratory 16 Rate Blood Pressure 108/70 (mmHg) O2 Sat by Pulse 100 Oximetry Continued Medication Management: Consider Medication Medications: Current Medications Acetaminophen (Tylenol Tab*) 650 mg PO Q4H PRN PRN Reason: PAIN Last Admin: 03/05/19 14:29 Dose: 650 mg Al Hydrox/Mg Hydrox/Simethicone (Maalox Plus*) 30 ml PO Q4H PRN PRN Reason: INDIGESTION Aripiprazole (Abilify Tab*) 5 mg PO BEDTIME [facility] Last Admin: 03/04/19 20:05 Dose: 5 mg Buprenorphine/Naloxone (Suboxone 8 Mg-2 Mg Sl Film) 1 each SL FILM DAILY [facility] Last Admin: 03/05/19 11:40 Dose: 1 each Folic Acid (Folvite Tab*) 1 mg PO DAILY [facility] Last Admin: 03/05/19 11:41 Dose: 1 mg [place] Carbonate ([place] Carbonate Tab*) 600 mg PO BID [facility] Last Admin: 03/05/19 11:40 Dose: 600 mg Lorazepam (Ativan Tab(*)) 0.5 mg PO BID [facility] Last Admin: 03/04/19 20:05 Dose: 0.5 mg Multivitamins/Minerals (Theragran/Minerals Tab*) 1 tab PO DAILY [facility] Last Admin: 03/05/19 11:40 Dose: 1 tab Nicotine (Nicotine Patch 21 Mg/24 Hr*) 1 patch TRANSDERM DAILY [facility] Last Admin: 03/05/19 11:43 Dose: 1 patch Nicotine Polacrilex (Nicotine Gum*) 4 mg PO Q2H PRN PRN Reason: CRAVING Last Admin: 03/05/19 14:10 Dose: 4 mg Pharmacy Profile Note (Nicotine Patch Removal Note*) 1 note FOLLOW UP 2100 [facility] Last Admin: 03/04/19 20:06 Dose: 1 note Thiamine HCl (Vitamin B-1 Tab*) 100 mg PO DAILY [facility] Last Admin: 03/05/19 11:40 Dose: 100 mg Thiamine HCl (Vitamin B1 Iv*) 250 mg IM DAILY [facility] Last Admin: 03/05/19 12:44 Dose: Not Given Topiramate (Topamax(*)) 200 mg PO DAILY [facility] Last Admin: 03/05/19 11:40 Dose: 200 mg
[2019-03-05] MEDS ORDERED: LORazepam TAB(*) 0.5 MG PO ONE (15:16)
[2019-03-05] MEDS: ARIPiprazole TAB* 5 MG PO SCH (20:22)
[2019-03-05] MEDS: Nicotine Patch Removal NOTE FOLLOW UP SCH (20:27)
[2019-03-06] MEDS ORDERED: LORazepam TAB(*) 0.5 MG PO SCH (13:32)
[2019-03-06] MEDS: LORazepam TAB(*) 0.5 MG PO SCH ×2 (14:56→20:08)
[2019-03-06] MEDS: Thiamine TAB* 100 MG TAB PO SCH (14:57)
[2019-03-06] MEDS: Lithium Carbonate TAB* 300 MG PO SCH ×2 (14:57→20:08)
[2019-03-06] MEDS: Folic Acid TAB* 1 MG PO SCH (14:57)
[2019-03-06] MEDS: Multivitamins/Minerals TAB PO SCH (14:58)
[2019-03-06] MEDS: Topiramate TAB(*) 100 MG PO SCH (14:58)
[2019-03-06] MEDS: Buprenorp/Nalox 8-2 MG FILM SL FILM SCH (14:58)
[2019-03-06] MEDS: Nicotine PATCH 21 MG/24 HR* PATCH TRANSDERM SCH (14:58)
[2019-03-06] MEDS: Thiamine IV* 100 MG/ML 2 ML VIAL IM SCH (15:03)
[2019-03-06] MEDS: ARIPiprazole TAB* 5 MG PO SCH (20:09)
[2019-03-06] MEDS: Nicotine Patch Removal NOTE FOLLOW UP SCH (21:36)
--- NOTE | 2019-03-07 08:47 | DS ---
Subjective - Subjective Service Types: [address] [facility] Day Mgmt complex over 30 min Discharge Date: 03/07/19 Subjective: CC: " I am better" Patient looks forward to going home and start a life without drinking. The patient was seen and evaluated before discharge today. The patient reported having adequate appetite and sleep. Per nursing no behavioral issues or overnight events reported. Patient reported tolerating medications without side effects. Justification for admission: Immediate Safety. CC " I have to do correction time" The patient was brought to [facility] by mother and girlfriend. He reported having plans to end his life by tieing a electrical cord around a rafter and hang himself. He reported current stressors to be going to correction for 4 months in March for violating a personal protection order. He reported being depressed lately and has been drinking a fifth of vodka on a daily basis. He denied access to firearms or stockpiles of medications. He reported excessive sleep and normal appetite. The patient denied homicidal ideation intent or plan. The patient denied auditory and/ or visual hallucinations. He denied recent seizures, agitation, shaking. He reported having alcohol cravings. MDD He reported feeling depressed for more than 2 weeks and is unable to keep up with taking care of himself. He reported feeling empty inside, feelings of hopelessness, and worthlessness. He denied unintentional weight loss and appetite. Denied interruption of sleep. He has been thinking of suicide lately. Bipolar He reported having a manic episode symptoms of gilma lasting more than a week, with the last episode being a year ago. He describes this as feeling indestructible, increased talkativeness, and going on a cleaning binge. Anxiety Denied having symptoms of anxiety such as having times where heart feels that it is beating out of chest , sweaty palms, or shallow breathing. Denied having uncomfortable or intrusive thoughts. Denied feeling restless, high strung, or worrying too much most of the time. He describes having panic attacks with the last episode being at age [age] years old. Psychosis Does not endorse hearing things that other people do not hear or seeing things other people do not see. Denied feeling that TV is making references. Denied feeling that people are spying , following , or reading their thoughts. Phobias: Patient denied having excessive fear of a particular thing or situation. Eating disorders: Patient denied having excessive eating habits or feelings of guilt after eating. Denied repeated episodes of self induced vomiting after eating. PTSD Denied flashbacks, nightmares and avoidance of a prior traumatic event. PAST PSYCHIATRIC HISTORY: Prior Diagnosis : Bipolar I, alcohol use disorder, cannabis use disorder, Opioid use disorder, antisocial personality disorder, attention deficit hyperactivity disorder, generalized anxiety disorder. History of past Psychiatric Hospitalizations: 5 x prior psychiatric hospitalizations at [facility] in 1999, 2008, 2013 and twice in 2018 Last being in September 2018 History of past suicide/homicide attempts : 3 past suicide attempts. Overdose of pills October 13 and was hospitalized at [facility]. Several attempts including placing a loaded gun to his head when he was in his 20s and intentional overdose in 2011, attempting to hang himself in November 2017 He denied past homicidal incidents. Outpatient follow-up: [facility] in the past Medications: Past trials of medications include [place], Ritalin, gabapentin, citalopram, bupropion, lamotrigine, aripiprazole, clonazepam, alprazolam, diazepam Guardianship: None. FAMILY HISTORY: - Suicide: Denied family history of suicide. - Mental illness: Mother bipolar disorder - Substance abuse: Grandfather alcoholism. SUBSTANCE ABUSE HISTORY: - EtOH: 750ml of vodka/ per day, for the last 4 months, no seizures, DTs , blackouts or legal issues - Tobacco: smokes 1/2 pack per day - Cannabis: occasional use - Opiate: In mid 20s abused oxycontin and heroin. He was placed on suboxone at [facility]. Currently receiving suboxone 8mg/ 2mg from Dr. Gillespie - Cocaine: used in his 20s, denied recent use. - Substance abuse treatment: Past substance abuse treatment at [facility] in 1998 [facility] 2008. In 2012, he had a hospitalization at the dual diagnosis recovery center in [place], [place] and in 2016, he was court ordered to treatment at the [facility] [address] in [place], [place]. SOCIAL HISTORY: Grew up in [place] and raised by both parents until age of 12 when his parents . He has 3 sons and 1 daughter. 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 Currently living at a friends house in [place]. - Education: High school. - Relationship: . - Legal history: Multiple arrests. At this time he is court mandated to serve correction time in March for violation of protection order - service history: Denied PAST MEDICAL HISTORY: Denied heart disease, diabetes, cancer. Prior history of Lyme disease. - Allergies: Denied drug or other allergies. Physical Exam: Please see ED note Mental Status Exam on Admission APPEARANCE : 38 year old male who appears stated age. Patient has short hair appears to have fair hygiene and grooming. BEHAVIOR: Cooperative EYE CONTACT: fair PSYCHOMOTOR ACTIVITY: mild psychomotor retardation. MOVEMENTS: No abnormal movements observed. SPEECH : Slow rate, rhythm, volume and tone. MOOD : " Depressed " AFFECT : Type is depressed Range is restricted with shallow depth Mood Incongruent THOUGHT PROCESS: loose associations THOUGHT CONTENT: poverty of content PERCEPTION: No current auditory or visual hallucinations. Doesnt appear to be responding to internal cues. No evidence of depersonalization , de-realization, or illusions SUICIDALITY suicidal ideation with plan HOMICIDALITY Denied homicidal ideation, intent or plan. Insight/judgment: Poor insight and judgment ORIENTATION: Oriented to self, location, month not year. Diagnosis on Admission: Bipolar I disorder, currently depressed without psychotic features , Alcohol use disorder, Opioid use disorder. Tobacco use disorder. Antisocial personality disorder by history. Diagnosis on Discharge: Bipolar I disorder, in partial remission, Alcohol use disorder, Opioid use disorder in partial remission. Tobacco use disorder. Antisocial personality disorder by history. Wernicke encephalopathy resolved. Condition at the time of discharge: At the time of discharge patient showed improvement of sleep and appetite. The patient was not a danger to self or others. The patient denied suicidal ideation , intent or plan. The patient denied homicidal targets, ideation, intent or plan. This patient participated in psychosocial rehabilitation and gained some insight into problems. The patient gained insight into mental illness, triggers, and treatment. The patient took medication as prescribed. The patient denied side effects of medication and objective signs of side effects were not evident. Therapy Resources were offered to the patient. Patient was given a supply of prescriptions at the time of discharge. The patient plans to attend follow up care with the follow up arrangements that were discussed and put in place. Patient was asked to keep appointments as scheduled, take medication as prescribed, have routine follow up care with their primary care physician and refrain from any use of alcohol or drugs. Objective - General Observations Appearance: Neat Appears Stated Age: Yes Stature: WNL Posture: WNL Eye Contact: Average Behavior/Activity: WNL - Interaction Observations Attitude Towards Examiner: Cooperative Stated Mood: Euthymic Affect: Full Speech Pattern/Tone: Clear Thought Process: Coherent Perception: WNL Thought Content: WNL Hallucination Type: None Delusion Type: None - Cognitive Function Orientation: A&O x 4 Level of Consciousness: Awake Cognition: WNL - Medication Compliance Cooperative with Inpatient Medication Regimen: Yes - Group Participation Participates in Group Activities: Yes Treatment Course & Assessment Clinical Course & Impression: Hospital course part A: Hospital course part B: Labs ordered included CBC, CMP, UDS, TSH, HBA1c, TSH, Toxicology screen, Urine analysis, T4, B12, ammonia, amylase, RPR, and lipid profile. Labs were reviewed and did not require the need for further evaluation. Vital signs were monitored during the course of admission. EKG ordered The patient was admitted to the adult behavioral unit and placed on 15 minute check for safety. At a later time the patient was on Q30 minute observation and staff pass privileges. With those limits being extended , there were no occurrence of behavioral incidents. The patient improved while on the unit during the latter course of his stay. Interacted with peers had adequate sleep and regular appetite. Tolerated medication changes without side effects. Group therapy and services were offered. The risks, benefits, and alternative treatment options were discussed as well as of the risks of refusing treatment. Treatment associated risks discussed. After this discussion made an acknowledgement of this understanding. Follow up care appointments were put in place for follow up care. The importance of monitoring for metabolic changes was discussed and acknowledgement of this understanding was made. Improvements in patient from the time of admission include: Improved mental status, affect, sleep and decrease in anxiety. No longer confused, suicidal and no longer having feelings of hopelessness. The patient expressed readiness for discharge home. The patient presents with a broader range of affect, and the absence of depressed mood, delusions, perceptual disturbances. The patient denied suicidal and or homicidal ideation intent or plan. Overall, the patient responded well to inpatient treatment as evidenced by their report of strengthening of coping mechanisms, reduced distress, and more positive outlook on circumstances. Of note there was an improvement of recognizing how emotional state can effect mood and behavior. Safety precautions were put in place which included involving the patient and their family to closely monitor for changes in mental state. In addition, implementing follow up care, screening for the need to remove/securing firearms , weapons and stockpile of medications. Patient instructed to immediately call 911 should any safety concerns arise. AIMS was performed and insignificant for involuntary movement disorders. The patient was advised of the 24 hour / 7 days a week availability of the emergency room and to call 911 in the event of an emergency such as being suicidal and/ or homicidal. The patient was informed of the contact information for [facility] Behavioral Services Unit, Suicide Prevention and Crisis Services, National Suicide Prevention Lifeline, [facility], Alcoholics Anonymous, and [facility]. [place] level was 0.78 and within normal limits. They tolerated medications and were advised about the importance of monitoring medication levels after leaving the hospital. Patient was confused during the first part of his admission. No seizure events occurred during the course of admission. ETOH withdrawal and Wernicke encephalopathy was suspected and treatment was provided. With 250mg IM thiamine daily for 4 days. Upon first administration the patient became alert and was no longer confused. Lab testing T4, B12, ammonia, amylase, RPR, repeat CBC and CMP was done and insignificant. WAMs protocol was implemented and discontinued. Ativan taper 1mg four times a day for one day and 0.5mg four times a day thereafter and slowly tapered off. His home medications were continued. [employer] [place] was checked and verified suboxone dose before continued. Substance Abuse resources offered and he declined inpatient rehabilitation Nicotine supplement offered and put in place for Tobacco use disorder. He declined tobacco cessation resources. Patient advised to go to AA and NA. He was advised about the risk of permanent irreversible effects of chronic alcohol use. Much of his current stressors included going to correction in April for violation of personal protection order. Patient wants to live for children. Patient will be discharged to live at home with his mother. Follow up appointment at [facility] substance abuse program and Genevieve Tony. He was advised to follow up with a PCP. Patient informed of follow up appointment times. See more details for follow up care in the discharge plan. Risk factors: , not , history of affective illness, prior suicide attempt. Alcohol and substance abuse history. Protective factors: Currently no suicidal ideation, intent or plan. Has children. Has strong support system. No history of service. Currently no feelings of hopelessness, not in an occupation of social isolation, doesnt have multiple medical conditions, no family history of suicide, doesnt have access to firearms. Doesnt have command hallucinations and or psychotic features at this time. Not an anniversary of a loss of a loved one. Patient engaged in treatment and compliant with medication. Sodium 137 mmol/L (135-145) 03/03/19 14:26 Potassium 4.2 mmol/L (3.5-5.0) 03/03/19 14:26 BUN 16 mg/dL (6-24) 03/03/19 14:26 Creatinine 1.06 mg/dL (0.67-1.17) 03/03/19 14:26 Hemoglobin A1c 5.1 % (4.0-5.6) 03/03/19 08:42 Calcium 9.4 mg/dL (8.6-10.3) 03/03/19 14:26 AST 21 U/L (13-39) 03/03/19 14:26 ALT 26 U/L (7-52) 03/03/19 14:26 Triglycerides 145 mg/dL 03/03/19 08:42 Cholesterol 153 mg/dL 03/03/19 08:42 LDL Cholesterol 68 mg/dL 03/03/19 08:42 Vital Signs Temp Pulse Resp BP Pulse Ox 98.7 F 94 16 107/64 99 03/07/19 08:00 03/07/19 08:00 03/07/19 11:00 03/07/19 08:00 03/07/19 08:00 Merits Inpatient Hospitalization: No Clear for Discharge: Adequate Clinical Respons Inpatient DSM-V Dx: F31.4 Discharge Planning - Discharge Planning Medications: Current Medications Acetaminophen (Tylenol Tab*) 650 mg PO Q4H PRN PRN Reason: PAIN Last Admin: 03/05/19 20:24 Dose: 650 mg Al Hydrox/Mg Hydrox/Simethicone (Maalox Plus*) 30 ml PO Q4H PRN PRN Reason: INDIGESTION Aripiprazole (Abilify Tab*) 5 mg PO BEDTIME [facility] Last Admin: 03/06/19 20:09 Dose: 5 mg Buprenorphine/Naloxone (Suboxone 8 Mg-2 Mg Sl Film) 1 each SL FILM DAILY [facility] Last Admin: 03/06/19 14:58 Dose: 1 each Folic Acid (Folvite Tab*) 1 mg PO DAILY [facility] Last Admin: 03/06/19 14:57 Dose: 1 mg [place] Carbonate ([place] Carbonate Tab*) 600 mg PO BID [facility] Last Admin: 03/06/19 20:08 Dose: 600 mg Lorazepam (Ativan Tab(*)) 0.5 mg PO BID [facility] Last Admin: 03/06/19 20:08 Dose: 0.5 mg Multivitamins/Minerals (Theragran/Minerals Tab*) 1 tab PO DAILY [facility] Last Admin: 03/06/19 14:58 Dose: 1 tab Nicotine (Nicotine Patch 21 Mg/24 Hr*) 1 patch TRANSDERM DAILY [facility] Last Admin: 03/06/19 14:58 Dose: 1 patch Nicotine Polacrilex (Nicotine Gum*) 4 mg PO Q2H PRN PRN Reason: CRAVING Last Admin: 03/05/19 16:10 Dose: 4 mg Pharmacy Profile Note (Nicotine Patch Removal Note*) 1 note FOLLOW UP 2100 [facility] Last Admin: 03/06/19 21:36 Dose: 1 note Thiamine HCl (Vitamin B-1 Tab*) 100 mg PO DAILY [facility] Last Admin: 03/06/19 14:57 Dose: 100 mg Thiamine HCl (Vitamin B1 Iv*) 250 mg IM DAILY@0900 [facility] Last Admin: 03/06/19 15:03 Dose: Not Given Topiramate (Topamax(*)) 200 mg PO DAILY [facility] Last Admin: 03/06/19 14:58 Dose: 200 mg Discharge Planning: Prescriptions provided for discharge [x] Yes [] No Follow up care details as per social work arrangements. Patient response to discharge plan: [] eager for discharge [x] agreeable with discharge plan [] ambivalent about discharge [] disagrees with discharge today
[2019-03-07] MEDS: LORazepam TAB(*) 0.5 MG PO SCH (09:05)
[2019-03-07] MEDS: Thiamine TAB* 100 MG TAB PO SCH (09:06)
[2019-03-07] MEDS: Nicotine PATCH 21 MG/24 HR* PATCH TRANSDERM SCH (09:06)
[2019-03-07] MEDS: Lithium Carbonate TAB* 300 MG PO SCH (09:06)
[2019-03-07] MEDS: Buprenorp/Nalox 8-2 MG FILM SL FILM SCH (09:06)
[2019-03-07] MEDS: Multivitamins/Minerals TAB PO SCH (09:06)
[2019-03-07] MEDS: Folic Acid TAB* 1 MG PO SCH (09:06)
[2019-03-07] MEDS: Topiramate TAB(*) 100 MG PO SCH (09:06)
[2019-03-07 11:22] VITALS: BP 107/64
== END 2019-03-07 11:45 | disposition home or self-care (01) | DRG 753 ==
LOC: ED 15:09 → BSU 03-01 10:36
PROVIDERS: ADMIT Psychiatry & Neurology Psychiatry; ATTEND Psychiatry & Neurology Psychiatry
DX: F31.4 Bipolar disorder, current episode depressed, severe, without psychotic features (principal); E51.2 Wernicke's encephalopathy; R45.851 Suicidal ideations; F60.2 Antisocial personality disorder; F90.9 Attention-deficit hyperactivity disorder, unspecified type; F41.1 Generalized anxiety disorder; F17.210 Nicotine dependence, cigarettes, uncomplicated; F10.20 Alcohol dependence, uncomplicated; F12.90 Cannabis use, unspecified, uncomplicated; F11.90 Opioid use, unspecified, uncomplicated; Z86.19 Personal history of other infectious and parasitic diseases; Z83.3 Family history of diabetes mellitus; Z91.5 Personal history of self-harm; Z81.8 Family history of other mental and behavioral disorders; Z81.1 Family history of alcohol abuse and dependence
CPT/HCPCS: 36415; 80053; 80061; 80178; 80307; 80320; 80329; 81003; 81015; 82140; 82150; 82607; 83036; 84439; 84443; 85025; 86780; 87086; 93005; 99222; 99231; 99233; 99238; 99284; A9270-GY; G0480; J2060; J3411